=== PATIENT | female | born 1965 | race Caucasian/White ===

== ENCOUNTER → 2017-11-02 07:03 | Outpatient (CLI) | payer BC, SELFPAY ==
--- NOTE | 2017-11-02 07:07 | BI_ITS ---
MAMMOGRAPHY - BILATERAL SCREENING REASON FOR EXAM: Female, 51 years old. Routine annual screening examination. PERTINENT HISTORY: Sister with breast cancer. TECHNIQUE: Digital bilateral breast alena (3D mammographic acquisition) in the CC and MLO projections. 2-D mediolateral oblique (MLO) and craniocaudad (CC) views of both breasts were obtained. CAD: Full Field Digital Mammography with Computer Added Detection was performed. COMPARISON: Comparison is made with prior outside examination dated October 20, 2016. FINDINGS: Breast Composition: The breasts are heterogeneously dense, which may obscure small masses. There are no dominant masses or suspicious calcifications. Stable 7.9 mm x 7.4 mm fat-containing nodule in the upper lateral portion of the right breast. This most likely represents a benign appearing lymph node. No other significant abnormalities are identified. There has been no significant change since the prior study. BI/SCREENING MAMM (CAD), BILAT IMPRESSION: Stable bilateral screening mammogram. Yearly follow-up mammogram recommended. (A) ASSESSMENT CATEGORY: BIRADS Category 2: Benign. A letter regarding these results will be sent to the patient by the facility within 30 days. Approximately 10% of breast cancers are not detected by mammography. A normal mammogram should not delay biopsy of a clinically suspicious abnormality. [id number] Electronically Signed: Vlad Ignacio MD at 8:41 EDT Tel [phone], Service support ,
== END ==
PROVIDERS: Family Provider Family Medicine; PCP Family Medicine; Visit Provider Obstetrics & Gynecology
DX: Z12.31 Encounter for screening mammogram for malignant neoplasm of breast (principal)
CPT/HCPCS: 77063; 77067

== ENCOUNTER → 2018-04-02 14:44 | Outpatient (CLI) | payer BC, SELFPAY ==
[2018-04-02 17:25] LABS: Absolute Lymphocyte Count 1.94 X10^3/ul (0.83-4.51); Absolute Neutrophil Count 3.6 X10^3/uL (2.0-7.7); Basophil# 0.07 X10^3/uL; Basophil% 1.1 % (0-1); Eosinophil# 0.14 X10^3/uL; Eosinophils% 2.3 % (0-5); Hematocrit 33.2 % (37-47); Hemoglobin 9.5 g/dl (12.0-15.0); Lymphocyte # 1.94 X10^3/ul (4.0); Lymphocyte % 31.8 % (19-41); Mean Corp Hgb Conc 28.6 g/gl (32-36); Mean Corpuscular Hgb 21.3 pg (27.0-32.0); Mean Corpuscular Volume 74.4 fL (81-99); Mean Platelet Vol. 9.6 fl (6.2-12.0); Monocyte# 0.38 X10^3/uL; Monocyte% 6.2 % (0-10); Neutrophil # 3.57 X10^3/uL (2.7-7.7); Neutrophil % 58.6 % (47-70); Platelet Count 310 K/mm3 (150-450); RBC Distribution Width CV 16.8 % (11.6-14.6); RBC Distribution Width SD 46.4 fl (35.1-43.9); Red Blood Count 4.46 M/mm3 (4.2-5.4); White Blood Count 6.1 K/mm3 (4.4-11.0)
[2018-04-02 17:31] LABS: POSITIVE COUNT NO; POSITIVE DIFFERENTIAL NO; POSITIVE MORPHOLOGY NO
[2018-04-02 17:38] LABS: Vitamin D,25 Hydroxy 21.3 ng/mL (29.95-100.01)
[2018-04-02 17:40] LABS: AST(SGOT) 19 U/L (15-37); Alanine Aminotransfer ALT/SGPT 23 U/L (13-56); Albumin, Serum 3.8 g/dL (3.2-5.0); Alkaline Phosphatase 75 U/L (45-117); Anion Gap 7 (5-15); BUN 16 mg/dL (7-18); BUN/Creat Ratio 28.1 RATIO (10-20); Calcium,Total 8.5 mg/dL (8.5-10.1); Chloride 106 mmol/L (98-107); Cholesterol 209 mg/dL (200); Creatinine, Serum 0.57 mg/dL (0.55-1.02); EST Glomerular Filtration Rate 119 mL/min (>60); Est Glom Filt Rate - Afr Amer 144 mL/min (>60); Glucose 94 mg/dL (74-106); High Density Lipoprotein 45 mg/dL; Potassium 3.9 mmol/L (3.5-5.1); Protein, Total 7.8 g/dL (6.4-8.2); Sodium Level 140 mmol/L (136-145); Triglycerides 167 mg/dL; Very Low Density Lipoprotein 33 mg/dL (5-40)
[2018-04-02 18:02] LABS: Anisocytosis 1+; Hypochromasia 2+; Microcytosis 1+; Platelet Estimate ADEQUATE (ADEQ)
[2018-04-02 18:03] LABS: Ovalocyte RARE
--- OUTSIDE RECORDS SUMMARY | 2018-05-28 14:11 | XMS RPT_ITS ---
:1965 Author Organization OHIP Care Team Providers Name Role Phone Khadijah Hill Attending Unavailable Khadijah Hill Referring Unavailable Cebul III, Rinku Primary Care Unavailable Khadijah Hill Attending Unavailable Cebul III, Rinku Referring Unavailable Cebul III, Rinku Primary Care Unavailable Vega Strickland Attending Unavailable Vega Strickland Primary Care Unavailable Nurse, Standard Attending Unavailable Vega Strickland Referring Unavailable PROBLEMS PROBLEMS DATE TYPE CONDITION / CODE ATTENDING STATUS SOURCE 04/02/2018 Unknown Z00.00 - Encounter Vega Strickland Active Rony for general adult [facility] without abnormal Repository findings / Z00.00(ICD-10) 04/02/2018 Unknown E55.9 - Vitamin D Vega Strickland Active Rony deficiency, Community unspecified / Hospital E55.9(ICD-10) Repository 11/19/2017 Unknown Z01.419 - Encounter Yakov Hill for gynecological [facility] (general) (routine) Repository without abnormal findings / Z01.419(ICD-10) 01/19/2018 Unknown Z12.31 - Encounter Yakov Hill for screening [facility] mammogram for Hospital malignant neoplasm Repository of breast / Z12.31(ICD-10) PROCEDURES PROCEDURES No Procedure Records FoundRESULTS RESULTS CBC W/DIFF, AUTOMATED Collected: 04/02/2018 Status: F Source: RONY 2:45 PM [facility] REPOSITORY TYPE CODE TESTS RESULT OUT OF RANGE REFERENCE UNITS LAB L100.1000 4.4-11.0 K/mm3 Normal WBC 6.1 LAB L100.1200 4.2-5.4 M/mm3 Normal RBC 4.46 LAB L100.1300 12.0-15.0 g/dl Low HGB 9.5 LAB L100.1400 37-47 % Low HCT 33.2 LAB L100.1500 81-99 fL Low MCV 74.4 LAB L100.1600 27.0-32.0 pg Low MCH 21.3 LAB L100.1700 32-36 g/gl Low MCHC 28.6 LAB L100.1810 11.6-14.6 % High RDW CV 16.8 LAB L100.1820 35.1-43.9 fl High RDW SD 46.4 LAB L100.1900 150-450 K/mm3 Normal PLT 310 LAB L100.2000 6.2-12.0 fl Normal MPV 9.6 LAB L100.2100 47-70 % Normal NEUT% 58.6 LAB L100.2200 19-41 % Normal LY% 31.8 LAB L100.2300 0-10 % Normal MONO% 6.2 LAB L100.2400 0-5 % Normal EO% 2.3 LAB L100.2500 0-1 % High BASO% 1.1 LAB L100.2550 0.0-0.9 % Normal IM GRAN % 0.000 Result Comment: IG% - Immature Granulocytes (promyelocytes, myelocytes and metamyelocytes) > 1% indicates that a LEFT SHIFT is Present. LAB L100.2620 2.0-7.7 X10 3/uL Absolute Neut Normal 3.6 LAB L100.2720 0.83-4.51 X10 3/ul Absolute Lymph Normal 1.94 LAB L100.5500 ADEQ PLT EST Normal ADEQUATE LAB L100.7300 ANISO Normal 1+ LAB L100.7600 HYPOCHROMASIA Normal 2+ LAB L100.7700 MICROCYTES Normal 1+ LAB L100.8200 OVALOCYTE Normal RARE Performed By: #### L100.0100 #### [facility] [address] [place], [address] VITAMIN D,25 HYDROXY Collected: 04/02/2018 Status: F Source: MONTROSE 2:45 PM [facility] REPOSITORY TYPE CODE TESTS RESULT OUT OF REFERENCE UNITS RANGE LAB L506.1000 29.95-100.01 ng/mL Low Vitamin D 21.3 25-OH Result Comment: Vitamin D 25(OH) Status Range Deficiency <20 ng/mL (50nmol/L) Insuffciency 20 - 30 ng/mL (50 - 75 nmol/L) Sufficiency 30 - 100 ng/mL (75 - 250 nmol/L) Toxicity >100 ng/mL (>250 nmol/L) Performed By: #### L506.1000 #### [facility] [address] [place], [address] COMPREHENSIVE METABOLIC Collected: 04/02/2018 Status: F Source: RONY [facility] 2:45 PM [facility] REPOSITORY TYPE CODE TESTS RESULT OUT OF RANGE REFERENCE UNITS LAB L501.0100 74-106 mg/dL Normal GLU 94 Result Comment: Please note revised GLUCOSE reference range effective 2017. LAB L501.1000 7-18 mg/dL Normal BUN 16 LAB L501.1100 0.55-1.02 mg/dL Normal CREAT,SERUM 0.57 Result Comment: The validity of the calculated GFR AND GFRAA in patients over 70 years has not been determined. Clinical correlation is essential. LAB L501.1110 >60 mL/min Normal EST GFR 119 Result Comment: Non- GFR Calc LAB L501.1115 >60 mL/min Normal EST GFR - AA 144 Result Comment: GFR Calc LAB L501.1300 10-20 RATIO High BUN/CRE 28.1 LAB L501.1500 6.4-8.2 g/dL T Normal PROT 7.8 LAB L501.1800 3.2-5.0 g/dL Normal ALB 3.8 LAB L501.1950 2.2-4.2 g/dL Normal GLOB 4.0 LAB L501.2000 0.9-2.4 RATIO Normal A/G 1.0 LAB L501.2200 8.5-10.1 mg/dL CA Normal 8.5 LAB L501.4100 15-37 U/L Normal AST 19 LAB L501.4305 45-117 U/L Normal ALK P 75 LAB L501.4405 13-56 U/L Normal ALT 23 LAB L501.4600 0.20-1.00 mg/dL T Normal BILI 0.30 LAB L501.5300 136-145 mmol/L NA Normal 140 LAB L501.5600 3.5-5.1 mmol/L K Normal 3.9 LAB L501.5900 98-107 mmol/L CL Normal 106 LAB L501.6100 21.0-32.0 mmol/L Normal CO2 27.0 LAB L501.6200 5-15 Normal GAP 7 Performed By: #### L500.4050, L500.4100 #### [facility] [address] [place], [place], [id number] LIPID PROFILE Collected: 04/02/2018 Status: F Source: RONY 2:45 PM [facility] REPOSITORY TYPE CODE TESTS RESULT OUT OF RANGE REFERENCE UNITS LAB L501.4900 200 mg/dL High CHOL 209 Result Comment: <200 mg/dL Desirable 200-240 mg/dL Borderline >240 mg/dL High Risk LAB L501.5000 mg/dL Normal TRIG 167 Result Comment: The drugs N-Acetylcysteine and Metamizole may falsely depress this assay. Serum Triglycerides Reference Interval Normal <150 mg/dL Borderline high 150 - 199 mg/dL High 200 - 499 mg/dL Very High > or = 500 mg/dL LAB L501.6400 mg/dL Normal HDL 45 Result Comment: The drugs N-Acetylcysteine and Metamizole may falsely depress this assay. Reference Range HDL <40 mg/dL Low HDL Cholesterol HDL >or= 60 mg/dL High HDL Cholesterol LAB L501.6500 0-130 mg/dL High LDL 131 LAB L501.6600 5-40 mg/dL Normal VLDL 33 Performed By: #### L500.4050, L500.4100 #### [facility] [address] [place], [place], [id number] [employer] SPECIALIST OFFICE VISIT Observed: 11/19/2017 Status: F Source: RONY REPORT 5:02 PM [facility] REPOSITORY [facility] [address] [place] [address] OFFICE VISIT Date of Service: 11/19/17 MR#: [id number] Acct: [id number] Name: ELZBIETA JENNINGS Rep #: [id number] : 1965 Provider: Khadijah Hill MD Age/Sex: 52/F Location[place] [facility] Status: Signed Intake Vital Signs11/19/17 Height 5 ft 4 in 11/19/17 Weight: 128 lb 6 oz 11/19/17 Body Mass Index (BMI) 22.0 11/19/17 Blood Pressure 121/82 Intake Visit Reasons: ANNUAL Chief Complaint: est annual Library Media Assistant Required: No Is patient in pain?: No Allergies No Known Allergies Allergy (Unverified 11/19/17 16:25) Medications fexofenadine 180 mg tablet 180 mg PO Q24H 11/19/17 [History Confirmed 11/19/17] mometasone 50 mcg/actuation nasal spray 2 spray INTRANASAL QDAY 11/19/17 [History Confirmed 11/19/17] Is last menstrual period known: Yes Last Menstral Period: 11/15/17 Patient : No : No PFSH Medical History Asthma (Acute) Fibrocystic breast disease (Acute) Surgical History H/O tubal ligation (Acute) History of cholecystectomy (Acute) History of wisdom tooth extraction, class II edentulism (Acute) Family History Mother Thyroid disorder Diabetes Father Hypertension Sister Breast cancer Social History Smoking Status: Never smoker alcohol intake: never substance use type: does not use caffeine: Yes what type of physical activity do you participate in: walking seatbelt use: always do you feel safe at home: Yes Pregancy History 6 Elective abortions Hx Para 5 Spontaneous abortions Past Pregnancies Del. DateName GA/Weeks Outcome Route Bth WeighInfant GeLabor LgtAnesthesiDel LocatProvider FOB t n h a n HPI ANNUAL: Details: ELZBIETA JENNINGS is a 52 year old who presents for annual exam. Last PAP: [] History of abnormal PAP: [] Last mammogram: [] History of abnormal mammogram: [] Colon cancer screening: [] Other preventative health care screenings: [] Female Reproductive History Last Menstral Period: 11/15/17 Cycle Length: 21-35 Bleeding Duration: 7 Questions: Metorrhagia: No, Sexually active: Yes (no issues) ROS Const Constitutional: Reports as per HPI; denies poor appetite, fatigue, increased appetite, weight gain or weight loss Cardio Card: Denies chest pain Resp Resp: Denies dyspnea or cough GI GI: Reports as per HPI; denies bloating, abdominal pain, constipation, vomiting or nausea : Reports as per HPI, urinary incontinence (mild urine loss) and other; denies blood in urine, vaginal odor, vaginal itching, vaginal dryness, vaginal discharge, urinary urgency, urinary frequency, pelvic pain, painful urination, difficulty urinating, prolapse symptoms or nipple discharge Skin Skin/Breast: Denies breast pain, breast skin changes, nipple discharge, breast lump or changing lesions Exam Const General: cooperative, healthy appearing, comfortable, no acute distress, well developed, well groomed HENLA Head: normal to inspection, normocephalic Ears: hearing grossly normal bilaterally, external ears normal Nose: external nose normal Face and sinus: normal facial exam Neck Neck: normal visual inspection, full ROM, no lymphadenopathy Thyroid: thyroid normal Chest Chest palpation AND inspection: normal inspection of the chest Breast inspection: normal inspection of the breasts, normal inspection of the axillae Breast palpation: normal palpation of the breasts, normal palpation of the axillae, no axillary lymphadenopathy Resp Effort AND Inspection: normal respiratory effort GI Inspection: normal to inspection, non-distended Palpation: no guarding, soft, no hepatosplenomegaly General: bladder normal to palpation External Female Exam: normal external appearance, normal appearance of the urethra, no lesions Urethra: normal appearance of the urethra, normal palpation Speculum Exam - Vagina: normal appearance of the vagina, normal vaginal discharge Speculum Exam - Cervix: normal appearance of the cervix, no cervical discharge, no lesions, nontender Bimanual Exam- Vagina AND Uterus: No cervical tenderness, normal bimanual exam, uterine size normal, bladder normal to palpation, uterine mobility normal, uterine consistency normal, uterus non-tender, no cervical motion tenderness Bimanual Exam- Adnexa, other: normal adnexae, no adnexal masses, adnexae non-tender Skin General: no rashes or lesions noted Neuro General: alert, moves all extremities, no focal motor deficits Extrem General: no pedal edema, normal to inspection Psych Appearance: grossly normal Mental Status: mental status grossly normal Affect: normal affect Speech and Movement: speech and movement normal Attitude: cooperative Assessment AND Plan Problems 1. Encounter for gynecological examination without abnormal finding Z01.419 Plan Cervical cancer screening: pap hpv 2016 Breast cancer screening: mamm 11/02/17 other health maintenance examination reviewed and up to date. Encouraged maintenance of a healthy weight and active lifestyle and handout given. Calcium/vitamin D recommendations provided. Annual exam handout including recommendations for good health guidelines and basic screening information given. Problem list up to date, see problem list details for any additional plan information. Follow up in one year for annual health maintenance exam or sooner if needed. Coding Level of Care Code Off vis,est,prev 40-64yrs Diagnoses Encounter for gynecological examination without abnormal finding Z01.419 Gynecological examination findings: abnormal findings ABSENT 11/19/17 1702 <Electronically signed by Khadijah Hill MD> Date Khadijah Hill MD Cosign Signature: Date (if applicable) CC: SCREENING MAMM (CAD), Observed: 11/02/2017 Status: F Source: RONY JESSICA 7:07 AM [facility] REPOSITORY [facility] Imaging Services [address] [place] [address] SCREENING MAMM (CAD), BIL MR#: [id number] Acct: [id number] Name: ELZBIETA JENNINGS Rep #: [id number] : 1965 F 51 From: Vlad Ignacio MD PCP: Rinku Stanley III, MD Status: REG CLI Study: SCREENING MAMM (CAD), BILAT Date of Exam: 11/02/17 Exam# [id number] Ordering Dr: Khadijah Hill MD MAMMOGRAPHY - BILATERAL SCREENING REASON FOR EXAM: Female, 51 years old. Routine annual screening examination. PERTINENT HISTORY: Sister with breast cancer. TECHNIQUE: Digital bilateral breast alena (3D mammographic acquisition) in the CC and MLO projections. 2-D mediolateral oblique (MLO) and craniocaudad (CC) views of both breasts were obtained. CAD: Full Field Digital Mammography with Computer Added Detection was performed. COMPARISON: Comparison is made with prior outside examination dated October 20, 2016. FINDINGS: Breast Composition: The breasts are heterogeneously dense, which may obscure small masses. There are no dominant masses or suspicious calcifications. Stable 7.9 mm x 7.4 mm fat-containing nodule in the upper lateral portion of the right breast. This most likely represents a benign appearing lymph node. No other significant abnormalities are identified. There has been no significant change since the prior study. BI/SCREENING MAMM (CAD), BILAT IMPRESSION: Stable bilateral screening mammogram. Yearly follow-up mammogram recommended. (A) ASSESSMENT CATEGORY: BIRADS Category 2: Benign. A letter regarding these results will be sent to the patient by the facility within 30 days. Approximately 10% of breast cancers are not detected by mammography. A normal mammogram should not delay biopsy of a clinically suspicious abnormality. 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 ALLERGIES ALLERGIES DATE TYPE / CODE NAME / CODE REACTION SEVERITY SOURCE 11/19/2017 Drug No Known Unknown Gary [facility] Allergy/4160 Allergies/F00 [facility] [address](SNOMED [id number](RXNOR Repository CT) M) ENCOUNTERS ENCOUNTERS ADMIT/DISCHARGE ACCOUNT ADMITTING ENCOUNTER LOCATION SOURCE NUMBER CLASS 04/09/2018/ [id number] Ambulatory BMSBuilding:B Rony 8 6 MS.WSA [facility] Repository 04/02/2018 [id number] Ambulatory Gary Gary 9 [facility] ing:BFHLAB Repository 11/19/2017/ [id number] Ambulatory BMSBuilding:B Rony 8 3 [facility] Repository 11/02/2017 [id number] Ambulatory Gary Rony 5 [facility] ing:OPBI Repository PAYERS PAYERS ENCOUNTER GUARANTOR PAYER SUBSCRIBER SOURCE 04/09/2018 ELZBIETA Malik Primary TOMÁS Gary [id number] Insurance:ANTHEMPolic ZOLLINGERDOB: [facility] AMAYA OJEDA y Number: [id number], [place] [id number] Repository [address]Spz: (330) Date:9018-01-83EY [phone] () [id number] [address]WJ: 04/09/2018 Secondary NOT GIVENUNK Gary Insurance:SELF PAY [facility] Number: Effective Repository Date:2018-04-09 04/02/2018 ELZBIETA Malik Primary TOMÁS Rony [id number] Insurance:ANTHEMPolic ZOLLINGERDOB: [facility] y Number: [id number], [place] [id number] Repository [address]Jjm: (330) Date:6408-28-78UK [phone] () [address]NTMOUYD, [place] [address]KW: 04/02/2018 Secondary NOT GIVENUNK Rony Insurance:SELF PAY [facility] Number: Effective Repository Date:2018-04-02 11/19/2017 Tomás Primary Tomás Rony [id number] Insurance:ANTHEMPolic ZollingerDOB: [facility] y Number: [id number], [place] [id number] Repository [address]Bla: (330) Date:[id number] [phone] () [id number], [place] [address]HN: 11/19/2017 Secondary NOT GIVENUNK Gary Insurance:SELF PAY [facility] Number: Effective Repository Date:2017-11-19 11/02/2017 Tomás Primary Tomás [address] [id number] Insurance:ANTHEMPolic ZollingerDOB: [facility] [place] [facility] y Number: [id number], [place] [id number] Repository [address]Wmt: 330) Date:0161-95-51AI [phone] () [id number] [place] [address]IW: 11/02/2017 Secondary NOT GIVENUNK Gary Insurance:SELF PAY [facility]: Effective Repository Date:2017-09-11
== END ==
PROVIDERS: Family Provider Family Medicine; PCP Family Medicine; Visit Provider Family Medicine
DX: Z00.00 Encounter for general adult medical examination without abnormal findings (principal); E55.9 Vitamin D deficiency, unspecified
CPT/HCPCS: 36415; 80053; 80061; 82306; 85025

== ENCOUNTER 2018-05-14 06:57 | Day surgery (SDC) | payer BC, SELFPAY ==
[2018-05-14] VITALS (9 sets, daily range): BP systolic 103–137; BP diastolic 63–87; PULSE 74–96; RESP 14–18; TEMP 36.7–37.1; O2SAT 97–100; BMI 22.6
--- NOTE | 2018-05-14 07:53 | PCM.HP.STD ---
Problem List (1) Screening for intestinal cancer Status: Acute History of Present Illness Date of Admission: 05/14/18 The patient is a 52 year old F who presents for screening colonoscopy. She has not had a previous colonoscopy. She enjoys good health. She denies bright red blood per rectum or melena. No abdominal pain. No weight change. There is no family history of colon cancer Past Medical History Medical History: Medical History (Last Updated 11/19/17 @ 16:27 by Dyana Mauro) Asthma J45.909 Fibrocystic breast disease N60.19 History of wisdom tooth extraction, class II edentulism K08.492 Allergies Sulfa (Sulfonamide Antibiotics) Allergy (Verified 05/14/18 07:11) Rash amoxicillin [From Augmentin] Adverse Reaction (Verified 05/14/18 07:11) Vomiting clavulanic acid [From Augmentin] Adverse Reaction (Verified 05/14/18 07:11) Vomiting Home Medications: Ambulatory Orders Medication Instructions Recorded fexofenadine 180 mg tablet 180 mg PO Q24H 11/19/17 mometasone 50 mcg/actuation nasal 2 spray INTRANASAL QDAY PRN 11/19/17 spray Cholecalciferol (Vitamin D3) 5,000 unit PO MOTH 04/15/18 [Vitamin D3] I-X Herbal Supplement 2 tab PO BID 04/15/18 Surgical History: Surgical History (Last Updated 11/19/17 @ 16:27 by Dyana Mauro) H/O tubal ligation Z98.51 History of cholecystectomy Z90.49 Smoking Status: Never smoker Review of Systems Constitutional: Denies: Anorexia HEENT: Denies: Difficulty Swallowing Cardiovascular: Denies: Chest Pain Respiratory: Denies: Cough Gastrointestinal: Denies: Abdominal Pain, Diarrhea Endocrine: Denies: Change in Body Habitus VTE Information - Inpt Only VTE Present on Admission: No Patient Problems: Active and Suspected Problems (Last Updated 11/19/17 @ 16:27 by Dyana Mauro) Screening for intestinal cancer (Acute) - Physical Exam General: Alert, Oriented x3, Cooperative, No apparent distress HEENT: Atraumatic Oral: Moist Mucosa Neck: Supple Lungs: Clear to auscultation Cardiovascular: Regular rate, Regular Rhythm Abdomen: Bowel Sounds Present, Soft, Non Tender, Non-Distended Extremities: No Calf Tenderness Skin: No rashes Vital Signs Temp Pulse Resp BP Pulse Ox 98.8 F 96 14 130/87 H 100 05/14/18 07:15 05/14/18 07:15 05/14/18 07:15 05/14/18 07:15 05/14/18 07:15 Oxygen Delivery Method Room Air Weight: 127 lb 13.89 oz Body Mass Index (BMI) 22.6 Assessment/Plan All Active Problems (Last Updated 11/19/17 @ 16:27 by Dyana Mauro) Screening for intestinal cancer (Acute) I am recommending to the patient is screening colonoscopy with possible biopsy or polypectomy as indicated. She is aware of the technique, benefits, risks, alternatives. She has had an opportunity to ask and have questions answered. She presents via our open access program today Wally Stanley M.D., F.A.C.S.
--- NOTE | 2018-05-14 08:20 | OP.ENDO_ITS ---
Patient Name: Maryan Patiño Procedure Date: 05/14/2018 7:52 AM Date of : 1965 Age: 52 Procedure: Colonoscopy Indications: Screening for colorectal malignant neoplasm Providers: Wally Stanley MD Referring MD: Lucille Varela MD Medicines: Midazolam 4 mg IV, Meperidine 100 mg IV Patient Profile: Last Colonoscopy: none. The patient's first colonoscopy is today. Complications: No immediate complications. Procedure: Pre-Anesthesia Assessment: - Prior to the procedure, a History and Physical was performed, and patient medications and allergies were reviewed. The patient's tolerance of previous anesthesia was also reviewed. The risks and benefits of the procedure and the sedation options and risks were discussed with the patient. All questions were answered, and informed consent was obtained. Prior Anticoagulants: The patient has taken no previous anticoagulant or antiplatelet agents. ASA Grade Assessment: I - A normal, healthy patient. After reviewing the risks and benefits, the patient was deemed in satisfactory condition to undergo the procedure. After I obtained informed consent, the scope was passed under direct vision. Throughout the procedure, the patient's blood pressure, pulse, and oxygen saturations were monitored continuously. The colonoscope was introduced through the anus and advanced to the cecum, identified by appendiceal orifice and ileocecal valve. The colonoscopy was performed without difficulty. The patient tolerated the procedure well. The quality of the bowel preparation was good. The appendiceal orifice was photographed. Moderate Sedation: Moderate (conscious) sedation was personally administered by the endoscopist. The following parameters were monitored: oxygen saturation, heart rate, blood pressure, and response to care. Total physician intraservice time was 15 minutes. Scope In: 8:01:32 AM Scope Withdrawal Time 0 hours 9 minutes 25 seconds Scope Out: 8:15:06 AM Total Procedure Duration Time 0 hours 13 minutes 34 seconds Findings: The perianal and digital rectal examinations were normal. Scattered diverticula were found in the sigmoid colon. The exam was otherwise without abnormality. Impression: - Diverticulosis in the sigmoid colon. - The examination was otherwise normal. - No specimens collected. Recommendation: - Discharge patient to home. - Resume previous diet. - Continue present medications. - Repeat colonoscopy in 10 years for screening purposes. Procedure Code(s): --- Professional --- 22812, Colonoscopy, flexible; diagnostic, including collection of specimen(s) by brushing or washing, when performed (separate procedure) 92009, 59, Moderate sedation services provided by the same physician or other qualified health nurse care manager performing the diagnostic or therapeutic service that the sedation supports, requiring the presence of an independent trained observer to assist in the monitoring of the patient's level of consciousness and physiological status; initial 15 minutes of intraservice time, patient age 5 years or older Diagnosis Code(s): --- Professional --- Z12.11, Encounter for screening for malignant neoplasm of colon K57.30, Diverticulosis of large intestine without perforation or abscess without bleeding CPT copyright 2017 [employer]. All rights reserved. The codes documented in this report are preliminary and upon account support manager review may be revised to meet current compliance requirements. Wally Stanley MD 05/14/2018 8:20:12 AM This report has been signed electronically. Number of Addenda: 0 Note Initiated On: 05/14/2018 7:52 AM
== END 2018-05-14 09:03 | disposition home or self-care (01) ==
LOC: EN 06:58 → AC 07:00
PROVIDERS: Family Provider Family Medicine; PCP Family Medicine; Referring Provider Surgery; Visit Provider Surgery
PROC: 0DJD8ZZ Inspection of Lower Intestinal Tract, Via Natural or Artificial Opening Endoscopic (ICD-10-PCS; CPT 45378; principal; 2018-05-14 07:55)
DX: Z12.11 Encounter for screening for malignant neoplasm of colon (principal); K57.30 Diverticulosis of large intestine without perforation or abscess without bleeding; J45.909 Unspecified asthma, uncomplicated; Z90.49 Acquired absence of other specified parts of digestive tract
CPT/HCPCS: 45378; 99152; 99153; J7120

== ENCOUNTER → 2018-11-03 | Outpatient (CLI) | payer BC, SELFPAY ==
[2018-05-14 07:15] VITALS: BMI 22.6
--- NOTE | 2018-11-03 07:05 | BI_ITS ---
MAMMOGRAPHY - BILATERAL SCREENING REASON FOR EXAM: Female, 52 years old. Routine annual screening examination. PERTINENT HISTORY: Sister with breast cancer. Aunt with breast cancer. TECHNIQUE: Digital bilateral breast joceline (3D mammographic acquisition) in the CC and MLO projections. 2-D mediolateral oblique (MLO) and craniocaudad (CC) views of both breasts were obtained. CAD: Full Field Digital Mammography with Computer Added Detection was performed. COMPARISON: Comparison is made with prior study dated November 02, 2017. FINDINGS: Breast Composition: The breasts are heterogeneously dense, which may obscure small masses. There are no dominant masses or suspicious calcifications. Stable 8 mm x 7 mm fat-containing nodule in the upper lateral aspect of the right breast suggestive of a benign-appearing lymph node. No other significant abnormalities are identified. There has been no significant change since the prior study. BI/SCREEN MAMM (CAD) W/JOCELINE BILAT IMPRESSION: Stable bilateral screening mammogram. Yearly follow-up mammogram recommended. (A) ASSESSMENT CATEGORY: BIRADS Category 2: Benign. A letter regarding these results will be sent to the patient by the facility within 30 days. Approximately 10% of breast cancers are not detected by mammography. A normal mammogram should not delay biopsy of a clinically suspicious abnormality. [id number] Electronically Signed: Vlad Ignacio, at 10:26 EDT , Service support ,
== END | disposition home or self-care (01) ==
PROVIDERS: Family Provider Family Medicine; PCP Family Medicine; Referring Provider Obstetrics & Gynecology; Visit Provider Obstetrics & Gynecology
DX: Z12.31 Encounter for screening mammogram for malignant neoplasm of breast (principal)
CPT/HCPCS: 77063; 77067

== ENCOUNTER → 2018-11-22 | Outpatient (CLI) | payer BC, SELFPAY ==
[2018-11-22 09:18] VITALS: BMI 22.6
[2018-11-22 10:55] LABS: Absolute Lymphocyte Count 1.33 X10^3/uL (0.83-4.51); Absolute Neutrophil Count 3.9 X10^3/uL (2.0-7.7); Basophil# 0.06 X10^3/uL; Eosinophil# 0.26 X10^3/uL; Eosinophils% 4.3 % (0-5); Hematocrit 39.8 % (37-47); Hemoglobin 12.5 g/dL (12.0-15.0); Lymphocyte # 1.33 X10^3/ul (4.0); Lymphocyte % 22.1 % (19-41); Mean Corp Hgb Conc 31.4 g/dL (32-36); Mean Corpuscular Hgb 28.9 pg (27.0-32.0); Mean Corpuscular Volume 91.9 fL (81-99); Mean Platelet Vol. 10.5 fl (6.2-12.0); Monocyte# 0.45 X10^3/uL; Monocyte% 7.5 % (0-10); NRBC Flagged by Analyzer 0 % (0-5); Neutrophil % 64.9 % (47-70); Platelet Count 206 K/mm3 (150-450); RBC Distribution Width CV 15.7 % (11.6-14.6); RBC Distribution Width SD 53.5 fl (35.1-43.9); Red Blood Count 4.33 M/mm3 (4.2-5.4)
[2018-11-26 11:18] LABS: HPV APTIMA, High Risk Negative (Negative)
== END | disposition home or self-care (01) ==
PROVIDERS: Family Provider Family Medicine; PCP Family Medicine; Referring Provider Obstetrics & Gynecology; Visit Provider Obstetrics & Gynecology
DX: D64.9 Anemia, unspecified (principal); Z12.4 Encounter for screening for malignant neoplasm of cervix
CPT/HCPCS: 36415; 85025; 87624; 88175; G0145

== ENCOUNTER → 2019-11-07 07:02 | Outpatient (CLI) | payer BC, SELFPAY ==
[2018-11-22 09:18] VITALS: BMI 22.6
--- NOTE | 2019-11-07 07:03 | BI_ITS ---
MAMMOGRAPHY - BILATERAL SCREENING REASON FOR EXAM: Female, 54 years old. Routine annual screening examination. PERTINENT HISTORY: Sister with breast cancer. TECHNIQUE: Digital bilateral breast joceline (3D mammographic acquisition) in the CC and MLO projections. 2-D mediolateral oblique (MLO) and craniocaudad (CC) views of both breasts were obtained. CAD: Full Field Digital Mammography with Computer Added Detection was performed. COMPARISON: Comparison is made with prior study dated November 03, 2018 and November 02, 2017. FINDINGS: Breast Composition: The breasts are heterogeneously dense, which may obscure small masses. There are no dominant masses or suspicious calcifications. Stable 6.6 mm x 7 mm fat-containing nodule in the upper lateral aspect of the right breast suggestive of a small benign-appearing left. No other significant abnormalities are identified. There has been no significant change since the prior study. BI/SCREEN MAMM (CAD) W/JOCELINE BILAT IMPRESSION: Stable bilateral screening mammogram. Yearly follow-up mammogram recommended. (A) ASSESSMENT CATEGORY: BIRADS Category 2: Benign. A letter regarding these results will be sent to the patient by the facility within 30 days. Approximately 10% of breast cancers are not detected by mammography. A normal mammogram should not delay biopsy of a clinically suspicious abnormality. [id number] Electronically Signed: Vlad Ignacio, at 8:42 EDT , Service support ,
== END ==
PROVIDERS: PCP Family Medicine; Referring Provider Obstetrics & Gynecology; Visit Provider Obstetrics & Gynecology
DX: Z12.31 Encounter for screening mammogram for malignant neoplasm of breast (principal)
CPT/HCPCS: 77063; 77067

== ENCOUNTER → 2020-03-26 10:26 | Outpatient (CLI) | payer BC, SELFPAY ==
[2019-11-30 08:28] VITALS: BMI 22.6
[2020-03-26 12:54] LABS: Absolute Neutrophil Count 6.1 X10^3/uL (2.0-7.7); Basophil# 0.08 X10^3/uL; Eosinophils% 1.2 % (0-5); Hematocrit 39.8 % (37-47); Mean Corp Hgb Conc 30.2 g/dL (32-36); Mean Corpuscular Volume 89.4 fL (81-99); Mean Platelet Vol. 10.5 fl (6.2-12.0); Monocyte# 0.54 X10^3/uL; Monocyte% 6.4 % (0-10); NRBC Flagged by Analyzer 0 % (0-5); Neutrophil # 6.05 X10^3/uL (2.7-7.7); Platelet Count 291 K/mm3 (150-450); RBC Distribution Width CV 14.9 % (11.6-14.6); RBC Distribution Width SD 49.8 fl (35.1-43.9); Red Blood Count 4.45 M/mm3 (4.2-5.4); White Blood Count 8.4 K/mm3 (4.4-11.0)
[2020-03-26 13:34] LABS: ALB/GLOB Ratio 1.1 RATIO (0.9-2.4); AST(SGOT) 17 U/L (15-37); Alanine Aminotransfer ALT/SGPT 27 U/L (13-56); Albumin, Serum 3.8 g/dL (3.2-5.0); Alkaline Phosphatase 87 U/L (45-117); Anion Gap 6 (5-15); BUN 14 mg/dL (7-18); BUN/Creat Ratio 22.1 RATIO (10-20); Calcium,Total 8.4 mg/dL (8.5-10.1); Chloride 108 mmol/L (98-107); Cholesterol 231 mg/dL (200); Creatinine, Serum 0.63 mg/dL (0.55-1.02); EST Glomerular Filtration Rate 105 mL/min (>60); Est Glom Filt Rate - Afr Amer 127 mL/min (>60); Globulin 3.5 g/dL (2.2-4.2); Glucose 87 mg/dL (74-106); High Density Lipoprotein 64 mg/dL; Potassium 3.6 mmol/L (3.5-5.1); Protein, Total 7.3 g/dL (6.4-8.2); Sodium Level 139 mmol/L (136-145); Triglycerides 83 mg/dL; Very Low Density Lipoprotein 17 mg/dL (5-40)
== END ==
PROVIDERS: PCP Family Medicine; Visit Provider Family Medicine
DX: Z00.00 Encounter for general adult medical examination without abnormal findings (principal)
CPT/HCPCS: 36415; 80053; 80061; 85025

== ENCOUNTER → 2020-11-26 07:05 | Outpatient (CLI) | payer BC, SELFPAY ==
[2020-05-28 08:11] VITALS: BMI 22.6
--- NOTE | 2020-11-26 07:07 | BI_ITS ---
MAMMOGRAPHY - BILATERAL SCREENING REASON FOR EXAM: Female, 55 years old. Routine annual screening examination. PERTINENT HISTORY: Sister with breast cancer. TECHNIQUE: Digital bilateral breast joceline (3D mammographic acquisition) in the CC and MLO projections. 2-D mediolateral oblique (MLO) and craniocaudad (CC) views of both breasts were obtained. CAD: Full Field Digital Mammography with Computer Added Detection was performed. COMPARISON: Comparison is made with prior study dated 11/07/2019 and 11/03/2018. FINDINGS: Breast Composition: There are scattered areas of fibroglandular density. There are no dominant masses or suspicious calcifications. Stable 8 mm x 7 mm well-defined nodule in the upper lateral aspect of the right breast. The nodule contains fat within it and most likely represents a lymph node. No other significant abnormalities are identified. There has been no significant change since the prior study. BI/SCRN MAMM (CAD)W/JOCELINE BILAT IMPRESSION: Stable bilateral screening mammogram. Yearly follow-up mammogram recommended. (A) ASSESSMENT CATEGORY: BIRADS Category 2: Benign. A letter regarding these results will be sent to the patient by the facility within 30 days. Approximately 10% of breast cancers are not detected by mammography. A normal mammogram should not delay biopsy of a clinically suspicious abnormality. [id number] Electronically Signed: Vlad Ignacio MD at 8:47 EDT , Service support ,
== END ==
PROVIDERS: PCP Family Medicine; Referring Provider Obstetrics & Gynecology; Visit Provider Obstetrics & Gynecology
DX: Z12.31 Encounter for screening mammogram for malignant neoplasm of breast (principal)
CPT/HCPCS: 77063; 77067

== ENCOUNTER 2021-11-27 06:56 | Outpatient (CLI) | payer BC, SELFPAY ==
--- NOTE | 2021-11-27 06:57 | BI_ITS ---
MAMMOGRAPHY - BILATERAL SCREENING REASON FOR EXAM: Female, 56 years old. Routine annual screening examination. PERTINENT HISTORY: Sister with breast cancer. TECHNIQUE: Digital bilateral breast joceline (3D mammographic acquisition) in the CC and MLO projections. 2-D mediolateral oblique (MLO) and craniocaudad (CC) views of both breasts were obtained. CAD: Full Field Digital Mammography with Computer Added Detection was performed. COMPARISON: Comparison is made with prior study dated 11/26/2020 and 11/07/2019. FINDINGS: Breast Composition: There are scattered areas of fibroglandular density. There are no dominant masses or suspicious calcifications. Stable 8 mm x 7 mm well-defined nodule in the upper outer aspect of the right breast. Fat is seen within it most likely representing intramammary lymph node. Stable small benign appearing bilateral axillary nodes. No other significant abnormalities are identified. There has been no significant change since the prior study. BI/SCRN MAMM (CAD)W/JOCELINE BILAT IMPRESSION: Stable bilateral screening mammogram. Yearly follow-up mammogram recommended. (A) ASSESSMENT CATEGORY: BIRADS Category 2: Benign. A letter regarding these results will be sent to the patient by the facility within 30 days. Approximately 10% of breast cancers are not detected by mammography. A normal mammogram should not delay biopsy of a clinically suspicious abnormality. [id number] Electronically Signed: Vlad Ignacio MD at 8:24 EDT ,
== END 2021-11-27 23:59 | disposition home or self-care (01) ==
LOC: OPBI 06:56
PROVIDERS: PCP Family Medicine; Visit Provider Obstetrics & Gynecology
DX: Z12.31 Encounter for screening mammogram for malignant neoplasm of breast (principal)
CPT/HCPCS: 77063; 77067

== ENCOUNTER → 2022-03-14 | Outpatient (CLI) | payer BC, SELFPAY ==
[2022-03-14 12:15] LABS: Cholesterol 238 mg/dL (200); High Density Lipoprotein 53 mg/dL; Triglycerides 101 mg/dL; Very Low Density Lipoprotein 20 mg/dL (5-40)
== END | disposition home or self-care (01) ==
LOC: BFHLAB 09:27
PROVIDERS: PCP Family Medicine; Visit Provider Family Medicine
DX: Z00.00 Encounter for general adult medical examination without abnormal findings (principal)
CPT/HCPCS: 36415; 80061

== ENCOUNTER → 2022-12-01 | Outpatient (CLI) | payer BC, SELFPAY ==
--- NOTE | 2022-12-01 07:10 | BI_ITS ---
MAMMOGRAPHY - BILATERAL SCREENING REASON FOR EXAM: Female, 57 years old. Routine annual screening examination. PERTINENT HISTORY: Sister with breast cancer. TECHNIQUE: Digital bilateral breast joceline (3D mammographic acquisition) in the CC and MLO projections. 2-D mediolateral oblique (MLO) and craniocaudad (CC) views of both breasts were obtained. CAD: Full Field Digital Mammography with Computer Added Detection was performed. COMPARISON: Comparison is made with prior study dated November 27, 2021 and November 26, 2020. FINDINGS: Breast Composition: There are scattered areas of fibroglandular density. There are no dominant masses or suspicious calcifications. No other significant abnormalities are identified. There has been no significant change since the prior study. BI/SCRN MAMM (CAD)W/JOCELINE BILAT IMPRESSION: Stable bilateral screening mammogram. Yearly follow-up mammogram recommended. (A) ASSESSMENT CATEGORY: BIRADS Category 1: Negative. A letter regarding these results will be sent to the patient by the facility within 30 days. Approximately 10% of breast cancers are not detected by mammography. A normal mammogram should not delay biopsy of a clinically suspicious abnormality. [id number] Electronically Signed: Vlad Ignacio MD at 8:34 EDT ,
== END | disposition home or self-care (01) ==
PROVIDERS: PCP Family Medicine; Visit Provider Obstetrics & Gynecology
DX: Z12.31 Encounter for screening mammogram for malignant neoplasm of breast (principal); Z80.3 Family history of malignant neoplasm of breast
CPT/HCPCS: 77063; 77067

== ENCOUNTER 2022-12-02 08:00 | Outpatient (RCR) | payer BC, SELFPAY ==
--- NOTE | 2022-09-10 16:51 | HP.OTEVAL_ITS ---
Patient's Visit Information ELZBIETA JENNINGS is a 56 year old F, referred to Occupational Therapy by Dr. Hiro Escobar MD, with a diagnosis of CTS, right UCL tear. Date of Evaluation: 09/09/22 Occupational Therapist: Laura Reyez, OTEstela/Felice, CHT - Subjective This 56 year old female was seen for OT eval with dx of CTS. pt sates she struggled with weakness that that limited use of her right hand and then decided to seek medical advice. After nerve conduction Dr. guo CTR along with tendon transfer to allow pt to have pinch and opposition. 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 pt is right handed. pt would like to return to using her right hand with ADLs and IADLs at soon as she can. - ADLs Comments: pt states she is trying to mtg her home tasks with using her left hand. pt states all tasks are more time consuming- and what she can not do has help - Pain right hand 2 Pain Intensity Range: 3, 4 - ROM Wrist: right 25/30 left 70/65 CMC: right + 15 left 15* MP: right positioned at 30* left 60 IP: right 10 left 60 Radial Abduction: right NT right 45 Palmar Abduction: right NT left WNL Opposition: Kapandji opposition scale right NT left 10 (10=distal ortega crease) - Strength Health Education Director: right NT left 40# Lateral Pinch: right NT left 6# Tripod Pinch: right NT left 4# Strength Comments: will test right strength at later date due to precautions and newly healing structures - Sensation Thumb: right 2.83 left 2.83 Index: right 2.83 left 2.83 Middle: right 2.83 left 2.83 Ring: right 2.83 left 2.83 Little: right 2.83 left 283 Sensation Comments: pt demo normal sensation. noted dry skin throughout median nerve distribution. pt also states she has a numb feeling in her median nerve distribution fingers - Quick DASH-Disab of Arm,Shoulder& Hand Quick DASH Score: 75.0000 - Goals Goal:100% adherence to protocol: Yes Comment: Dr. Escobar's Sammy Opponesplasty & CTR s/p protocol Goal:Daily scar massage when approriate: Yes Goal:ROM equal to unaffected hand: Yes Goal:Health Education Director/Pinch strength at least 75% of unaffected hand: Yes Goal:No pain with affected hand use: Yes Goal:Full use of affected hand in daily activities including: Yes - Rehabilitation General Assessment: Pt arrives to OT 2 weeks and one day s/p from a right CTR with sammy opponesplasty with right MP UCL repair. Pt arrives with orthosis on and is demo with newly healing structures, limited ROM and inability to use right hand for ADLs and IADls. Pt would benefit from skilled OTR/L, CHT services to assist pt in recovery from reconstruction of right hand. Today therapist gave pt copy of Dr. Escobar's Eckert Opponesplasty and CTR Post op guidelines. therapist ed. pt on changes to guidelines as Dr. Duvall has to repair her UCL while performing the reconstruction. pt demo understanding and agree to POC. Rehabilitation Potential: Good - Anticipated Interventions A/AAROM/PROM, Strengthening, Scar Care, Triggerpoint Release, Desensitization, Sensory Retraining, Modalities, Orthoses, Joint Protection/Energy Conservation, Ergonomic Education, Fine Motor Coord/Kalyan, Education re assistive Equipment, Education re Diagnosis, Home Program - Visit Plan Frequency: 1-2x /Week Duration: 2 Months TEXT: Thank you for the opportunity to evaluate your patient. For Medicare and Medicare HMO plans, please review the plan of care and approve it. It will need to be FAXED BACK to us at [phone] for Medicare purposes. Please let me know if there are questions or concerns regarding this plan of care. Physician Signature:__ Date:
--- NOTE | 2022-12-02 08:17 | HP.OTDCSUM ---
Discharge Summary D/C Summary: It has been my pleasure to treat ELZBIETA JENNINGS under orders from Dr. Hiro Escobar MD, for the diagnosis of CTS, right UCL tear for a total of 14 visit(s). Please see the following information for a summary of their discharge status. Overall Improvement % Improvement: 80 Objective Objective/Function: Pt demo with a right wrist ROM 60/45 right cmc flexion at 10* right MP flexion 45* right IP flex at 25* RA 45* right thread laster strength 30# right lateral pinch 10# right tripod pinch 6# Goals Patient Goals: Regain Mobility, Regain Strength, Decrease Pain, Improve Fine Motor Skills, Use Hand/Wrist/Arm Normally Again and Be More Independent in ADLS Goal:100% adherence to protocol: Yes Goal:Daily scar massage when approriate: Yes Goal:ROM equal to unaffected hand: Yes Goal:Market Development Director/Pinch strength at least 75% of unaffected hand: Yes Goal:No pain with affected hand use: Yes Goal:Full use of affected hand in daily activities including work: Yes Plan Plan: pt using elastomer comfort cool light daily use D/C Information Discharge Comments: pt was seen for 14 OT session per insurance approval. pt arrives s/p 13 weeks from CTR and matt tendon transfer. pt continues to make gains with her ROM and strength and feels she is ready for D/C with HEP. pt is using her LMB to increase right RF PIP ext. and is able to get her finger straight- working on reverse blocking to increase extension. pt states she has returned to performing all ADLs and IADLS at QUIN level- more difficulty with FMS but doing better. Pt will cont. with her HEP for ROM strength and scar mtg along with stretching. d/c sentence: If there are questions or concerns regarding this patient's occupational therapy, please fell free to call me at [phone]. Thank you for the referral of this patient. Sincerely, Laura Reyez, OTR/L, CHT
== END 2022-12-02 19:00 | disposition home or self-care (01) ==
LOC: OT 08:00
PROVIDERS: PCP Family Medicine; Referring Provider Orthopaedic Surgery; Visit Provider Orthopaedic Surgery
DX: G56.01 Carpal tunnel syndrome, right upper limb (principal)
CPT/HCPCS: 97035; 97110; 97140; 97166; 97168; 97530

== ENCOUNTER → 2022-12-26 | Outpatient (CLI) | payer BC, SELFPAY ==
--- NOTE | 2022-12-26 09:00 | CER_PTH ---
PATIENT: ELZBIETA JENNINGS LOC: [facility] U#:[id number] AGE/SX: 57/F ROOM: RE12/26/[address]: Dr. Khadijah Hill MD : 1965 BED: DIS: 12/26/2022 SPEC #: [id number] RECD: 12/26/22 13:14 STATUS: JESSIKA REApple #: [id number] [place]: 12/26/22 09:[address]: Khadijah Hill DEPT: SURGICAL PATHOLOGY RECD BY: Nayla Miller ENTERED: 12/26/22 13:14 SP TYPE: CERV OTHR DR: Dr. Vega Strickland, DO Tissues: Uterine cervix, NOS Procedures: Surgery Specimen Level IV HEADER OPERATION: Polypectomy PRE-OP DIAGNOSIS: Cervical polyp TISSUE SUBMITTED: Cervical polyp MICROSCOPIC DIAGNOSIS Cervical polyp, polypectomy: Benign endocervical polyp. SJ:caleb 12/29/2022 MICROSCOPIC DESCRIPTION Slides are reviewed. GROSS DESCRIPTION Received is one container labeled with the patient's name and not further designated. The specimen consists of a spicer-pink polyp measuring 1.0 x 0.5 x 0.1 cm. The specimen is totally submitted in one cassette. / SJ:caleb 12/26/2022 TC:5 CPT: 05364
[2022-12-31 16:09] LABS: HPV APTIMA, High Risk Negative (Negative)
== END | disposition home or self-care (01) ==
LOC: LABSPEC 12:12
PROVIDERS: PCP Family Medicine; Referring Provider Obstetrics & Gynecology; Visit Provider Obstetrics & Gynecology
DX: N84.1 Polyp of cervix uteri (principal)
CPT/HCPCS: 87624; 88175; 88305; G0145

== ENCOUNTER → 2023-03-06 | Outpatient (CLI) | payer BC, SELFPAY ==
[2023-03-06 07:52] LABS: Absolute Neutrophil Count 3.8 X10^3/uL (2.0-7.7); Basophil# 0.08 X10^3/uL; Basophil% 1.3 % (0-1); Eosinophil# 0.23 X10^3/uL; Eosinophils% 3.8 % (0-5); Hematocrit 48.1 % (37-47); Hemoglobin 15.9 g/dL (12.0-15.0); Lymphocyte % 24.6 % (19-41); Mean Corp Hgb Conc 33.1 g/dL (32-36); Mean Corpuscular Hgb 29.8 pg (27.0-32.0); Mean Corpuscular Volume 90.1 fL (81-99); Mean Platelet Vol. 10.3 fl (6.2-12.0); Monocyte# 0.42 X10^3/uL; Monocyte% 6.9 % (0-10); NRBC Flagged by Analyzer 0 % (0-5); Neutrophil # 3.84 X10^3/uL (2.7-7.7); Neutrophil % 63.1 % (47-70); Platelet Count 212 K/mm3 (150-450); RBC Distribution Width CV 12.3 % (11.6-14.6); RBC Distribution Width SD 40.3 fl (35.1-43.9); Red Blood Count 5.34 M/mm3 (4.2-5.4); White Blood Count 6.1 K/mm3 (4.4-11.0)
[2023-03-06 08:06] LABS: ALB/GLOB Ratio 1.1 RATIO (0.9-2.4); AST(SGOT) 18 U/L (15-37); Alanine Aminotransfer ALT/SGPT 32 U/L (13-56); Albumin, Serum 3.9 g/dL (3.2-5.0); Alkaline Phosphatase 105 U/L (45-117); Anion Gap 3 (5-15); BUN 14 mg/dL (7-18); BUN/Creat Ratio 22.6 RATIO (10-20); Calcium,Total 9.1 mg/dL (8.5-10.1); Chloride 106 mmol/L (98-107); Cholesterol 237 mg/dL (200); Creatinine, Serum 0.62 mg/dL (0.55-1.02); EST Glomerular Filtration Rate 106 mL/min (>60); Est Glom Filt Rate - Afr Amer 128 mL/min (>60); Globulin 3.6 g/dL (2.2-4.2); Glucose 107 mg/dL (74-106); High Density Lipoprotein 57 mg/dL; Potassium 3.8 mmol/L (3.5-5.1); Protein, Total 7.5 g/dL (6.4-8.2); Sodium Level 140 mmol/L (136-145); Triglycerides 104 mg/dL; Very Low Density Lipoprotein 21 mg/dL (5-40)
[2023-03-06 08:07] LABS: Vitamin D,25 Hydroxy 42.7 ng/mL
== END | disposition home or self-care (01) ==
PROVIDERS: PCP Family Medicine; Referring Provider Family Medicine; Visit Provider Family Medicine
DX: Z00.00 Encounter for general adult medical examination without abnormal findings (principal); E55.9 Vitamin D deficiency, unspecified
CPT/HCPCS: 36415; 80053; 80061; 82306; 85025

== ENCOUNTER 2023-05-01 10:30 | Outpatient (RCR) | payer BC, SELFPAY ==
--- NOTE | 2023-04-14 15:55 | HP.OTEVAL_ITS ---
Patient's Visit Information Visit Information Visit Information: ELZBIETA JENNINGS is a 57 year old F, referred to Occupational Therapy by Dr. Hiro Escobar MD, with a diagnosis of UCL tear left. Date of Evaluation: 04/14/23 Occupational Therapist: Laura Reyez, OTR/L, CHT Subjective Subjective: Pt arrives to OT session with dx left hand joint instability. Due to limitations with using her left hand with ADLs and IADLs. pt decided to have sx to increase her left thumb stability. pt states s/p repair left thumb ulnar collateral ligament 02/23/23 pt was casted for 6 weeks. pt states her ROM is improving each day. she wants to know what she need to do to recover strength and use of her left hand. ADLs Dressing: Button shirt and Shoes Fasteners: Tie shoes, Buttons, Snaps and [place] Kitchen: Open jars Pain left thumb: Current Pain Intensity: 0 Pain Intensity Range: 0 and 3 ROM Wrist: right 65/50 left 60/45 CMC: right 10 left 15 MP: right 50 left 35 IP: right 35 left 30 Opposition: Kapandji opposition scale left 7 ( PIP crease of LF) Strength Lead Java Software Engineer: right 33# left 20# Lateral Pinch: right 10# left 8# Tripod Pinch: right 10# left 4# Sensation Sensation Comments: pt states distal to incision pt states this area feels funny burning sensation at times Quick DASH-Disab of Arm,Shoulder& Hand Quick DASH Score: 40.9075 Goals Comment: UCL repair guidelines Goal:Daily scar massage when approriate: Yes Goal:ROM equal to unaffected hand: Yes Comment: increase left IP flexion by 15* Goal:Lead Java Software Engineer/Pinch strength at least 75% of unaffected hand: Yes Goal:No pain with affected hand use: Yes Goal:Full use of affected hand in daily activities including work: Yes Rehabilitation General Assessment: pt arrives 7 weeks and 4 days s/p from UCL repair. Pt demo limited ROM and strength increasing difficulty with bilateral hand skills. Pt would benefit from skilled OT services 1-2x week for 3 weeks to return pt to a PLOF. today therapist ed. pt on AROM, IP blocking and light benzene operator strength. pt demo understanding and agree to POC. Rehabilitation Potential: Good Anticipated Interventions Anticipated Interventions: A/AAROM/PROM, Strengthening, Scar Care, Triggerpoint Release, Modalities, Orthoses, Joint Protection/Energy Conservation, Fine Motor Coord/Kalyan, Education re assistive Equipment, Education re Diagnosis and Home Program Visit Plan Frequency: 1-2x /Week Duration: 2-4 Weeks TEXT: Thank you for the opportunity to evaluate your patient. For Medicare and Medicare HMO plans, please review the plan of care and approve it. It will need to be FAXED BACK to us at [phone] for Medicare purposes. Please let me know if there are questions or concerns regarding this plan of care. Physician Signature: Date:
--- NOTE | 2023-04-15 07:40 | HP.OTEVAL ---
Patient's Visit Information Visit Information Visit Information: ELZBIETA JENNINGS is a 57 year old F, referred to Occupational Therapy by Dr. Hiro Escobar MD, with a diagnosis of UCL tear left. Date of Evaluation: 04/14/23 Occupational Therapist: Laura Reyez, OTR/L, CHT Subjective Subjective: Pt arrives to OT session with dx left hand joint instability. Due to limitations with using her left hand with ADLs and IADLs. pt decided to have sx to increase her left thumb stability. pt states s/p repair left thumb ulnar collateral ligament 02/23/23 pt was casted for 6 weeks. pt states her ROM is improving each day. she wants to know what she need to do to recover strength and use of her left hand. ADLs Dressing: Button shirt and Shoes Fasteners: Tie shoes, Buttons, Snaps and [place] Kitchen: Open jars Pain left thumb: Current Pain Intensity: 0 Pain Intensity Range: 0 and 3 ROM Wrist: right 65/50 left 60/45 CMC: right 10 left 15 MP: right 50 left 35 IP: right 35 left 30 Opposition: Kapandji opposition scale left 7 ( PIP crease of LF) Strength Envelope Machine Adjuster: right 33# left 20# Lateral Pinch: right 10# left 8# Tripod Pinch: right 10# left 4# Sensation Sensation Comments: pt states distal to incision pt states this area feels funny burning sensation at times Quick DASH-Disab of Arm,Shoulder& Hand Quick DASH Score: 40.9075 Goals Comment: UCL repair guidelines Goal:Daily scar massage when approriate: Yes Goal:ROM equal to unaffected hand: Yes Comment: increase left IP flexion by 15* Goal:Envelope Machine Adjuster/Pinch strength at least 75% of unaffected hand: Yes Goal:No pain with affected hand use: Yes Goal:Full use of affected hand in daily activities including work: Yes Rehabilitation General Assessment: pt arrives 7 weeks and 4 days s/p from UCL repair. Pt demo limited ROM and strength increasing difficulty with bilateral hand skills. Pt would benefit from skilled OT services 1-2x week for 3 weeks to return pt to a PLOF. today therapist ed. pt on AROM, IP blocking and light call center consultant strength. pt demo understanding and agree to POC. Rehabilitation Potential: Good Anticipated Interventions Anticipated Interventions: A/AAROM/PROM, Strengthening, Scar Care, Triggerpoint Release, Modalities, Orthoses, Joint Protection/Energy Conservation, Fine Motor Coord/Kalyan, Education re assistive Equipment, Education re Diagnosis and Home Program Visit Plan Frequency: 1-2x /Week Duration: 2-4 Weeks TEXT: Thank you for the opportunity to evaluate your patient. For Medicare and Medicare HMO plans, please review the plan of care and approve it. It will need to be FAXED BACK to us at [phone] for Medicare purposes. Please let me know if there are questions or concerns regarding this plan of care. Physician Signature: Date:
--- NOTE | 2023-05-29 09:23 | OTREVAL_ITS ---
Re-Evaluation Intro: Dr. Hiro Escobar MD, It has been my pleasure to treat ELZBIETA JENNINGS over the last 5 visits for UCL tear left. Please see the progress note below for an update on the occupational therapy plan of care! Subjective Subjective: 10 weeks and 1 days s/p from left UCL of left thumb - feeling fine Objective Objective/Function: MP 35 * IP 35* left printing equipment mechanic apprentice strength 35# left lateral pinch 8# left tripod 4# Plan Plan Frequency: 1-2x /Week Duration: 2-4 Weeks Plan: cont with ROM and strength Goals Goals Patient Goals: Regain Mobility, Improve Fine Motor Skills and Use Hand/Wrist/Arm Normally Again Goal:Daily scar massage when approriate: Yes Goal:ROM equal to unaffected hand: Yes Goal:Bleacher [employer]/Pinch strength at least 75% of unaffected hand: Yes Goal:No pain with affected hand use: Yes Goal:Full use of affected hand in daily activities including work: Yes Anticipated Interventions Anticipated Interventions Anticipated Interventions: A/AAROM/PROM, Strengthening, Scar Care, Triggerpoint Release, Modalities, Orthoses, Joint Protection/Energy Conservation, Fine Motor Coord/Kalyan, Education re assistive Equipment, Education re Diagnosis and Home Program Re-Evaluation Ending Re-evaluation ending: Please do not hesitate to contact me at [phone] by phone or if you have questions or concerns regarding this new plan of care! Sincerely, Laura Reyez, JAMESR/L, CHT
--- NOTE | 2023-08-12 15:23 | HP.OT.NRP ---
Patient Information Patient Information: ELZBIETA JENNINGS was seen in my office for initial evaluation on 04/14/23. The following Plan of Care was established for this patient: POC Established Initial Frequency: 1-2x /Week Initial Duration: 2-4 Weeks Plan: cont with ROM and strength Anticipated Interventions Anticipated Interventions: A/AAROM/PROM, Strengthening, Scar Care, Triggerpoint Release, Modalities, Orthoses, Joint Protection/Energy Conservation, Fine Motor Coord/Kalyan, Education re assistive Equipment, Education re Diagnosis and Home Program Last Seen Last Seen: This patient was last seen in our office 05/01/23. Pertinent comments regarding their Occupational therapy will appear below: pt was seen for 5 OT sessions. Due to insurance limitation pt cont. with HEP. No further apts. have been scheduled at this time. pt d/c. At this point I will be discontinuing this patient from occupational therapy. I would be happy to see this patient again in the future if found appropriate by the physician. Thank you! Laura Reyez, OTR/L, CHT
== END 2023-05-01 19:00 | disposition home or self-care (01) ==
LOC: OT 10:30
PROVIDERS: PCP Family Medicine; Referring Provider Orthopaedic Surgery; Visit Provider Orthopaedic Surgery
DX: M00-M99 Diseases of the musculoskeletal system and connective tissue (principal)
CPT/HCPCS: 97110; 97140; 97166; 97530

== ENCOUNTER → 2023-12-03 | Outpatient (CLI) | payer BC, SELFPAY ==
--- NOTE | 2023-12-03 07:09 | BI_ITS ---
MAMMOGRAPHY - BILATERAL SCREENING REASON FOR EXAM: Female, 58 years old. Routine annual screening examination. PERTINENT HISTORY: Sister with breast cancer. TECHNIQUE: Digital bilateral breast joceline (3D mammographic acquisition) in the CC and MLO projections. 2-D mediolateral oblique (MLO) and craniocaudad (CC) views of both breasts were obtained. CAD: Full Field Digital Mammography with Computer Added Detection was performed. COMPARISON: Comparison is made with prior study dated December 01, 2022 and November 27, 2021. FINDINGS: Breast Composition: There are scattered areas of fibroglandular density. There are no dominant masses or suspicious calcifications. Stable 7.3 mm intramammary lymph node seen in the deep upper lateral aspect of the right breast. No other significant abnormalities are identified. There has been no significant change since the prior study. BI/SCRN MAMM (CAD)W/JOCELINE BILAT IMPRESSION: Stable bilateral screening mammogram. Yearly follow-up mammogram recommended. (A) ASSESSMENT CATEGORY: BIRADS Category 2: Benign. A letter regarding these results will be sent to the patient by the facility within 30 days. Approximately 10% of breast cancers are not detected by mammography. A normal mammogram should not delay biopsy of a clinically suspicious abnormality. [id number] Electronically Signed: Vlad Ignacio MD at 9:18 EDT ,
== END | disposition home or self-care (01) ==
PROVIDERS: PCP Family Medicine; Referring Provider Obstetrics & Gynecology; Visit Provider Obstetrics & Gynecology
DX: Z12.31 Encounter for screening mammogram for malignant neoplasm of breast (principal)
CPT/HCPCS: 77063; 77067

== ENCOUNTER → 2024-02-25 | Outpatient (CLI) | payer BC, SELFPAY | END | disposition home or self-care (01) | PROVIDERS: PCP Family Medicine; Referring Provider Nurse Practitioner Women's Health; Visit Provider Nurse Practitioner Women's Health | DX: N89.8 Other specified noninflammatory disorders of vagina (principal) | CPT/HCPCS: 87070; 87077; 87205 ==

== ENCOUNTER → 2024-03-03 | Outpatient (CLI) | payer BC, SELFPAY ==
[2024-03-03 06:44] LABS: Absolute Lymphocyte Count 1.83 X10^3/uL (0.83-4.51); Absolute Neutrophil Count 3.9 X10^3/uL (2.0-7.7); Basophil# 0.06 X10^3/uL; Basophil% 0.9 % (0-1); Eosinophil# 0.34 X10^3/uL; Eosinophils% 5.1 % (0-5); Hematocrit 44.5 % (37-47); Hemoglobin 14.9 g/dL (12.0-15.0); Lymphocyte # 1.83 X10^3/ul (0.83-4.51); Lymphocyte % 27.4 % (19-41); Mean Corp Hgb Conc 33.5 g/dL (32-36); Mean Corpuscular Hgb 30.1 pg (27.0-32.0); Mean Corpuscular Volume 89.9 fL (81-99); Mean Platelet Vol. 10.6 fl (6.2-12.0); Monocyte% 7.5 % (0-10); NRBC Flagged by Analyzer 0 % (0-5); Neutrophil # 3.92 X10^3/uL (2.7-7.7); Neutrophil % 58.8 % (47-70); Platelet Count 194 K/mm3 (150-450); RBC Distribution Width CV 12.2 % (11.6-14.6); RBC Distribution Width SD 40.3 fl (35.1-43.9); Red Blood Count 4.95 M/mm3 (4.2-5.4); White Blood Count 6.7 K/mm3 (4.4-11.0)
[2024-03-03 07:49] LABS: Vitamin D,25 Hydroxy 36.8 ng/mL
[2024-03-03 07:58] LABS: ALB/GLOB Ratio 1.1 RATIO (0.9-2.4); AST(SGOT) 20 U/L (15-37); Alanine Aminotransfer ALT/SGPT 25 U/L (13-56); Albumin, Serum 3.8 g/dL (3.2-5.0); Alkaline Phosphatase 130 U/L (45-117); Anion Gap 7 (5-15); BUN 18 mg/dL (7-18); BUN/Creat Ratio 28.1 RATIO (10-20); Calcium,Total 9.1 mg/dL (8.5-10.1); Chloride 108 mmol/L (98-107); Cholesterol 210 mg/dL (200); Creatinine, Serum 0.64 mg/dL (0.55-1.02); EST Glomerular Filtration Rate 102 mL/min (>60); Est Glom Filt Rate - Afr Amer 123 mL/min (>60); Globulin 3.4 g/dL (2.2-4.2); Glucose 93 mg/dL (74-106); High Density Lipoprotein 64 mg/dL; Potassium 3.9 mmol/L (3.5-5.1); Protein, Total 7.2 g/dL (6.4-8.2); Sodium Level 142 mmol/L (136-145); Triglycerides 82 mg/dL; Very Low Density Lipoprotein 16 mg/dL (5-40)
== END | disposition home or self-care (01) ==
LOC: LAB 06:05
PROVIDERS: PCP Family Medicine; Referring Provider Family Medicine; Visit Provider Family Medicine
DX: Z00.00 Encounter for general adult medical examination without abnormal findings (principal); E55.9 Vitamin D deficiency, unspecified
CPT/HCPCS: 36415; 80053; 80061; 82306; 85025

== ENCOUNTER → 2024-12-05 | Outpatient (CLI) | payer BC, SELFPAY ==
--- NOTE | 2024-12-05 07:15 | BI_ITS ---
EXAM: SCRN MAMM (CAD)W/JOCELINE BILAT DATE: 12/05/2024 CLINICAL HISTORY: F, Age 59 y/o , SCREEN FOR BREAST CANCER Sister with breast cancer. TECHNIQUE: SCRN MAMM (CAD)W/JOCELINE BILAT COMPARISON: Prior exam(s) dated December 03, 2023.. FINDINGS: TISSUE DENSITY: There are scattered areas of fibroglandular density. Bilateral Breast Mammographic Findings: No significant masses, calcifications or other abnormalities are identified. Stable 7.3 mm intramammary lymph node seen in the deep upper lateral aspect of the right breast. No suspicious masses, areas of developing architectural distortion, or suspicious calcifications. There has been no significant interval change. BI/SCRN MAMM (CAD)W/JOCELINE BILAT IMPRESSION: Stable examination. OVERALL FINAL ASSESSMENT BI-RADS 2: BENIGN RECOMMENDATION: Routine annual follow-up in 1 Year A letter with findings and recommendations will be mailed to the patient. Reading Location: [facility]
--- OUTSIDE RECORDS SUMMARY | 2024-12-05 07:19 | XMS RPT_ITS | CCD ---
Author Organization [facility] Care Team Providers Care Store Leader Name Role Phone Sherrie Kovacs Unavailable Unavailab Khadijah Gray MD Unavailable [phone] CEBUL III, RINKU A Unavailable Unavailable CEBUL III, RINKU A Unavailable Unavailable Khadijah Hill MD Unavailable [phone] Dr. Vega Strickland Primary Care Provider [phone] Dr. Vega Strickland Referring Provider Dr. Khadijah Hill Attending Provider Dr. Vega Strickland Primary Care Provider [phone] Dr. Vega Strickland Referring Provider Dr. Khadijah Hill Attending Provider Dr. Vega Strickland Primary Care Provider [phone] Dr. Vega Strickland Referring Provider Dr. Khadijah Hill Attending Provider [phone] ORDERLYTammy Attending Unavailable Vega Strickland Primary Care Unavailable Vega Strickland Referring Unavailable Vega Strickland Primary Care Unavailable Khadijah Hill Referring Unavailable Khadijah Hill Attending Unavailable Vega Strickland Primary Care Unavailable Vega Strickland Referring Unavailable Justina Alves Attending Unavailable Beto COURT ORDERLY, Tammy Attending Unavailable Vega Strickland Primary Care Unavailable Vega Strickland Referring Unavailable Vega Strickland Primary Care Unavailable Vega Strickland Referring Unavailable Vega Strickland Attending Unavailable Marco A, Vega Primary Care Unavailable Beto COURT ORDERLY, Tammy Referring Unavailable Tammy Pérez NP Attending Unavailable Allergies Allergy Classification Reported Allergen(s) Allergy Type Date of Onset Reaction(s) Facility (3 sources) amoxicillin / clavulanate drug allergy 7 N/V [facility] (3 sources) Sulfonamides (Antibiotic) drug allergy 7 HIves [facility] (8 sources) Sulfonamides (Antibiotic); Translations: [SULFA (SULFONAMIDE ANTIBIOTICS)] Propensity to adverse reactions to drug (disorder) 6 AOF, Rash [facility] Repository (1 source) AMOXICILLIN-POT CLAVULANATE; Translations: [AMOXICILLIN-POT CLAVULANATE] Propensity to adverse reactions to drug (disorder) [facility] OTHER; Translations: [OTHER] Propensity to adverse reactions (disorder) 6 [facility] Repository (6 sources) Amoxicillin Drug Allergy 1 Vomiting [facility] (6 sources) Clavulanate Drug Allergy 1 Vomiting [facility] (1 source) Amoxicillin Drug Allergy 4 [facility] Repository (1 source) Clavulanate Drug Allergy 4 [facility] Repository Medications Current Medications Medication Drug Class(es) Dates Sig (Normalized) Sig (Original) azelastine hydrochloride 0.137 mg/actuat metered dose nasal spray (11 sources) Histamine-1 Receptor Antagonist Start: 12-23-2021 take 1 spray(s) nasal route twice daily Azelastine Active 2 SPRAY INTRANASAL TWICE A DAY December 23, 2021 12:00am administer into each nostril Start: 11-30-2019 End: 12-20-2020 take 1 spray(s) nasal route twice daily Azelastine Discontinued 2 SPRAY INTRANASAL TWICE A DAY November 30, 2019 12:00am December 20, 2020 9:42am administer into each nostril Dietary Supplement (3 sources) Start: 12-26-2022 Dietary Supple ment Active CAP PO December 25, 2022 11:00pm Start: 12-26-2022 Dietary Supple ment Active CAP PO December 26, 2022 12:00am fexofenadine hydrochloride 180 mg oral tablet (9 sources) Histamine-1 Receptor Antagonist Start: 11-19-2017 take 1 tablet by mouth every twenty-four hours Fexofenadine (Iraida Allergy) 180 mg tablet Active 180 MG PO Q24H November 19, 2017 12:00am IRAIDA ALLERGY 180 MG TABS PRN FEXOFENADINE HCL [id number] Khadijah Hill MD triamcinolone acetonide 0.055 mg/actuat metered dose nasal spray (5 sources) Corticosteroid Start: 12-23-2021 take 1 spray(s) nasal route once daily Triamcinolone Acetonide (Nasacort) 55 mcg aerosol,spray Active 2 SPRAY INTRANASAL DAILY December 23, 2021 12:00am administer into each nostril Completed/Discontinued Medications Medication Drug Class(es) Dates Sig (Normalized) Sig (Original) cholecalciferol 0.125 mg oral capsule (6 sources) Vitamin D Start: 04-15-2018 End: 11-22-2018 take 5000 [IU] by mouth once Cholecalciferol (Vitamin D3) Discontinued 5000 UNIT PO MOTH April 15, 2018 1:00am November 22, 2018 9:17am ferrous sulfate 325 mg oral tablet (6 sources) Start: 11-22-2018 End: 11-30-2019 take 325 mg by mouth once daily Ferrous Sulfate Discontinued 325 MG PO DAILY November 22, 2018 12:00am November 30, 2019 8:27am I-X Herbal Supplement (6 sources) Start: 04-15-2018 End: 11-22-2018 take 2 tablets by mouth twice daily I-X Herbal Supplement Discontinued 2 TABLET PO TWICE A DAY April 15, 2018 12:00am November 22, 2018 8:17am Start: 04-15-2018 End: 11-22-2018 take 2 tablets by mouth twice daily I-X Herbal Supplement Discontinued 2 TABLET PO TWICE A DAY April 15, 2018 1:00am November 22, 2018 9:17am mometasone furoate 0.05 mg/actuat metered dose nasal spray (15 sources) Corticosteroid Start: 11-30-2019 End: 12-20-2020 take 1 spray(s) nasal route once daily Mometasone (Nasonex) 50 mcg/actuation spray,non-aerosol Discontinued 2 SPRAY INTRANASAL DAILY November 30, 2019 12:00am [place] 19th, 2021 9:43am administer into each nostril Start: 11-19-2017 End: 11-22-2018 Mometasone (Nasonex) 50 mcg/ actuation spray,non-aerosol Discontinued 2 SPRAY INTRANASAL daily November 19, 2017 12:00am November 22, 2018 9:17am Start: 11-17-2016 NASONEX 50 MCG /ACT SUSP PRN MOMETASONE FUROATE [id number] Khadijah Hill MD Start: 11-17-2016 NASONEX 50 MCG /ACT SUSP PRN MOMETASONE FUROATE [id number] Khadijah Hill MD Multivitamin preparation (6 sources) Start: 12-20-2020 End: 12-23-2021 take 1 tablet by mouth once daily Multivitamin Discontinued 1 TABLET PO DAILY December 20, 2020 12:00am December 23, 2021 10:16am Start: 12-20-2020 End: 12-23-2021 take 1 tablet by mouth once daily Multivitamin Discontinued 1 TABLET PO DAILY December 19, 2020 11:00pm December 23, 2021 9:16am Start: 12-20-2020 take 1 tablet by araceli th once daily Multivitamin Active 1 TABLET PO DAILY December 20, 2020 12:00am Problems Active Problems Problem Classification Problem Date Documented Da te Episodic/Chronic Other screening for suspected conditions (not mental disorders or infectious disease) (7 sources) Patient encounter status; Translations: [Encounter for screening for malignant neoplasm of intestinal tract, unspecified] Onset: 12-01-2024 05-14-2018 Episodic Prolapse of female genital organs (18 sources) Cystocele; Translations: [Cystocele, unspecified] Onset: 12-31-2023 Chronic Unclassified (1 source) Unknown / UNK(Unknown) Onset: 10-31-2016 Past or Other Problems Problem Classification Problem Date Documented Date Episodic/Chronic Benign neoplasm of uterus (10 sources) Intramural leiomyoma of uterus; Translations: [Intramural leiomyoma of uterus] Onset: 12-31-2023 Episodic Other female genital disorders (3 sources) Enlarged uterus; Translations: [Hypertrophy of uterus] Onset: 11-17-2016 11-17-2016 Episodic Other female genital disorders (1 source) Other specified noninflammatory disorders of vagina; Translations: [Other specified noninflammatory disorders of vagina] Onset: 03-17-2024 Episodic Unclassified (2 sources) Gynecologic examination ; Translations: [Encounter for gynecological examination (general) (routine) with abnormal findings] Onset: 11-17-2016 Resolved: 11-18-2016 11-17-2016 Results Test Name Value Interpretation Reference Range Facility CBC W/Diff, Automatedon 10-3 Absolute Lymph 1.83 X10 3/uL Normal 0.83-4.51 [facility] Comment on above: Performed By: #### L 500.4050, L500.4100, L100.0100, L506.1000 #### [facility] [address] [place], [address] Absolute Neut 3.9 X10 3/uL Normal 2.0-7.7 [facility] Comment on above: Performed By: #### L 500.4050, L500.4100, L100.0100, L506.1000 #### [facility] [address] [place], [address] Basophils/100 WBC (Bld) 0.9 % Normal 0-1 [facility] Comment on above: Performed By: #### L 500.4050, L500.4100, L100.0100, L506.1000 #### [facility] [address] [place], [address] Eosinophils/100 WBC (Bld) 5.1 % High 0-5 [facility] Comment on above: Performed By: #### L 500.4050, L500.4100, L100.0100, L506.1000 #### [facility] [address] [place], [address] Erythrocyte distribution width (RBC) [Ratio] 12.2 % Normal 11.6-14.6 [facility] Comment on above: Performed By: #### L 500.4050, L500.4100, L100.0100, L506.1000 #### [facility] [address] [place], [address] Hematocrit (Bld) [Volume fraction] 44.5 % Normal 37-47 [facility] Comment on above: Performed By: #### L 500.4050, L500.4100, L100.0100, L506.1000 #### [facility] [address] [place], [address] Hemoglobin (Bld) [Mass/Vol] 14.9 g/dL Normal 12.0-15.0 [facility] Comment on above: Performed By: #### L 500.4050, L500.4100, L100.0100, L506.1000 #### [facility] [address] [place], [address] IG% 0.300 Normal 0.0-0.9 [facility] Comment on above: Result Comment: IG% - Immature Granulocytes (promyelocytes, myelocytes and metamyelocytes) > 1% indicates that a LEFT SHIFT is Present. Performed By: #### L 500.4050, L500.4100, L100.0100, L506.1000 #### [facility] [address] [place], [address] Lymphocytes/100 WBC (Bld) 27.4 % Normal 19-41 [facility] Comment on above: Performed By: #### L 500.4050, L500.4100, L100.0100, L506.1000 #### [facility] [address] [place], [address] MCH (RBC) [Entitic mass] 30.1 pg Normal 27.0-32.0 [facility] Comment on above: Performed By: #### L 500.4050, L500.4100, L100.0100, L506.1000 #### [facility] [address] [place], [address] MCHC (RBC) [Mass/Vol] 33.5 g/dL Normal 32-36 [facility] Comment on above: Performed By: #### L 500.4050, L500.4100, L100.0100, L506.1000 #### [facility] [address] [place], [address] MCV (RBC) [Entitic vol] 89.9 fL Normal 81-99 [facility] Comment on above: Performed By: #### L 500.4050, L500.4100, L100.0100, L506.1000 #### [facility] [address] [place], [address] Monocytes/100 WBC (Bld) 7.5 % Normal 0-10 [facility] Comment on above: Performed By: #### L 500.4050, L500.4100, L100.0100, L506.1000 #### [facility] [address] [place], [address] Neutrophils/100 WBC (Bld) 58.8 % Normal 47-70 [facility] Comment on above: Performed By: #### L 500.4050, L500.4100, L100.0100, L506.1000 #### [facility] [address] [place], [address] Nucleated RBC (Bld) [#/Vol] 0 10*3/uL Normal 0-5 [facility] Comment on above: Performed By: #### L 500.4050, L500.4100, L100.0100, L506.1000 #### [facility] [address] [place], [address] Platelet mean volume (Bld) [Entitic vol] 10.6 fL Normal 6.2-12.0 [facility] Comment on above: Performed By: #### L 500.4050, L500.4100, L100.0100, L506.1000 #### [facility] [address] [place], [address] Platelets (Bld) [#/Vol] 194 10*3/uL Normal 150-450 [facility] Comment on above: Performed By: #### L 500.4050, L500.4100, L100.0100, L506.1000 #### [facility] [address] [place], [address] RBC (Bld) [#/Vol] 4.95 10*6/uL Normal 4.2-5.4 [facility] Comment on above: Performed By: #### L 500.4050, L500.4100, L100.0100, L506.1000 #### [facility] [address] [place], [address] RDW SD 40.3 fl Normal 35.1-43.9 [facility] Comment on above: Performed By: #### L 500.4050, L500.4100, L100.0100, L506.1000 #### [facility] [address] [place], [address] WBC (Bld) [#/Vol] 6.7 10*3/uL Normal 4.4-11.0 [facility] Comment on above: Performed By: #### L 500.4050, L500.4100, L100.0100, L506.1000 #### [facility] [address] [place], [address] Comprehensive Metabolic [facility] 03-03-2024 Albumin [Mass/Vol] 3.8 g/dL Normal 3.2-5.0 [facility] Comment on above: Performed By: #### L 500.4050, L500.4100, L100.0100, L506.1000 #### [facility] [address] [place], [address] Albumin/Globulin [Mass ratio] 1.1 {ratio} Normal 0.9-2.4 [facility] Comment on above: Performed By: #### L 500.4050, L500.4100, L100.0100, L506.1000 #### [facility] [address] [place], [address] ALK P 130 U/L High 45-117 [facility] Comment on above: Performed By: #### L 500.4050, L500.4100, L100.0100, L506.1000 #### [facility] [address] [place], [address] ALT [Catalytic activity/Vol] 25 U/L Normal 13-56 [facility] Comment on above: Performed By: #### L 500.4050, L500.4100, L100.0100, L506.1000 #### [facility] [address] [place], [address] AST [Catalytic activity/Vol] 20 U/L Normal 15-37 [facility] Comment on above: Performed By: #### L 500.4050, L500.4100, L100.0100, L506.1000 #### [facility] [address] [place], [address] Bilirubin [Mass/Vol] 0.70 mg/dL Normal 0.20-1.00 [facility] Comment on above: Result Comment: For patients on eltrombopag therapy, use of Dimension [place] TBIL is not recommended. Performed By: #### L 500.4050, L500.4100, L100.0100, L506.1000 #### [facility] [address] [place], [address] BUN/CRE 28.1 RATIO High 10-20 [facility] Comment on above: Performed By: #### L 500.4050, L500.4100, L100.0100, L506.1000 #### [facility] [address] [place], [address] CA,Total 9.1 mg/dL Normal 8.5-10.1 [facility] Comment on above: Performed By: #### L 500.4050, L500.4100, L100.0100, L506.1000 #### [facility] [address] [place], [address] Chloride [Moles/Vol] 108 mmol/L High 98-107 [facility] Comment on above: Performed By: #### L 500.4050, L500.4100, L100.0100, L506.1000 #### [facility] [address] [place], [address] CO2 [Moles/Vol] 28.0 mmol/L Normal 21.0-32.0 [facility] Comment on above: Performed By: #### L 500.4050, L500.4100, L100.0100, L506.1000 #### [facility] [address] [place], [address] Creatinine [Mass/Vol] 0.64 mg/dL Normal 0.55-1.02 [facility] Comment on above: Result Comment: The validity of the calculated GFR GFRAA in patients over 70 years has not been determined. Clinical correlation is essential. Performed By: #### L 500.4050, L500.4100, L100.0100, L506.1000 #### [facility] [address] [place], [address] EST GFR - AA 123 mL/min Normal >60 [facility] Comment on above: Result Comment: Afri can Haitian GFR Calc Performed By: #### L 500.4050, L500.4100, L100.0100, L506.1000 #### [facility] [address] [place], [address] GAP 7 Normal 5-15 [facility] Comment on above: Performed By: #### L 500.4050, L500.4100, L100.0100, L506.1000 #### [facility] [address] [place], [address] GFR/1.73 sq M.predicted among non-blacks MDRD (S/P/Bld) [Vol rate/Area] 102 mL/min/{1.73_m2} Normal >60 [facility] Comment on above: Result Comment: Non- GFR Calc Performed By: #### L 500.4050, L500.4100, L100.0100, L506.1000 #### [facility] [address] [place], [address] Globulin (S) [Mass/Vol] 3.4 g/dL Normal 2.2-4.2 [facility] Comment on above: Performed By: #### L 500.4050, L500.4100, L100.0100, L506.1000 #### [facility] [address] [place], [address] Glucose [Mass/Vol] 93 mg/dL Normal 74-106 [facility] Comment on above: Performed By: #### L 500.4050, L500.4100, L100.0100, L506.1000 #### [facility] [address] [place], [address] Potassium [Moles/Vol] 3.9 mmol/L Normal 3.5-5.1 [facility] Comment on above: Performed By: #### L 500.4050, L500.4100, L100.0100, L506.1000 #### [facility] [address] [place], [address] Sodium [Moles/Vol] 142 mmol/L Normal 136-145 [facility] Comment on above: Performed By: #### L 500.4050, L500.4100, L100.0100, L506.1000 #### [facility] [address] [place], [address] T PROT 7.2 g/dL Normal 6.4-8.2 [facility] Comment on above: Performed By: #### L 500.4050, L500.4100, L100.0100, L506.1000 #### [facility] [address] [place], [address] Urea nitrogen [Mass/Vol] 18 mg/dL Normal 7-18 [facility] Comment on above: Performed By: #### L 500.4050, L500.4100, L100.0100, L506.1000 #### [facility] [address] [place], [address] Lipid Profileon 03-03-2024 Cholesterol [Mass/Vol] 210 mg/dL High 200 [facility] Comment on above: Result Comment: <200 mg/dL Desirable 200-240 mg/dL Borderline >240 mg/dL High Risk Performed By: #### L 500.4050, L500.4100, L100.0100, L506.1000 #### [facility] [address] [place], [address] Cholesterol in HDL [Mass/Vol] 64 mg/dL Normal [facility] Comment on above: Result Comment: The drugs N-Acetylcysteine and Metamizole may falsely depress this assay. Reference Range HDL <40 mg/dL Low HDL Cholesterol HDL >or= 60 mg/dL High HDL Cholesterol Performed By: #### L 500.4050, L500.4100, L100.0100, L506.1000 #### [facility] [address] [place], [address] Cholesterol in LDL [Mass/Vol] 130 mg/dL Normal 0-130 [facility] Comment on above: Performed By: #### L 500.4050, L500.4100, L100.0100, L506.1000 #### [facility] [address] [place], [address] Cholesterol in VLDL [Mass/Vol] 16 mg/dL Normal 5-40 [facility] Comment on above: Performed By: #### L 500.4050, L500.4100, L100.0100, L506.1000 #### [facility] [address] [place], [address] Triglyceride [Mass/Vol] 82 mg/dL Normal [facility] Comment on above: Result Comment: The drugs N-Acetylcysteine and Metamizole may falsely depress this assay. Serum Triglycerides Reference Interval Normal <150 mg/dL Borderline high 150 - 199 mg/dL High 200 - 499 mg/dL Very High > or = 500 mg/dL Performed By: #### L 500.4050, L500.4100, L100.0100, L506.1000 #### [facility] [address] [place], [address] Vitamin D,25 Hydroxyon 03-03 Vitamin D 25-OH 36.8 ng/mL Normal [facility] Comment on above: Result Comment: Lindsay min D 25(OH) Status Range Deficiency <20 ng/mL (50nmol/L) Insufficiency 20 - 30 ng/mL (50 - 75 nmol/L) Sufficiency 30 - 100 ng/mL (75 - 250 nmol/L) Toxicity >100 ng/mL (>250 nmol/L) Performed By: #### L 500.4050, L500.4100, L100.0100, L506.1000 #### [facility] [address] [place], [address] Genital Culture Comprehensiv maximiliano 02-27-2024 VAC Reason for Exam: vaginal itching Normal vaginal rory isolated. No yeast, Gardnerella, or Neisseria isolated. Streptococcus group B Amount Growth 2+ Normal [facility] Comment on above: Performed By: #### M 100.3200, M100.2000 #### [facility] [address] [place], [address] Gram Stainon 02-26-2024 GS Reason for Exam: vaginal itching Gram Stain 1+ Gram positive rods 1+ Epithelial cells No Gram negative diplococci Rare Gram positive cocci in chains Rare White Blood Cells Normal [facility] Comment on above: Performed By: #### M 100.3200, M100.2000 #### [facility] [address] [place], [address] Field Foreman Office Visit Reporton 02-25-2024 Field Foreman Office Visit Report [facility] [place] [address], [address] [place] [address] OFFICE VISIT Date of Service: 02/25/24 MR#: [id number] Acct: [id number] Name: ELZBIETA JENNINGS Rep #: [id number] : 1965 Provider: MISSY munroe Age/Sex: 58/F Location: [facility] [place] Status: Signed Intake Vital Signs 01/19/24 11:03 02/25/24 13:55 02/25/24 14:00 Height 5 ft 4 in 5 ft 4 in 5 ft 4 in Weight: 132 lb BMI 22.6 BP 100/66 Intake Visit Reasons: itch/irritation Chief Complaint: Itch/irritation Skin Care Instructor Required: No Is patient in pain?: No Allergies Sulfa (Sulfonamide Antibiotics) Allergy (Verified 02/25/24 13:54) Rash amoxicillin (From Augmentin) Adverse Reaction (Verified 02/25/24 13:54) Vomiting clavulanic acid (From Augmentin) Adverse Reaction (Verified 02/25/24 13:54) Vomiting Medications ???Medication ???Instructions ???Recorded ???Confirmed ???Type fexofenadine 180 mg tablet 180 mg PO Q24H 11/19/17 02/25/24 History (Iraida Allergy) azelastine 137 mcg (0.1 %) nasal 2 spray intranasal BID 12/23/21 02/25/24 History spray triamcinolone acetonide 55 mcg 2 spray intranasal DAILY 12/23/21 02/25/24 History nasal spray aerosol (Nasacort) dietary supplement cap PO 12/26/22 02/25/24 History herbal drugs cap PO 12/31/23 02/25/24 History estradiol 0.01% (0.1 mg/gram) See Rx Instructions vaginal 01/19/24 02/25/24 Rx vaginal cream .COMPLEX #42.5 grams Is last menstrual period known: No Post menopausal: Yes Patient : No : No PFSH Medical History Asthma Fibrocystic breast disease Surgical History History of carpal tunnel surgery of right wrist History of wisdom tooth extraction, class II edentulism H/O tubal ligation History of cholecystectomy Family History Mother Thyroid disorder Diabetes Father Hypertension Cancer squamous cell cancer Sister Breast cancer Social History Smoking Status: Never smoker alcohol intake: never substance use type: does not use caffeine: No what type of physical activity do you participate in: aerobics frequency: 5-6 times per week seatbelt use: always do you feel safe at home: Yes additional social history: -Tomás HPI itch/irritation Details: ELZBIETA JENNINGS is a 58 year old who presents for vaginal itching end of last week that has actually improved. She did note increased discharge last week. She was away from home and initially thought UTI. Those symptoms have resolved. She is using estradiol cream and wanted to confirm not from that. History 6 Elective abortions Hx Para 5 Spontaneous abortions Hx # Term Pregnancies Ectopic pregnancies Hx # Pregnancies Multiple births # of living children Past Pregnancies Del. Date Name GA/Weeks Outcome Route Bth Weight Infant Gen Labor Lgth Anesthesia Del Locatn Provider FOB Unknown Alexandra Unknown Kei Unknown Lino Unknown Camilo Unknown Ruby ROS Const Constitutional: Reports system reviewed and no additional complaints, except as documented Eyes Eyes: Reports system reviewed and no additional complaints, except as documented GI GI: Denies abdominal pain or change in bowel habits : Reports as per HPI Exam Const General: cooperative, no acute distress, well developed and well groomed Nutritional Appearance: well nourished Orientation: oriented x3 External Female Exam: normal external appearance Speculum Exam - Vagina: vagina atrophic Speculum Exam - Cervix: closed (pale) Bimanual Exam- Vagina Uterus: normal bimanual exam and uterine size normal Bimanual Exam- Adnexa, other: normal adnexae, no masses, non-tender, rectocele and cystocele (stable) Pelvic Support: cystocele (stable) moderate and rectocele moderate Other: Prolapse noted at introitus and does not proceed through introitus with valsalva. Coding Level of Care Code Off vis,est,level 3 Diagnoses Acute vaginitis N76.0 Chronicity: acute Cystocele and rectocele with incomplete uterovaginal prolapse N81.2 Assessment and Plan Assessment and Plan (1) Vaginitis: Status: Acute Qualifiers: Chronicity: acute Qualified Code(s): N76.0 - Acute vaginitis (2) Cystocele and rectocele with incomplete uterovaginal prolapse: Status: Acute Comment: moderate. Estradiol cream. Avoid constipation, heavy lifting. Call if wants pessary vs surgery Plan Shankar Bv and comp vaginal culture-call results Continue estradiol cream 3 nights a week Coconut oil and cortaid cream prn 02/25/24 1417 Date (more content not included)... Normal [facility] Field Foreman Office Visit Reporton 01-19-2024 Field Foreman Office Visit Report [facility] [address], [address] [place] [address] OFFICE VISIT Date of Service: 01/19/24 MR#: [id number] Acct: [id number] Name: ELZBIETA JENNINGS Rep #: [id number] 2 : 1965 Provider: MISSY munroe Age/Sex: 58/F Location: [facility] [place] Status: Signed Intake Vital Signs 12/31/23 08:09 01/19/24 10:57 01/19/24 11:03 Height 5 ft 4 in 5 ft 4 in 5 ft 4 in Weight: 128 lb BMI 21.9 BP 118/82 H Intake Visit Reasons: pessary Chief Complaint: Pessary check Skin Care Instructor Required: No Is patient in pain?: No Allergies Sulfa (Sulfonamide Antibiotics) Allergy (Verified 01/19/24 10:56) Rash amoxicillin (From Augmentin) Adverse Reaction (Verified 01/19/24 10:56) Vomiting clavulanic acid (From Augmentin) Adverse Reaction (Verified 01/19/24 10:56) Vomiting Medications ???Medication ???Instructions ???Recorded ???Confirmed ???Type fexofenadine 180 mg tablet 180 mg PO Q24H 11/19/17 01/19/24 History (Iraida Allergy) azelastine 137 mcg (0.1 %) nasal 2 spray intranasal BID 12/23/21 01/19/24 History spray triamcinolone acetonide 55 mcg 2 spray intranasal DAILY 12/23/21 01/19/24 History nasal spray aerosol (Nasacort) dietary supplement cap PO 12/26/22 01/19/24 History herbal drugs cap PO 12/31/23 01/19/24 History estradiol 0.01% (0.1 mg/gram) See Rx Instructions vaginal 01/19/24 01/19/24 Rx vaginal cream .COMPLEX #42.5 grams Is last menstrual period known: No Post menopausal: Yes Patient : No : No [facility] Medical History Asthma Fibrocystic breast disease Surgical History History of carpal tunnel surgery of right wrist History of wisdom tooth extraction, class II edentulism H/O tubal ligation History of cholecystectomy Family History Mother Thyroid disorder Diabetes Father Hypertension Cancer squamous cell cancer Sister Breast cancer Social History Smoking Status: Never smoker alcohol intake: never substance use type: does not use caffeine: No what type of physical activity do you participate in: aerobics frequency: 5-6 times per week seatbelt use: always do you feel safe at home: Yes additional social history: -Tomás HPI pessary Details: ELZBIETA JENNINGS is a 58 year old who presents for pessary fitting. She saw Joaquin Alves and told her she feels like she has a tampon stuck. She expresses to me that it is not all the time, actually ok today. She is not eager for pessary or surgery. She denies pain, bleeding. She denies difficulty with bowel or bladder habits. She really only notices it when running. History 6 Elective abortions Hx Para 5 Spontaneous abortions Hx # Term Pregnancies Ectopic pregnancies Hx # Pregnancies Multiple births # of living children Past Pregnancies Del. Date Name GA/Weeks Outcome Route Bth Weight Infant Gen [facility] Alexandra Unknown Kei Unknown Lino Unknown Camilo Unknown Ruby ROS Const Constitutional: Reports system reviewed and no additional complaints, except as documented Eyes Eyes: Reports system reviewed and no additional complaints, except as documented GI GI: Denies abdominal pain or change in bowel habits : Reports as per HPI Exam Const General: cooperative, no acute distress, well developed and well groomed Nutritional Appearance: well nourished Orientation: oriented x3 External Female Exam: normal external appearance Speculum Exam - Vagina: vagina atrophic Speculum Exam - Cervix: closed (pale) Bimanual Exam- Vagina Uterus: normal bimanual exam and uterine size normal Bimanual Exam- Adnexa, other: normal adnexae, no masses, non-tender, rectocele and cystocele Pelvic Support: cystocele moderate and rectocele moderate Other: Prolapse noted at introitus and does not proceed through introitus with valsalva. Coding Level of Care Code Off vis,est,level 3 Diagnoses Cystocele and rectocele with incomplete uterovaginal prolapse N81.2 Assessment and Plan Assessment and Plan (1) Cystocele and rectocele with incomplete uterovaginal prolapse: Status: Acute Comment: moderate. Estradiol cream. Avoid constipation, heavy lifting. Call if wants pessary vs surgery Medications: New estradiol 0.01%(0.1mg/gram) small amount as directed vaginal every other day X 4 weeks then twice a week; 42.5 grams 2RF Plan Rx estradiol cream. Kegels. Showed pessary and discussed use and care. Reviewed combination surgery procedure with Ofe Marina (more content not included)... 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) Chief Complaint: prolapse feels like it's getting worse Skin Care Instructor Required: No Is patient in pain?: No Allergies Sulfa (Sulfonamide Antibiotics) Allergy (Verified 12/31/23 08:07) Rash amoxicillin (From Augmentin) Adverse Reaction (Verified 12/31/23 08:07) Vomiting clavulanic acid (From Augmentin) Adverse Reaction (Verified 12/31/23 08:07) Vomiting Medications ???Medication ???Instructions ???Recorded ???Confirmed ???Type fexofenadine 180 mg tablet 180 mg PO Q24H 11/19/17 12/31/23 History (Iraida Allergy) azelastine 137 mcg (0.1 %) nasal 2 spray intranasal BID 12/23/21 12/31/23 History spray triamcinolone acetonide 55 mcg 2 spray intranasal DAILY 12/23/21 12/31/23 History nasal spray aerosol (Nasacort) dietary supplement cap PO 12/26/22 12/31/23 History herbal drugs cap PO 12/31/23 12/31/23 History PFSH Medical History Asthma Fibrocystic breast disease Surgical History History of carpal tunnel surgery of right wrist History of wisdom tooth extraction, class II edentulism H/O tubal ligation History of cholecystectomy Family History Mother Thyroid disorder Diabetes Father Hypertension Cancer squamous cell cancer Sister Breast cancer Social History Smoking Status: Never smoker alcohol intake: never substance use type: does not use caffeine: No what type of physical activity do you participate in: aerobics frequency: 5-6 times per week seatbelt use: always do you feel safe at home: Yes additional social history: -Tomás History 6 Elective abortions Hx Para 5 Spontaneous abortions Hx # Term Pregnancies Ectopic pregnancies Hx # Pregnancies Multiple births # of living children Past Pregnancies Del. Date Name GA/Weeks Outcome Route Bth Weight Infant Gen [facility] F[facility] Unknown Alexandra Unknown Kei Unknown Lino Unknown Camilo Unknown Ruby HPI Encounter for routine gynecological examination Details: ELZBIETA JENNINGS is a 58 year old who presents for annual exam. Concerns her cystocele is worsening. Did PFPT, but now feels like she has a tampon in her vagina at times. Pessary and surgical options have been discussed with her previously and is wanting to try a pessary for now. Last PAP:2022 History of abnormal PAP: no Last mammogram: 12/03/23 History of abnormal mammogram: no Colon cancer screening: done Other preventative health care screenings: PCP Female Reproductive History Questions: sexually active: Yes, dyspareunia: No and PCB: No ROS Const Constitutional: Reports system reviewed and no additional complaints, except as documented Cardio Card: Reports system reviewed and no additional complaints, except as documented Resp Resp: Reports system reviewed and no additional complaints, except as documented GI GI: Reports system reviewed and no additional complaints, except as documented : Reports system reviewed and no additional complaints, except as documented; Denies difficulty voiding, dysuria or urinary frequency Skin Skin/Breast: Reports system reviewed and no additional complaints, except as documented Neuro Neuro: Reports system reviewed and no additional complaints, except as documented Psych Psych: Reports system reviewed and no additional complaints, except as documented; Denies anhedonia, anxiety or depression Exam Const General: cooperative, healthy appearing, comfortable and no acute distress Orientation: alert, awake and oriented x3 Neck Neck: normal visual inspection and full ROM Thyroid: thyroid normal Chest Breast inspection: normal inspection of the breasts and normal inspection of the axillae Breast palpation: normal palpation of the breasts and normal palpation of the axillae Resp Effort Inspection: normal respiratory effort, able to speak in complete sentences and symmetric chest movement GI Inspection: normal to inspection Palpation: soft Rectal Exam: visual inspection normal External Female Exam: normal external appearance and normal appearance of the (more content not included)... Normal [facility] Absolute lymphocyte countOrd ered By: Vega HancockMarco A on 03-06-2023 Lymphocytes Auto (Unsp spec) [#/Vol] 1.50 10*3/uL 0.83-4.51 [facility] Basophil percentageOrdered B y: Vega HancockMarco A on 03-06-2023 Basophils/100 WBC (Bld) 1.3 % 0-1 [facility] Bilirubin [Mass/Vol] 0.60 mg/dL 0.20-1.00 [facility] Comment on above: For patients on eltr ombopag therapy, use of Dimension [place] TBIL is not recommended. Chloride [Moles/Vol] 106 mmol/L 98-107 [facility] Cholesterol [Mass/Vol] 237 mg/dL <200 [facility] Comment on above: <200 mg/dL Desirable 200-240 mg/dL Borderline >240 mg/dL High Risk Eosinophils/100 WBC (Bld) 3.8 % 0-5 [facility] Glucose [Mass/Vol] 107 mg/dL 74-106 [facility] Comment on above: Fasting Glucose resu lt from 100 to 125 mg/dL suggests IMPAIRED HOMEOSTASIS per A.D.A. criteria. Neutrophils (Bld) [#/Vol] 3.8 10*3/uL 2.0-7.7 [facility] Neutrophils/100 WBC (Bld) 63.1 % 47-70 [facility] Potassium [Moles/Vol] 3.8 mmol/L 3.5-5.1 [facility] Protein [Mass/Vol] 7.5 g/dL 6.4-8.2 [facility] Sodium [Moles/Vol] 140 mmol/L 136-145 [facility] Triglyceride [Mass/Vol] 104 mg/dL <199 [facility] Comment on above: The drugs N-Acetylcy steine and Metamizole may falsely depress this assay.Serum Triglycerides Reference Interval Normal <150 mg/dL Borderline high 150 - 199 mg/dL High 200 - 499 mg/dL Very High > or = 500 mg/dL WBC (Bld) [#/Vol] 6.1 10*3/uL 4.4-11.0 [facility] Blood erythrocytes count (nu mber/volume)Ordered By: Vega Strickland on 03-06-2023 RBC (Bld) [#/Vol] 5.34 10*6/uL 4.2-5.4 [facility] Blood hemoglobin measurement (mass/volume)Ordered By: Vega Strickland on 03-06-2023 Hemoglobin (Bld) [Mass/Vol] 15.9 g/dL 12.0-15.0 [facility] Blood lymphocytes/100 leukoc ytesOrdered By: Vega Strickland on 03-06-2023 Lymphocytes/100 WBC (Bld) 24.6 % 19-41 [facility] Blood monocytes/100 leukocyt esOrdered By: Vega Strickland on 03-06-2023 Monocytes/100 WBC (Bld) 6.9 % 0-10 [facility] Blood platelet mean volumeOr dered By: Vega Strickland on 03-06-2023 Platelet mean volume (Bld) [Entitic vol] 10.3 fL 6.2-12.0 [facility] Determination of erythrocyte mean corpuscular volume (MCV)Ordered By: Vega Strickland on 03-06-2023 MCV (RBC) [Entitic vol] 90.1 fL 81-99 [facility] Hematocrit Auto (Bld) [Volum e fraction]Ordered By: Vega Strickland on 03-06-2023 Hematocrit (Bld) [Volume fraction] 48.1 % 37-47 [facility] Laboratory - Chemistry and C hemistry - challengeOrdered By: Vega Strickland on 03-06-2023 ALP [Catalytic activity/Vol] 105 U/L 45-117 [facility] ALT [Catalytic activity/Vol] 32 U/L 13-56 [facility] CO2 [Moles/Vol] 31.0 mmol/L 21.0-32.0 [facility] Globulin (S) [Mass/Vol] 3.6 g/dL 2.2-4.2 [facility] Urea nitrogen/Creatinine [Mass ratio] 22.6 mg/mg 10-20 [facility] Laboratory - Hematology and Cell countsOrdered By: Vega Strickland on 03-06-2023 Erythrocyte distribution width (RBC) [Entitic vol] 40.3 fL 35.1-43.9 [facility] Erythrocyte distribution width (RBC) [Ratio] 12.3 % 11.6-14.6 [facility] Immature granulocytes/100 WBC (Bld) 0.300 % 0.0-0.9 [facility] Comment on above: IG% - Immature Granu locytes (promyelocytes, myelocytes and metamyelocytes) > 1% indicates that a LEFT SHIFT is Present. MCH (RBC) [Entitic mass] 29.8 pg 27.0-32.0 [facility] Nucleated RBC/100 WBC (Bld) [Ratio] 0 % 0-5 [facility] MCHC Auto (RBC) [Mass/Vol]Or dered By: Vega Strickland on 03-06-2023 MCHC (RBC) [Mass/Vol] 33.1 g/dL 32-36 [facility] No Panel InformationOrdered By: Vega Strickland on 03-06-2023 Estimated GFR (MDRD) Amer 128 mL/min >60 [facility] Comment on above: GFR Calc Estimated GFR (MDRD) Non-Af Amer 106 mL/min >60 [facility] Comment on above: Non- GFR Calc Vitamin D 25-Hydroxy 42.7 ng/mL [facility] Comment on above: Vitamin D 25(OH) Sta tus Range Deficiency <20 ng/mL (50nmol/L) Insufficiency 20 - 30 ng/mL (50 - 75 nmol/L) Sufficiency 30 - 100 ng/mL (75 - 250 nmol/L) Toxicity >100 ng/mL (>250 nmol/L) Platelets bldOrdered By: Chasidy Strickland on 03-06-2023 Platelets (Bld) [#/Vol] 212 10*3/uL 150-450 [facility] Serum or plasma albumin tomer urement (mass/volume)Ordered By: Vega Strickland on 03-06-2023 Albumin [Mass/Vol] 3.9 g/dL 3.2-5.0 [facility] Serum or plasma albumin/glob ulin mass ratioOrdered By: Vega Strickland on 03-06-2023 Albumin/Globulin [Mass ratio] 1.1 {ratio} 0.9-2.4 [facility] Serum or plasma calcium tomer urement (mass/volume)Ordered By: Vega Strickland on 03-06-2023 Calcium [Mass/Vol] 9.1 mg/dL 8.5-10.1 [facility] Serum or plasma cholesterol in HDL measurement (mass/volume)Ordered By: Vega Strickland on 03-06-2023 Cholesterol in HDL [Mass/Vol] 57 mg/dL >40 [facility] Comment on above: The drugs N-Acetylcy steine and Metamizole may falsely depress this assay. Reference Range HDL <40 mg/dL Low HDL Cholesterol HDL >or= 60 mg/dL High HDL Cholesterol Serum or plasma cholesterol in VLDL measurement (mass/volume)Ordered By: Vega Strickland on 03-06-2023 Cholesterol in VLDL [Mass/Vol] 21 mg/dL 5-40 [facility] Serum or plasma creatinine m easurement (mass/volume)Ordered By: Vega Strickland on 03-06-2023 Creatinine [Mass/Vol] 0.62 mg/dL 0.55-1.02 [facility] Comment on above: The validity of the calculated GFR & GFRAA in patients over 70 years has not been determined. Clinical correlation is essential. Serum or plasma low density lipoprotein (LDL) cholesterol measurement (mass/volume)Ordered By: Vega Strickland on 03-06-2023 Cholesterol in LDL [Mass/Vol] 159 mg/dL 0-130 [facility] Serum or plasma urea nitroge n measurement (mass/volume)Ordered By: Vega Strickland on 03-06-2023 Urea nitrogen [Mass/Vol] 14 mg/dL 7-18 [facility] Thin prep Papanicolaou smear with manual screeningOrdered By: Vega Strickland on 03-06-2023 Thin prep Papanicolaou smear with manual screening 18 U/L 15-37 [facility] Thin prep Papanicolaou smear with manual screening 3 5-15 [facility] Cervical or vagninal specime n microscopic examination by cytology stain (reported asOrdered By: Khadijah Hill on 12-26-2022 Cytology report Cyto stain Doc (Cvx/Vag) Comment . [facility] Comment on above: The Pap smear is a s creening test designed to aid in thedetection of premalignant and malignant conditions of theuterine cervix. It is not a diagnostic procedure andshould not be used as the sole means of detecting cervicalcancer. Both false-positive and false-negative reports dooccur. Detection in cervical specim en of any of human papilloma virus (HPV) 16, 18, 31, 33,Ordered By: Khadijah Hill on 12-26-2022 HPV 16+18+31+33+35+39+45+ 51+52+56+58+59+66+68 DNA Probe+sig amp Ql (Cvx) Negative Negative [facility] Comment on above: This nucleic acid am plification test detects fourteen high- risk HPV types (16,18,31,33,35,39,45,51,52,56,58,59,66,68)without differentiation. Laboratory - CytologyOrdered By: Khadijah Hill on 12-26-2022 Shaker Screen Operator Cyto stain Nom (Cvx/Vag) [ID] Comment . [facility] Comment on above: Davonte De La Paz totechnologist (ASCP) Laboratory - Miscellaneous t estsOrdered By: Khadijah Hill on 12-26-2022 Service comment (Unsp spec) [Interp] Comment . [facility] Comment on above: This liquid based Th inPrep(R) pap test was screened withthe use of an image guided system. Service comment (Unsp spec) [Interp] . . [facility] Liquid-based cerv Pap + CT/G C by GERALD w reflex to high-risk HPV for ASCUSOrdered By: Khadijah Hill on 12-26-2022 Cytology report Cyto stain.thin prep Doc (Cvx/Vag) Comment . [facility] Comment on above: Criteria not met, HP V Genotype not performed.Performed at: [facility] [id number] [place], [place] [id number] Director: Galo Chi MD, Phone: [phone] at: [facility] [address] [id number] Director: Cheryl Mesa MD, Phone: [phone] at: =[facility] [id number] Director: Cheryl Mesa MD, Phone: [phone] No Panel InformationOrdered By: Khadijah Hill on 12-26-2022 Pathology report final diagnosis Narrative Comment . [facility] Comment on above: NEGATIVE FOR INTRAEP ITHELIAL LESION OR MALIGNANCY.CELLULAR CHANGES ASSOCIATED WITH ATROPHY ARE PRESENT. Basophil percentageon 2021 Cholesterol [Mass/Vol] 238 mg/dL <200 [facility] Work Phone: Comment on above: <200 mg/dL Desirable 200-240 mg/dL Borderline >240 mg/dL High Risk Triglyceride [Mass/Vol] 101 mg/dL <199 [facility] Work Phone: Comment on above: The drugs N-Acetylcy steine and Metamizole may falsely depress this assay.Serum Triglycerides Reference Interval Normal <150 mg/dL Borderline high 150 - 199 mg/dL High 200 - 499 mg/dL Very High > or = 500 mg/dL Serum or plasma cholesterol in HDL measurement (mass/volume)on 03-14-2022 Cholesterol in HDL [Mass/Vol] 53 mg/dL >40 [facility] Work Phone: Comment on above: The drugs N-Acetylcy steine and Metamizole may falsely depress this assay. Reference Range HDL <40 mg/dL Low HDL Cholesterol HDL >or= 60 mg/dL High HDL Cholesterol Serum or plasma cholesterol in VLDL measurement (mass/volume)on 03-14-2022 Cholesterol in VLDL [Mass/Vol] 20 mg/dL 5-40 [facility] Work Phone: Serum or plasma low density lipoprotein (LDL) cholesterol measurement (mass/volume)on 03-14-2022 Cholesterol in LDL [Mass/Vol] 165 mg/dL 0-130 [facility] Work Phone: Office Visit: Annualon 11-17 Documentation of current medications (procedure) Done Invalid Interpretation Code [facility] Fall risk assessment No Invalid Interpretation Code [facility] Protein mass conc Done [facility] Tobacco smoking status [facility] Never Invalid Interpretation Code [facility] Tobacco smoking status [facility] Never smoker [facility] Tobacco use CP Never smoker Invalid Interpretation Code [facility] CNOVon 10-31-2016 CNOV Office Visit (FAMPWS) ELZBIETA MANCUSO ([id number]) 1965 FDate Time Provider Department10/31/16 1:20 PM RINKU STANLEY III During your visit today, we recorded the following information about you: Pulse Respiration Blood pressure Weight 76/minute 14/minute 120/82 57.2 kg Height Last Period 1.626 m 10/21/16Frsebastien Stanley III MD 10/31/2016 2:52 PM SignedSUBJECTIVE: This is a 50 year old female that is here today for routine exam1. lab review2. Some red skin lesions noted on the anterior thighs bilaterally.No chest pain, angina, dyspnea on exertion, cough, shortness of breath,abdominal pain, change in bowel movements, rectal bleeding, change inurination, knee pain. She does not get a lot of regular exercise though shedoes try to stay active. She is concerned about her weight to the point whereshe wants to lose weight. 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 She was cautioned not to lose weight and that she is atthe lower end of the normal range.PAST MEDICAL HISTORYDiagnosis Date- Abnormal glandular Papanicolaou smear of cervix 10/12/2006 Abn. Pap smear (cervix), HPV-Neg- Allergic rhinitis, cause unspecified 02/06/2005- GERD (gastroesophageal reflux disease)- Headache(784.0)- Vaginitis and vulvovaginitis, unspecified Vaginitis and recurrentCurrent Outpatient Prescriptions on File Prior to Visit:fexofenadine (IRAIDA) 180 mg tablet Take 1 tablet by mouth once daily.triamcinolone acetonide (NASACORT AQ) 55 mcg nasal inhaler Use 2 Sprays in eachnostril once daily.azelastine hcl(ASTELIN 137 MCG NASAL SPRAY AEROSOL) 2 sprays to each nostriltwice daily as neededmultivitamins(GIOVANNY LY MULTIVITAMIN TAB) Take one(1) tablet daily.No current facility-administered medications on file prior to visit.FAMILY HISTORY Hypertension Father Alzheimer's Disease Paternal Grandmother Heart Paternal Grandfather Thyroid Mother Thyroid Maternal Grandmother Cancer Maternal Grandfather Comment: PROSTATE Breast Cancer Other Comment: GREAT AUNT Diabetes Mother None Brother Breast Cancer Sister 45 None Sister None Sister None Sister None SisterSocial HistorySubstance Use Topics- Smoking status: Never Smoker- Smokeless tobacco: Never Used- Alcohol use No BP 120/82 (BP Site: Left Arm, BP Position: Sitting, BP Cuff Size: RegularAdult) Pulse 76 Resp 14 Ht 162.6 cm (5' 4ANDquot;) Wt 57.2 kg (126 lb) LMP 10/21/2016 BMI 21.63 kg/m2.OBJECTIVE:APPEARA NCE Well appearing, alert, in no acute distress, well-hydrated, wellnourished., ThinNECK Supple, no adenopathy; thyroid symmetric, normal size, no bruitsHEART RRR with normal S1 and S2, no murmurs, no gallops, no JVD appreciatedLUNG clear to auscultationABDOMEN soft, non-tender, non-distended, without organomegaly or palpablemasses, no tenderness to palpationEXTREMITIES Extremities normal, No deformities, No skin discoloration, Noedema, Normal pulses bilaterally. and knees are normalSKIN red capillary hemangiomas on the right anterior thighLabResults for ELZBIETA JENNINGS ( ) as of 10/31/2016 13:32 Ref. Range 10/20/2016 07:37Sodium Latest Ref Range: 136 - 144 mmol/L 138Potassium Latest Ref Range: 3.7 - 5.1 mmol/L 3.9Chloride Latest Ref Range: 97 - 105 mmol/L 103CO2 Latest Ref Range: 22 - 30 mmol/L 20 (L)BUN Latest Ref Range: 7 - 21 mg/dL 10Creatinine Latest Ref Range: 0.58 - 0.96 mg/dL 0.61Glucose Latest Ref Range: 74 - 99 mg/dL 85Protein, Total Latest Ref Range: 6.3 - 8.0 g/dL 6.8Calcium Latest Ref Range: 8.5 - 10.2 mg/dL 8.7Albumin Latest Ref Range: 3.9 - 4.9 g/dL 4.1Bilirubin, Total Latest Ref Range: 0.2 - 1.3 mg/dL 0.7Alkaline Phosphatase Latest Ref Range: 32 - 117 U/L 52ALT Latest Ref Range: 7 - 38 U/L 12AST Latest Ref Range: 13 - 35 U/L 20Anion Gap Latest Ref Range: 9 - 18 mmol/L 15eGFR- Unknown ANDgt;60eGFR-All Other Races Latest Units: . ANDgt;60Cholesterol Latest Ref Range: 100 - 199 mg/dL 187Triglyceride Latest Ref Range: 30 - 149 mg/dL 80Fasting Time Latest Units: hrs 12HDL Cholesterol Latest Ref Range: ANDgt;55 mg/dL 46 (L)LDL Cholesterol Latest Ref Range: 60 - 129 mg/dL 125VLDL Cholesterol Latest Ref Range: 6 - 40 mg/dL 16TC:HDL Ratio Latest Ref Range: 1.00 - 5.00 4.07LDL:HDL Ratio Latest Ref Range: 0.50 - 3.55 2.72Non HDL Cholesterol Latest Ref Range: 90 - 159 mg/dL 141ASSESSMENT:normal examCapillary hemangiomasHistory of fibrocystic breast diseasePLAN:healthy diet and regular exercise ---150 min/wkfollow up with senior information systems architect for grinder setup operator exam, including breast exam--per patientrequestFrank Maco Stanley III MDFrank Maco Stanley III MD 10/31/2016 1:48 PM SignedPLAN:healthy diet and regular exercise ---150 min/wkfollow up with senior information systems architect for grinder setup operator exam, including breast examFrank Maco Stanley III MDReferring Provider: RINKU STANLEY III [[id number]]Allergies As of Date: 10/31/2016 Noted Allergy ReactionAUGMENTIN (AMOXICILLIN-POT CLAVUL*10/06/2005 8 - GI UpsetEnvironmental [Other] 10/07/2005 14 - Other: See Comments Comments: Molds,dust,trees,grass, nasoal congestion, sneezingSULFA (SULFONAMIDE ANTIBIOTICS) 10/06/2005 2 - RashDate Reviewed: 10/31/2016Reviewed by: Vandana Pineda Ma - Fully AssessedReason for Visit: Physical [83]Primary Visit Diagnosis:Fibrocystic breast, right [N60.11] Other Visit Diagnosis:Encounter for routine adult health examination without abnormal findings [Z00.00]Prescriptions as of 10/31/2016 Sig: FEXOFENADINE 180 MG TABLET Take 1 tablet by mouth once d* TRIAMCINOLONE ACETONIDE 55 MC* Use 2 Sprays in each nostril * ASTELIN 137 MCG (0.1 %) NASAL* 2 sprays to each nostril twic* DAILY MULTIVITAMIN TABLET Take one(1) tablet daily.Problem List As Of Date 10/31/2016 Noted Resolved ALLERGIC RHINITIS NOS [J30.9] INVALID FOR* PREMENSTRUAL TENSION SYNDROMES [N94.3] INVALID FOR* Fibrocystic breast [N60.19] INVALID FOR* Other instructions from your clinician: PLAN: healthy diet and regular exercise ---150 min/wk follow up with senior information systems architect for grinder setup operator exam, including breast exam Rinku Stanley III MDEncounter Number: [id number] Status:Closed by RINKU STANLEY III, MD on 10/31/16 Normal [facility] PROGRESSon 10-31-2016 PROGRESS HNO ID: [id number]: Rinku Stanley IIIService: (none)Author Type: PhysicianType: Progress NotesFiled: 10/31/2016 2:52 PMNote Text:SUBJECTIVE: This is a 50 year old female that is here today for routineexam1. lab review2. Some red skin lesions noted on the anterior thighs bilaterally.No chest pain, angina, dyspnea on exertion, cough, shortness of breath,abdominal pain, change in bowel movements, rectal bleeding, change inurination, knee pain. She does not get a lot of regular exercise thoughshe does try to stay active. She is concerned about her weight to thepoint where she wants to lose weight. 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 She was cautioned not to loseweight and that she is at the lower end of the normal range.PAST MEDICAL HISTORYDiagnosis Date- Abnormal glandular Papanicolaou smear of cervix 10/12/2006 Abn. Pap smear (cervix), HPV-Neg- Allergic rhinitis, cause unspecified 02/06/2005- GERD (gastroesophageal reflux disease)- Headache(784.0)- Vaginitis and vulvovaginitis, unspecified Vaginitis and recurrentCurrent Outpatient Prescriptions on File Prior to Visit:fexofenadine (IRAIDA) 180 mg tablet Take 1 tablet by mouth once daily.triamcinolone acetonide (NASACORT AQ) 55 mcg nasal inhaler Use 2 Sprays ineach nostril once daily.azelastine hcl(ASTELIN 137 MCG NASAL SPRAY AEROSOL) 2 sprays to eachnostril twice daily as neededmultivitamins(GIOVANNY LY MULTIVITAMIN TAB) Take one(1) tablet daily.No current facility-administered medications on file prior to visit.FAMILY HISTORY Hypertension Father Alzheimer's Disease Paternal Grandmother Heart Paternal Grandfather Thyroid Mother Thyroid Maternal Grandmother Cancer Maternal Grandfather Comment: PROSTATE Breast Cancer Other Comment: GREAT AUNT Diabetes Mother None Brother Breast Cancer Sister 45 None Sister None Sister None Sister None SisterSocial HistorySubstance Use Topics- Smoking status: Never Smoker- Smokeless tobacco: Never Used- Alcohol use No BP 120/82 (BP Site: Left Arm, BP Position: Sitting, BP Cuff Size: RegularAdult) Pulse 76 Resp 14 Ht 162.6 cm (5' 4) Wt 57.2 kg (126 lb) LMP 10/21/2016 BMI 21.63 kg/m2.OBJECTIVE:APPEARA NCE Well appearing, alert, in no acute distress, well-hydrated,well nourished., ThinNECK Supple, no adenopathy; thyroid symmetric, normal size, no bruitsHEART RRR with normal S1 and S2, no murmurs, no gallops, no JVDappreciatedLUNG clear to auscultationABDOMEN soft, non-tender, non-distended, without organomegaly or palpablemasses, no tenderness to palpationEXTREMITIES Extremities normal, No deformities, No skin discoloration, Noedema, Normal pulses bilaterally. and knees are normalSKIN red capillary hemangiomas on the right anterior thighLabResults for ELZBIETA JENNINGS ( ) as of 10/31/2016 13:32 Ref. Range 10/20/2016 07:37Sodium Latest Ref Range: 136 - 144 mmol/L 138Potassium Latest Ref Range: 3.7 - 5.1 mmol/L 3.9Chloride Latest Ref Range: 97 - 105 mmol/L 103CO2 Latest Ref Range: 22 - 30 mmol/L 20 (L)BUN Latest Ref Range: 7 - 21 mg/dL 10Creatinine Latest Ref Range: 0.58 - 0.96 mg/dL 0.61Glucose Latest Ref Range: 74 - 99 mg/dL 85Protein, Total Latest Ref Range: 6.3 - 8.0 g/dL 6.8Calcium Latest Ref Range: 8.5 - 10.2 mg/dL 8.7Albumin Latest Ref Range: 3.9 - 4.9 g/dL 4.1Bilirubin, Total Latest Ref Range: 0.2 - 1.3 mg/dL 0.7Alkaline Phosphatase Latest Ref Range: 32 - 117 U/L 52ALT Latest Ref Range: 7 - 38 U/L 12AST Latest Ref Range: 13 - 35 U/L 20Anion Gap Latest Ref Range: 9 - 18 mmol/L 15eGFR- Unknown >60eGFR-All Other Races Latest Units: . >60Cholesterol Latest Ref Range: 100 - 199 mg/dL 187Triglyceride Latest Ref Range: 30 - 149 mg/dL 80Fasting Time Latest Units: hrs 12HDL Cholesterol Latest Ref Range: >55 mg/dL 46 (L)LDL Cholesterol Latest Ref Range: 60 - 129 mg/dL 125VLDL Cholesterol Latest Ref Range: 6 - 40 mg/dL 16TC:HDL Ratio Latest Ref Range: 1.00 - 5.00 4.07LDL:HDL Ratio Latest Ref Range: 0.50 - 3.55 2.72Non HDL Cholesterol Latest Ref Range: 90 - 159 mg/dL 141ASSESSMENT:normal examCapillary hemangiomasHistory of fibrocystic breast diseasePLAN:healthy diet and regular exercise ---150 min/wkfollow up with senior information systems architect for 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 setup operator exam, including breast exam--perpatient requestFrank Maco Stanley III MD Normal [facility] Office Visit: Annualon 10-20 MG Breast screening Normal Bilateral Invalid Interpretation Code [facility] [place] Office Visit: Annualon 11-04 General categories Cyto stain Interp (Cervical or vaginal smear or scraping) Normal Invalid Interpretation Code [facility] Vital Signs Date Time Vital Sign Value Performing Clinician Soraida moreno 12-26-2022 09:14-0400 Body height 162.[address] Vega Strickland Work Phone: [facility] 12-26-2022 09:09-0400 Body mass index (BMI) [Ratio] 23.5 kg/m2 Dr. Vega Strickland Work Phone: [facility] 12-26-2022 09:09-0400 Body weight 62.[address] Vega Strickland Work Phone: [facility] 12-26-2022 09:09-0400 Diastolic blood pressure 88 mm[Hg] Dr. Vega Strickland Work Phone: [facility] 12-26-2022 09:09-0400 Systolic blood pressure 128 mm[Hg] Dr. Vega Strickland Work Phone: [facility] 12-23-2021 10:16-0400 Body height 162.[address] Vega Strickland Work Phone: [facility] Work Phone: 12-23-2021 10:16-0400 Body mass index (BMI) [Ratio] 23.8 kg/m2 Dr. Vega Strickland Work Phone: [facility] Work Phone: 12-23-2021 10:16-0400 Body weight 62.[address] Vega Strickland Work Phone: [facility] Work Phone: 12-23-2021 10:16-0400 Diastolic blood pressure 90 mm[Hg] Dr. Vega Strickland Work Phone: [facility] Work Phone: 12-23-2021 10:16-0400 Systolic blood pressure 130 mm[Hg] Dr. Vega Strickland Work Phone: [facility] Work Phone: 11-17-2016 08:06-0400 BMI (Body Mass Index) 22.49 kg/m2 Khadijah Hill MD [facility] 11-17-2016 08:06-0400 BP Diastolic 81 mm[Hg] Khadijah Hill MD [facility] 11-17-2016 08:06-0400 BP Systolic 117 mm[Hg] Khadijah Hill MD [facility] 11-17-2016 08:06-0400 Height 161.29 cm Khadijah Hlil MD [facility] [place] 11-17-2016 08:060400 Pulse (Heart Rate) 80 /min Khadijah Hill MD [facility] [place] 11-17-2016 08:060400 Respiratory Rate 16 /min Khadijah Hill MD [facility] 11-17-2016 08:06-0400 Weight 58.51 kg Khadijah Hill MD [facility] [place] Encounters Encounter Date Encounter Type Care Provider Facility Start: 12-05-2024 ambulatory [facility] Facility: [facility] Start: 08-15-2024 Encounter for genera l adult medical examination without abnormal findings [facility] Start: 03-03-2024 End: 03-03-2024 ambulatory [facility] Facility:[facility] Start: 02-25-2024 End: 02-25-[address] [place] [place]: 02-25-2024 End: 02-25-2024 ambulatory [facility] Facility:[facility] Start: 01-19-2024 End: 01-19-[address] [place] [place] Start: 12-31-2023 Encounter for gynecological examination (general) (routine) without abnormal findings Justina Alves [facility] Start: 12-31-2023 End: 12-31-2023 ambulatory [facility] [place] [place] Start: 05-01-2023 End: 05-01-2023 ambulatory [facility] Work Phone: Start: 05-01-2023 End: 05-01-2023 Discharged Recurring [facility]Occ[facility] Work Phone: Start: 03-06-2023 End: 03-06-[address] Vega Strickland Work Phone: [facility] Work Phone: Start: 03-06-2023 End: 03-06-[address] Vega Strickland Work Phone: [facility]Labor[facility] Work Phone: Start: 12-26-2022 End: 12-26-[address] Vega Strickland Work Phone: [facility] Work Phone: Start: 12-26-2022 End: 12-26-[address] Vega Strickland Work Phone: [facility]Laboratory, Specimen Work Phone: Start: 12-26-2022 End: 12-26-[address] Vega Strickland Work Phone: [facility] [place] Work Phone: Start: 12-02-2022 End: 12-02-2022 Discharged Recurring [facility] Work Phone: Start: 12-01-2022 End: 12-01-2022 ambulatory [facility] Work Phone: Start: 12-01-2022 End: 12-01-2022 Patient encounter procedure [facility]Outpatient Breast Imaging Work Phone: Start: 03-14-2022 End: 03-14-[address] Vega Strickland Work Phone: [facility] Work Phone: Start: 03-14-2022 End: 03-14-[address] Vega Strickland Work Phone: [facility]Laboratory, Jhonny Whitney [facility] Start: 12-23-2021 End: 12-23-[address] Vega Strickland Work Phone: [facility] [place] Start: 11-27-2021 End: 11-27-2021 Patient encounter procedure [facility] Breast Imaging Start: 10-31-2016 End: 10-31-2016 Ambulatory RINKU STANLEY III [facility] Procedures Date Procedure Procedure Detail Performing Clinician Start: 12-01-2022 Screening mammography Start: 11-27-2021 Screening mammography Start: 11-17-2016 End: 11-18-2016 Gynecologic examination Encounter for gynecological examination (general) (routine) with abnormal findings Khadijah Hill MD Plan of Treatment Date Care Activity Detail Author Start: 12-26-2022 Liquid based cervica l cytology screening [facility] Start: 11-19-2016 End: 11-20-2016 Transvaginal us, non-ob US Transvaginal [facility] Start: 11-19-2016 End: 11-20-2016 Us exam, pelvic, complete US Pelvis [facility] Start: 11-17-2016 End: 11-17-2016 Appointment Appointment [place] [facility] [place] Start: 11-17-2016 End: 11-17-2016 Transvaginal us, non-ob US Transvaginal [facility] Start: 11-17-2016 End: 11-17-2016 Us exam, pelvic, complete US Pelvis [facility] MG Breast - bilatera l Screening [facility] Work Phone: Path report.final Dx Spec [facility] acute hospital Payers Date Payer Category Payer Self-pay [id number] 2022 Unknown [id number] Unknown [id number] 2.16.8 [id number] Unknown [id number] 2.16.8 [id number] Unknown [id number] 2.16.8 [id number] Unknown [id number] 2.16.8 [id number] Unknown [id number] 2.16.8 [id number] Unknown [id number] 2.16.8 [id number] Social History Date Type Detail Facility Start: 12-20-2020 End: 12-26-2022 Tobacco smoking status NHIS Unknown if ever smoked [facility] Start: 1965 Sex Assigned At Female [facility] Clinical Note 12-26-2022 Note Date & Type Note Facility 12-26-2022 Note [facility] Pap Smear Specimen Adequacy December 26, 2022 11:28am Comment . Satisfactory for evaluation. Endocervical and/or squamous metaplasticcells (endocervical component) are present. Comment on above: Satisfactory for kenya luation. Endocervical and/or squamous metaplasticcells (endocervical component) are present. Evaluation note Note Date & Type Note Facility Evaluation note No assessment information availa ble [facility] Work Phone: Evaluation note Note Date & Type Note Facility Evaluation note Diagnosis Onset Date Currie-Walker grade 3 cystocele acute Currie-Walker grade 3 rectocele acute Intramural uterine fibroid c hronic Encounter for routine gyneco logical examination noneactive [facility] Work Phone: Summary Purpose Family History No Family History Records Found Relationship Condition Age at Onset Recorded Date/T marisela mother Disorder of thyroid Unknown Diabetes mellitus Unknown father Hypertension Unknown sister Malignant neoplasm of breast Unknown Relationship Condition Age at Onset Recorded Date/T marisela mother Disorder of thyroid Unknown Diabetes mellitus Unknown father Hypertension Unknown Malignant neoplasm Unknown sister Malignant neoplasm of breast Unknown Advance Directives No Advanced Directives Records Found Advance Directive Response Recorded Date/ Time Living Will Yes May 28 9:11am Power of Machine Sorter Yes May 28, 2020 9:11am Advance Directive Response Recorded Date/ Time Living Will Yes May 28 8:11am Power of Machine Sorter Yes May 28, 2020 8:11am Chief Complaint and Reason for Visit Chief Complaint SCREENING Chief Complaint 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 UCL REPAIR. PT HAS RX Chief Complaint SCREENING CTS R UPPER. UCL REPAIR. 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) PAP, AND CERVICAL POLYP Reason for Visit Currie-Walker grade 3 cystocele Currie-Walker grade 3 rectocele Intramural uterine fibroid Encounter for routine gynecological examination Chief Complaint L HAND PT HAS RX Additional Source Comments INFORMATION SOURCE (unrecogn ized section and content) DATE CREATED AUTHOR 10/28/2017 [facility] DATE CREATED AUTHOR AUTHOR'S ORGANAURY ATION 12/03/2024 [facility] Goals (unrecognized section and content) Goals may be documented in a n alternate sectionGoals may be documented in an alternate sectionGoals may be documented in an alternate sectionGoals may be documented in an alternate sectionGoals may be documented in an alternate sectionGoals may be documented in an alternate section Care Teams (unrecognized sec tion and content) Team Status: Active Member Role Status Dates Dr. Vega Strickland , DO Family Provider Active Dr. Vega Strickland , DO Primary Care Provider Active Team Status: Inactive Member Role Status Dates Dr. Vega Strickland , DO Primary Care Provider Active Dr. Khadijah Hill MD Attending Provider Active Team Status: Inactive Member Role Status Dates Dr. Vega Strickland DO Primary Care Provider Active Dr. Hiro Escobar MD Attending Provider, Referring Provider Active Team Status: Inactive Member Role Status Dates Dr. Vega Strickland DO Primary Care Provider, Referrin g Provider Active Dr. Khadijah Hill MD Attending Provider Active Team Status: Inactive Member Role Status Dates Dr. Vega Strickland , DO Primary Care Provider Active Dr. Khadijah Hill MD Attending Provider, Referr ing Provider Active Team Status: Inactive Member Role Status Dates Dr. Vega Strickland , DO Primary Care Prov ider, Attending Provider, Referring Provider Active FOR RECORDS PERTAINING TO PATIENTS WHO ARE OR HAVE BEEN ENROLLED IN A CHEMICAL DEPENDENCY/SUBSTANCEABUSE PROGRAM, SOME INFORMATION MAY BE OMITTED. This clinical summary was aggregated from multiple sources. Caution should be exercised in using it in the provision of clinical care. This summary normalizes information from multiple sources, and as a consequence, information in this document may materially change the coding, format and clinical context of patient data. In addition, data may be omitted in some cases. CLINICAL DECISIONS SHOULD BE BASED ON THE PRIMARY CLINICAL RECORDS. [employer] provides no warranty or guarantee of the accuracy or completeness of information in this document.
== END | disposition home or self-care (01) ==
LOC: OPBI 07:09
PROVIDERS: PCP Family Medicine; Referring Provider Obstetrics & Gynecology; Visit Provider Obstetrics & Gynecology
DX: Z12.31 Encounter for screening mammogram for malignant neoplasm of breast (principal); Z80.3 Family history of malignant neoplasm of breast
CPT/HCPCS: 77063; 77067

== ENCOUNTER → 2025-03-06 | Outpatient (CLI) | payer BC, SELFPAY ==
[2025-03-06 06:27] LABS: Hematocrit 45.5 % (37-47); Hemoglobin 15.2 g/dL (12.0-15.0); Immature Granulocytes Count 0.010 X10^3/uL (0.0-0.0); Mean Corp Hgb Conc 33.4 g/dL (32-36); Mean Corpuscular Volume 87.7 fL (81-99); Mean Platelet Vol. 9.9 fl (6.2-12.0); NRBC Flagged by Analyzer 0 % (0-5); Platelet Count 188 K/mm3 (150-450); RBC Distribution Width CV 12.1 % (11.6-14.6); RBC Distribution Width SD 38.5 fl (35.1-43.9); Red Blood Count 5.19 M/mm3 (4.2-5.4); White Blood Count 5.8 K/mm3 (4.4-11.0)
[2025-03-06 07:14] LABS: AST(SGOT) 25 U/L (<=31); Alanine Aminotransfer ALT/SGPT 25 U/L (<=34); Albumin, Serum 4.3 g/dL (3.5-5.0); Alkaline Phosphatase 101 U/L (35-104); Anion Gap 10 (5-15); BUN 15 mg/dL (4-19); BUN/Creat Ratio 27.4 RATIO (10-20); Calcium,Total 9.4 mg/dL (7.6-11.0); Carbon Dioxide 25.9 mmol/L (21.0-32.0); Chloride 104 mmol/L (98-108); Cholesterol 225 mg/dL (<=200); Globulin 2.8 g/dL (2.2-4.2); Glucose 97 mg/dL (70-99); Low Density Lipoprotein Calc. 153 mg/dL; Potassium 3.8 mmol/L (3.3-5.1); Triglycerides 95 mg/dL; Very Low Density Lipoprotein 19 mg/dL (5-40); Vitamin D,25 Hydroxy 35.0 ng/mL (30-100); cholesterol:hdl ratio screen 4.08
== END | disposition home or self-care (01) ==
LOC: LAB 06:02
PROVIDERS: PCP Family Medicine; Referring Provider Family Medicine; Visit Provider Family Medicine
DX: Z00.00 Encounter for general adult medical examination without abnormal findings (principal); E55.9 Vitamin D deficiency, unspecified
CPT/HCPCS: 36415; 80053; 80061; 82306; 84443; 85025

== ENCOUNTER 2025-03-24 01:41 | Observation (INO) | payer BC, SELFPAY ==
[2025-03-24] VITALS (20 sets, daily range): BP systolic 106–164; BP diastolic 71–100; PULSE 75–101; RESP 14–18; TEMP 36.3–37.3; O2SAT 95–982; BMI 23.6; BMI 23.4
--- NOTE | 2025-03-24 02:10 | CT_ITS ---
PROCEDURE: ABDOMEN/PELVIS W IV CONT ONLY 03/24/2025 REASON FOR EXAM: ABDOMINAL PAIN TECHNIQUE: Procedure Code: [id number] Modality: CT Procedure: ABDOMEN/PELVIS W IV CONT ONLY Coronal and Sagittal reconstruction series were provided. CONTRAST: isovue [id number] VOLUME: 100 One or more dose reduction techniques were used (e.g., Automated exposure control, adjustment of the mA and/or kV according to patient size, use of iterative reconstruction technique. RADIATION DOSE SUMMARY: CTDI Vol 13.71 mGy DLP :713.64 mGycm COMPARISON: none FINDINGS: Distended appendix reaching 14 mm in diameter with mural thickening of its distal segment and tip. Faint surrounding fat stranding noted Colonic fecal loading. The small bowel loops are unremarkable. The stomach is unremarkable. Average sized liver showing homogenous parenchymal attenuation with fatty changes. No dilated intra or extra-hepatic biliary tracts. Cholecystectomy clips Normal appearance of the pancreas with clear surrounding fat planes. The spleen, adrenal glands and IVC are unremarkable. Vascular atheromatous calcifications. Both kidneys are of average size and showing smooth outline with preserved parenchymal thickness. Right renal lower calyceal punctate calculus. No left renal calculi. No hydronephrosis. Distension of the urinary bladder showing minimal uniform mural thickening with no obvious masses. Uterine interstitial fibroids, the largest 4.5 cm showing heterogenous attenuation. Vaginal pessary is noted. Bilateral adnexal metallic clips of tubal ligation are noted. Few pelvic phleboli are noted. No ascites or free air. No obvious pathologically enlarged lymph nodes. Scanned osseous structures show no osseous destruction. Scanned lung bases show no obvious abnormalities. CT/Abdomen/Pelvis W IV Cont ONLY IMPRESSION: Distended appendix with mural thickening of its distal segment and tip worrisom e of appendicitis. Advise clinical and laboratory correlation. Right renal lower calyceal punctate calculus. Uterine interstitial fibroids. [facility]
--- OUTSIDE RECORDS SUMMARY | 2025-03-24 02:15 | XMS RPT_ITS | CCD ---
Author Organization [facility] Care Team Providers Care Crew Dispatcher Name Role Phone Sherrie Kovacs Maco Unavailable Unavailab Khadijah Gray MD Unavailable [phone] CEBUL IIIRINKU Unavailable Unavailable CEBUL III, RINKU A Unavailable Unavailable Khadijah Hill MD Unavailable [phone] Dr. Vega Strickland Primary Care Provider [phone] Dr. Vega Strickland Referring Provider Dr. Khadijah Hill Attending Provider [phone] Dr. Vega Strickland Primary Care Provider [phone] Dr. Vega Strickland Referring Provider [phone] Dr. Khadijah Hill Attending Provider [phone] Dr. Vega Strickland Primary Care Provider [phone] Dr. Vega Strickland Referring Provider Dr. Khadijah Hill Attending Provider [phone] Dr. Vega Strickland DO Primary Care Provider Dr. Khadijah Hill MD Attending Provider Dr. Khadijah Hill MD Referring Provider Dr. Vega Strickland DO Referring Provider [phone] Khadijah Hill Attending Unavailable Vega Strickland Primary Care Unavailable Vega Strickland Referring Unavailable Khadijah Hill Attending Unavailable Khadijah Hill Referring Unavailable Vega Strickland Primary Care Unavailable Vega Strickland Primary Care Unavailable Vega Strickland Unavailable Vega Strickland Referring Unavailable Vega Strickland Primary Care Unavailable Lisa Fernández Attending Unavailable Vega Strickland Referring Unavailable Vega Strickland Primary Care Unavailable Lisa Fernández Attending Unavailable Vega Strickland Referring Unavailable Allergies Allergy Classification Reported Allergen(s) Allergy Type Date of Onset Reaction(s) Facility (3 sources) amoxicillin / clavulanate drug allergy 7 N/V [facility] (3 sources) Sulfonamides (Antibiotic) drug allergy [address] [facility] (10 sources) Sulfonamides (Antibiotic); Translations: [SULFA (SULFONAMIDE ANTIBIOTICS)] Propensity to adverse reactions to drug (disorder) 6 [facility] Repository (1 source) AMOXICILLIN-POT CLAVULANATE; Translations: [AMOXICILLIN-POT CLAVULANATE] Propensity to adverse reactions to drug (disorder) 6 [facility] Repository (1 source) OTHER; Translations: [OTHER] Propensity to adverse reactions (disorder) 6 [facility] Repository (8 sources) Amoxicillin Drug Allergy 1 Vomiting [facility] (8 sources) Clavulanate Drug Allergy 1 [facility] (1 source) Amoxicillin Drug Allergy 5 [facility] Repository (1 source) Clavulanate Drug Allergy 5 [facility] Repository Medications Current Medications Medication Drug Class(es) Dates Sig (Normalized) Sig (Original) azelastine hydrochloride 0.137 mg/actuat metered dose nasal spray (15 sources) Histamine-1 Receptor Antagonist Start: 12-23-2021 Azelastine 137 mcg (0.1 %) aerosol,spray Active 2 NMA INTRANASAL TWICE A DAY December 23, 2021 12:00am administer into each nostril Start: 12-23-2021 take 1 spray(s) nasa l route twice daily Azelastine Active 2 SPRAY INTRANASAL TWICE A DAY December 23, 2021 12:00am administer into each nostril Start: 11-30-2019 End: 12-20-2020 Azelastine 137 mcg (0.1 %) aerosol,spray Discontinued 2 NMA INTRANASAL TWICE A DAY November 30, 2019 12:00am December 20, 2020 9:42am administer into each nostril Start: 11-30-2019 End: 12-20-2020 take 1 spray(s) nasal route twice daily Azelastine Discontinued 2 SPRAY INTRANASAL TWICE A DAY November 30, 2019 12:00am December 20, 2020 9:42am administer into each nostril Dietary Supplement (3 sources) Start: 12-26-2022 Dietary Supple ment Active CAP PO December 25, 2022 11:00pm Start: 12-26-2022 Dietary Supple ment Active CAP PO December 26, 2022 12:00am Dietary Supplement capsule (2 sources) Start: 12-26-2022 Dietary Supple ment capsule Active NMA PO December 26, 2022 12:00am estradiol 0.1 mg/ml vaginal cream (2 sources) Estrogen Start: 01-19-2024 Estradiol 0.01 % (0.1 mg/gram) cream Active 0 VAGINAL .COMPLEX 42.5 2 January 19, 2024 12:00am small amount as directed vaginal every other day X 4 weeks then twice a week; fexofenadine hydrochloride 180 mg oral tablet (11 sources) Histamine-1 Receptor Antagonist Start: 11-19-2017 take 1 tablet by mouth every twenty-four hours Fexofenadine (Iraida Allergy) 180 mg tablet Active 180 mg PO Q24H November 19, 2017 12:00am IRAIDA ALLERGY 180 MG TABS PRN FEXOFENADINE HCL [id number] Khadijah Hill MD Herbal Drugs capsule (2 sources) Start: 12-31-2023 Herbal Drugs c apsule Active NMA PO December 31, 2023 12:00am triamcinolone acetonide 0.055 mg/actuat metered dose nasal spray (7 sources) Corticosteroid Start: 12-23-2021 Triamcinolone Acetonide (Nasacort) 55 mcg aerosol,spray Active 2 NMA INTRANASAL DAILY December 23, 2021 12:00am administer into each nostril Start: 12-23-2021 take 1 spray(s) nasa l route once daily Triamcinolone Acetonide (Nasacort) 55 mcg aerosol,spray Active 2 SPRAY INTRANASAL DAILY December 23, 2021 12:00am administer into each nostril Completed/Discontinued Medications Medication Drug Class(es) Dates Sig (Normalized) Sig (Original) cholecalciferol 0.125 mg oral capsule (8 sources) Vitamin D Start: 04-15-2018 End: 11-22-2018 take 1 capsule by mouth once Cholecalciferol (Vitamin D3) 5,000 UNIT capsule Discontinued 5000 U PO MOTH April 15, 2018 1:00am November 22, 2018 9:17am ferrous sulfate 325 mg oral tablet (8 sources) Start: 11-22-2018 End: 11-30-2019 take 1 tablet by mouth once daily Ferrous Sulfate 325 mg (65 mg iron) tablet Discontinued 325 mg PO DAILY November 22, 2018 12:00am November 30, 2019 8:27am I-X Herbal Supplement (8 sources) Start: 04-15-2018 End: 11-22-2018 I-X Herbal Supplement Discontinued 2 {tbl} PO TWICE A DAY April 15, 2018 1:00am November 22, 2018 9:17am Start: 04-15-2018 End: 11-22-2018 take 2 tablets [...] furoate 0.05 mg/actuat metered dose nasal spray (19 sources) Corticosteroid Start: 11-30-2019 End: 12-20-2020 Mometasone (Nasonex) 50 mcg/actuation spray,non-aerosol Discontinued 2 NMA INTRANASAL DAILY November 30, 2019 12:00am December 20, 2020 9:43am administer into each nostril Start: 11-30-2019 End: 12-20-2020 take 1 spray(s) nasal route once daily Mometasone (Nasonex) 50 mcg/actuation spray,non-aerosol Discontinued 2 SPRAY INTRANASAL DAILY November 30, 2019 12:00am December 20, 2020 9:43am administer into each nostril Start: 11-19-2017 End: 11-22-2018 Mometasone (Nasonex) 50 mcg/ actuation spray,non-aerosol Discontinued 2 NMA INTRANASAL daily as needed for Allergies November 19, 2017 12:00am November 22, 2018 9:17am Start: 11-19-2017 End: 11-22-2018 Mometasone (Nasonex) 50 mcg/ actuation spray,non-aerosol Discontinued 2 SPRAY INTRANASAL daily November 19, 2017 12:00am November 22, 2018 9:17am Start: 11-17-2016 NASONEX 50 MCG /ACT SUSP PRN MOMETASONE FUROATE [id number] Khadijah Hill MD Start: 11-17-2016 NASONEX 50 MCG /ACT SUSP PRN MOMETASONE FUROATE [id number] Khadijah Hill MD Multivitamin preparation (6 sources) Start: 12-20-2020 End: 12-23-2021 take 1 tablet by mouth once daily Multivitamin Discontinued 1 TABLET PO DAILY December 20, 2020 12:00am December 23, 2021 10:16am Start: 12-20-2020 End: 12-23-2021 take 1 tablet by mouth once daily Multivitamin Discontinued 1 TABLET PO DAILY December 19, 2020 11:00pm December 23, 2021 9:16am Start: 12-20-2020 take 1 tablet by araceil th once daily Multivitamin Active 1 TABLET PO DAILY December 20, 2020 12:00am Multivitamin tablet (2 sources) Start: 12-20-2020 End: 12-23-2021 Multivitamin tablet Disconti nued 1 {tbl} PO DAILY December 20, 2020 12:00am December 23, 2021 10:16am Problems Active Problems Problem Classification Problem Date Documented Da te Episodic/Chronic Benign neoplasm of uterus (12 sources) Intramural leiomyoma of uterus; Translations: [Intramural leiomyoma of uterus] Episodic Comment on above: rubin/postmenopausal, has decreased in size. patient declines intervention Inflammatory diseases of female pelvic organs (2 sources) Vaginitis; Translations: [Acute vaginitis] 02-25-2024 Episodic Nutritional deficiencies (1 source) Vitamin D deficiency, unspecified; Translations: [Vitamin D deficiency, unspecified] Onset: 03-06-2025 Chronic Other screening for suspected conditions (not mental disorders or infectious disease) (9 sources) Patient encounter status; Translations: [Encounter for screening for malignant neoplasm of intestinal tract, unspecified] Onset: 12-19-2024 05-14-2018 Episodic Prolapse of female genital organs (20 sources) Cystocele; Translations: [Cystocele, unspecified] Onset: 03-09-2025 Chronic Comment on above: moderate. Estradiol cream. Avoid constipation, heavy lifting. Call if wants pessary vs surgery Unclassified (1 source) Unknown / UNK(Unknown) Onset: 10-31-2016 Past or Other Problems Problem Classification Problem Date Documented Date Episodic/Chronic Other female genital disorders (3 sources) Enlarged uterus; Translations: [Hypertrophy of uterus] Onset: 11-17-2016 11-17-2016 Episodic Unclassified (2 sources) Gynecologic examination ; Translations: [Encounter for gynecological examination (general) (routine) with abnormal findings] Onset: 11-17-2016 Resolved: 11-18-2016 11-17-2016 Results Test Name Value Interpretation Reference Range Facility [facility] Office Visit Reporton 03-15-2025 [facility] Office Visit Report [facility] [address], [address] [place] [address] OFFICE VISIT Date of Service: 03/15/25 MR#: [id number] Acct: [id number] Name: ELZBIETA JENNINGS Rep #: [id number] : 1965 Provider: MISSY Dela Cruz Age/Sex: 59/F Location: [facility] [place] [facility] Status: Signed Intake Vital Signs 03/09/25 10:22 03/15/25 15:48 Height 5 ft 4 in 5 ft 4 in Weight: 136 lb 5 oz 135 lb BMI 23.3 23.1 BP 124/81 H 136/88 H Intake Visit Reasons: pessary causing pain Aviation Safety Technician Required: No Is patient in pain?: No Allergies Sulfa (Sulfonamide Antibiotics) Allergy (Verified 03/15/25 15:51) Rash amoxicillin (From Augmentin) Adverse Reaction (Verified 03/15/25 15:51) Vomiting clavulanic acid (From Augmentin) Adverse Reaction (Verified 03/15/25 15:51) Vomiting Medications ???Medication ???Instructions ???Recorded ???Confirmed ???Type fexofenadine 180 mg tablet 180 mg PO Q24H 11/19/17 03/15/25 H istory (Iraida Allergy) azelastine 137 mcg (0.1 %) nasal 2 spray intranasal BID 12/23/21 History spray triamcinolone acetonide 55 mcg 2 spray intranasal DAILY 12/23/21 03/15/25 History nasal spray aerosol (Nasacort) dietary supplement cap PO 12/26/22 03/15/25 History herbal drugs cap PO 12/31/23 03/15/25 History estradiol 0.01% (0.1 mg/gram) See Rx Instructions vaginal 03/15/25 Rx vaginal cream .COMPLEX #42.5 grams PFSH Medical History Asthma Fibrocystic breast disease [...] Yes additional social history: -Tomás HPI pessary causing pain Details: ELZBIETA JENNINGS is a 59 year old who presents for a pessary issue. She was just fitted for a pessary last week; since having this place was noticed pain and pressure associated with this. No bleeding; took pessary out and did have relief. Put the pessary back and does have pressure with it. History 6 Elective abortions Hx Para 5 [...] and no additional complaints, except as documented Exam Const General: cooperative, healthy appearing, comfortable and no acute distress Orientation: alert, awake and oriented x3 Resp Effort Inspection: normal respiratory effort External Female Exam: normal external appearance and normal appearance of the urethra Urethra: normal appearance of the urethra Speculum Exam - Vagina: normal appearance of the vagina and normal vaginal discharge Speculum Exam - Cervix: normal appearance of the cervix and nontender Bimanual Exam- Vagina Uterus: normal bimanual exam, normal palpation, uterine size normal, No tender and non-tender Bimanual Exam- Adnexa, other: rectocele, cystocele and vaginal apex descent Pelvic Support: cystocele moderate (III), rectocele moderate (III) and vaginal apex descent moderate (III) Neuro General: patient alert, patient awake and patient oriented x3 Cognition: normal cognition Speech: speech normal Gait: normal gait Psych Appearance: grossly nor (more content not included)... Normal [facility] Office Visit Reporton 03-09-2025 [facility] Office Visit Report [facility] [address], [address] [place] [address] OFFICE VISIT Date of Service: 03/09/25 MR#: [id number] Acct: [id number] Name: ELZBIETA JENNINGS Rep #: [id number] : 1965 Provider: MISSY Dela Cruz Age/Sex: 59/F Location: [facility] [place] Status: Signed Intake Vital Signs 12/19/24 08:44 03/09/25 10:22 Height 5 ft 4 in 5 ft 4 in Weight: 133 lb 8 oz 136 lb 5 oz BMI 22.8 23.3 BP 130/87 H 124/81 H Intake Visit Reasons: PESSARY FITTING Aviation Safety Technician Required: No Is patient in pain?: No Allergies Sulfa (Sulfonamide Antibiotics) Allergy (Verified 12/19/24 08:45) Rash amoxicillin (From Augmentin) Adverse Reaction (Verified 12/19/24 08:45) Vomiting clavulanic acid (From Augmentin) Adverse Reaction (Verified 12/19/24 08:45) Vomiting Medications ???Medication ???Instructions ???Recorded ???Confirmed ???Type fexofenadine 180 mg tablet 180 mg PO Q24H 11/19/17 03/09/25 H istory (Iraida Allergy) azelastine 137 mcg (0.1 %) nasal 2 spray intranasal BID 12/23/21 History spray triamcinolone acetonide 55 mcg 2 spray intranasal DAILY 12/23/21 03/09/25 History nasal spray aerosol (Nasacort) dietary supplement cap PO 12/26/22 03/09/25 History herbal drugs cap PO 12/31/23 03/09/25 History estradiol 0.01% (0.1 mg/gram) See Rx Instructions vaginal 03/09/25 Rx vaginal cream .COMPLEX #42.5 grams Is last menstrual period known: No Post menopausal: Yes Patient : No : No Control Method: tubal PFSH Medical History Asthma Fibrocystic breast disease [...] home: Yes additional social history: -Tomás HPI PESSARY FITTING Details: ELZBIETA JENNINGS is a 59 year old who presents for pessary fitting; previously seen SM who diagnosed with prolapse of bladder, uterus and rectocele. She is interested in pessary management for this. History 6 Elective abortions Hx Para 5 Spontaneous abortions Hx # Term Pregnancies Ectopic pregnancies Hx # Pregnancies Multiple births # of living children Past Pregnancies Del. Date Name GA/Weeks Outcome Route Bth Weight Gen Labor Lgth Anesthesia Del Locatn Provider [...] and no additional complaints, except as documented Exam Const General: cooperative, healthy appearing, comfortable and no acute distress Orientation: alert, awake and oriented x3 Resp Effort Inspection: normal respiratory effort External Female Exam: normal external appearance and normal appearance of the urethra Urethra: normal appearance of the urethra Speculum Exam - Vagina: normal appearance of the vagina and normal vaginal discharge Speculum Exam - Cervix: normal appearance of the cervix and nontender Bimanual Exam- Vagina Uterus: normal bimanual exam, normal palpation, uterine size normal, No tender and non-tender Bimanual Exam- Adnexa, other: rectocele, cystocele and vaginal apex descent Pelvic Support: cystocele moderate (III), rectocele moderate (III) and vaginal apex descent moderate (III) Neuro General: patient alert, patient awake and patient oriented x3 Cognition: normal cognition Speech: speech normal Gait: normal gait (more content not included)... Normal [facility] CBC W/Diff, Automatedon 11-0 -2024 Absolute Lymph 1.93 X10 3/uL Normal 0.83-4.51 [facility] Comment on above: Performed By: #### L 506.1001, L500.4050, L501.9520, L500.4100, L100.0100 #### [facility] [address] [place], [address] Absolute Neut 3.0 X10 3/uL Normal 2.0-7.7 [facility] Comment on above: Performed By: #### L 506.1001, L500.4050, L501.9520, L500.4100, L100.0100 #### [facility] [address] [place], [address] Basophils/100 WBC (Bld) 1.2 % High 0-1 [facility] Comment on above: Performed By: #### L 506.1001, L500.4050, L501.9520, L500.4100, L100.0100 #### [facility] [address] [place], [address] Eosinophils/100 WBC (Bld) 4.7 % Normal 0-5 [facility] Comment on above: Performed By: #### L 506.1001, L500.4050, L501.9520, L500.4100, L100.0100 #### [facility] [address] [place], [address] Erythrocyte distribution width (RBC) [Ratio] 12.1 % Normal 11.6-14.6 [facility] Comment on above: Performed By: #### L 506.1001, L500.4050, L501.9520, L500.4100, L100.0100 #### [facility] [address] [place], [address] Hematocrit (Bld) [Volume fraction] 45.5 % Normal 37-47 [facility] Comment on above: Performed By: #### L 506.1001, L500.4050, L501.9520, L500.4100, L100.0100 #### [facility] [address] [place], [address] Hemoglobin (Bld) [Mass/Vol] 15.2 g/dL High 12.0-15.0 [facility] Comment on above: Performed By: #### L 506.1001, L500.4050, L501.9520, L500.4100, L100.0100 #### [facility] [address] [place], [address] IG% 0.200 Normal 0.0-0.9 [facility] Comment on above: Result Comment: IG% - Immature Granulocytes (promyelocytes, myelocytes and metamyelocytes) > 1% indicates that a LEFT SHIFT is Present. Performed By: #### L 506.1001, L500.4050, L501.9520, L500.4100, L100.0100 #### [facility] [address] [place], [address] Lymphocytes/100 WBC (Bld) 33.3 % Normal 19-41 [facility] Comment on above: Performed By: #### L 506.1001, L500.4050, L501.9520, L500.4100, L100.0100 #### [facility] [address] [place], [address] MCH (RBC) [Entitic mass] 29.3 pg Normal 27.0-32.0 [facility] Comment on above: Performed By: #### L 506.1001, L500.4050, L501.9520, L500.4100, L100.0100 #### [facility] [address] [place], [address] MCHC (RBC) [Mass/Vol] 33.4 g/dL Normal 32-36 [facility] Comment on above: Performed By: #### L 506.1001, L500.4050, L501.9520, L500.4100, L100.0100 #### [facility] [address] [place], [address] MCV (RBC) [Entitic vol] 87.7 fL Normal 81-99 [facility] Comment on above: Performed By: #### L 506.1001, L500.4050, L501.9520, L500.4100, L100.0100 #### [facility] [address] [place] [place], [address] Monocytes/100 WBC (Bld) 8.8 % Normal 0-10 [facility] Comment on above: Performed By: #### L 506.1001, L500.4050, L501.9520, L500.4100, L100.0100 #### [facility] [address] [place], [address] Neutrophils/100 WBC (Bld) 51.8 % Normal 47-70 [facility] Comment on above: Performed By: #### L 506.1001, L500.4050, L501.9520, L500.4100, L100.0100 #### [facility] [address] [place] [place], [address] Nucleated RBC (Bld) [#/Vol] 0 10*3/uL Normal 0-5 [facility] Comment on above: Performed By: #### L 506.1001, L500.4050, L501.9520, L500.4100, L100.0100 #### [facility] [address] [place] [place], [address] Platelet mean volume (Bld) [Entitic vol] 9.9 fL Normal 6.2-12.0 [facility] Comment on above: Performed By: #### L 506.1001, L500.4050, L501.9520, L500.4100, L100.0100 #### [facility] [address] [place], [address] Platelets (Bld) [#/Vol] 188 10*3/uL Normal 150-450 [facility] Comment on above: Performed By: #### L 506.1001, L500.4050, L501.9520, L500.4100, L100.0100 #### [facility] [address] [place], [address] RBC (Bld) [#/Vol] 5.19 10*6/uL Normal 4.2-5.4 [facility] Comment on above: Performed By: #### L 506.1001, L500.4050, L501.9520, L500.4100, L100.0100 #### [facility] [address] [place], [address] RDW SD 38.5 fl Normal 35.1-43.9 [facility] Comment on above: Performed By: #### L 506.1001, L500.4050, L501.9520, L500.4100, L100.0100 #### [facility] [address] [place], [address] WBC (Bld) [#/Vol] 5.8 10*3/uL Normal 4.4-11.0 [facility] Comment on above: Performed By: #### L 506.1001, L500.4050, L501.9520, L500.4100, L100.0100 #### [facility] [address] [place], [address] Comprehensive Metabolic [facility] 03-06-2025 Albumin [Mass/Vol] 4.3 g/dL Normal 3.5-5.0 [facility] Comment on above: Performed By: #### L 506.1001, L500.4050, L501.9520, L500.4100, L100.0100 #### [facility] [address] [place], [address] Albumin/Globulin [Mass ratio] 1.6 {ratio} Normal 0.9-2.4 [facility] Comment on above: Performed By: #### L 506.1001, L500.4050, L501.9520, L500.4100, L100.0100 #### [facility] [address] [place], [address] ALK PHOS 101 U/L Normal 35-104 [facility] Comment on above: Performed By: #### L 506.1001, L500.4050, L501.9520, L500.4100, L100.0100 #### [facility] [address] [place], [address] ALT [Catalytic activity/Vol] 25 U/L Normal <=34 [facility] Comment on above: Performed By: #### L 506.1001, L500.4050, L501.9520, L500.4100, L100.0100 #### [facility] [address] [place], [address] AST [Catalytic activity/Vol] 25 U/L Normal <=31 [facility] Comment on above: Performed By: #### L 506.1001, L500.4050, L501.9520, L500.4100, L100.0100 #### [facility] [address] [place], [address] Bilirubin [Mass/Vol] 0.77 mg/dL Normal 0.00-1.30 [facility] Comment on above: Performed By: #### L 506.1001, L500.4050, L501.9520, L500.4100, L100.0100 #### [facility] [address] [place], [address] BUN/CRE 27.4 RATIO High 10-20 [facility] Comment on above: Performed By: #### L 506.1001, L500.4050, L501.9520, L500.4100, L100.0100 #### [facility] [address] [place], [address] Calcium [Mass/Vol] 9.4 mg/dL Normal 7.6-11.0 [facility] Comment on above: Performed By: #### L 506.1001, L500.4050, L501.9520, L500.4100, L100.0100 #### [facility] [address] [place], [address] Chloride [Moles/Vol] 104 mmol/L Normal 98-108 [facility] Comment on above: Performed By: #### L 506.1001, L500.4050, L501.9520, L500.4100, L100.0100 #### [facility] [address] [place], [address] CO2 [Moles/Vol] 25.9 mmol/L Normal 21.0-32.0 [facility] Comment on above: Performed By: #### L 506.1001, L500.4050, L501.9520, L500.4100, L100.0100 #### [facility] [address] [place], [address] Creatinine [Mass/Vol] 0.54 mg/dL Low 0.70-1.20 [facility] Comment on above: Performed By: #### L 506.1001, L500.4050, L501.9520, L500.4100, L100.0100 #### [facility] [address] [place], [address] GAP 10 Normal 5-15 [facility] Comment on above: Performed By: #### L 506.1001, L500.4050, L501.9520, L500.4100, L100.0100 #### [facility] [address] [place], [address] GFR/1.73 sq M.predicted among non-blacks MDRD (S/P/Bld) [Vol rate/Area] 107 mL/min/{1.73_m2} Normal >60 [facility] Comment on above: Result Comment: mL/m in/1.73m2 CKD-EPI Creatinine Equation (2020) Performed By: #### L 506.1001, L500.4050, L501.9520, L500.4100, L100.0100 #### [facility] [address] [place], [address] Globulin (S) [Mass/Vol] 2.8 g/dL Normal 2.2-4.2 [facility] Comment on above: Performed By: #### L 506.1001, L500.4050, L501.9520, L500.4100, L100.0100 #### [facility] [address] [place], [address] Glucose [Mass/Vol] 97 mg/dL Normal 70-99 [facility] Comment on above: Performed By: #### L 506.1001, L500.4050, L501.9520, L500.4100, L100.0100 #### [facility] [address] [place], [address] Potassium [Moles/Vol] 3.8 mmol/L Normal 3.3-5.1 [facility] Comment on above: Performed By: #### L 506.1001, L500.4050, L501.9520, L500.4100, L100.0100 #### [facility] [address] [place], [address] Sodium [Moles/Vol] 140 mmol/L Normal 133-145 [facility] Comment on above: Performed By: #### L 506.1001, L500.4050, L501.9520, L500.4100, L100.0100 #### [facility] [address] [place], [address] T PROT 7.0 g/dL Normal 5.9-8.4 [facility] Comment on above: Performed By: #### L 506.1001, L500.4050, L501.9520, L500.4100, L100.0100 #### [facility] [address] [place], [address] Urea nitrogen [Mass/Vol] 15 mg/dL Normal 4-19 [facility] Comment on above: Performed By: #### L 506.1001, L500.4050, L501.9520, L500.4100, L100.0100 #### [facility] [address] [place], [address] Lipid Profileon 03-06-2025 CHOL:HDL 4.08 Normal [facility] Comment on above: Performed By: #### L 506.1001, L500.4050, L501.9520, L500.4100, L100.0100 #### [facility] [address] [place], [address] Cholesterol [Mass/Vol] 225 mg/dL High <=200 [facility] Comment on above: Result Comment: Chol esterol level, Desirable <200 mg/dL Borderline high cholesterol 200-239 mg/dL High cholesterol >=240 mg/dL Recommendations of the NCEP Adult Treatment Panel for the following risk-cutoff thresholds for the [place] population. Performed By: #### L 506.1001, L500.4050, L501.9520, L500.4100, L100.0100 #### [facility] [address] [place], [address] Cholesterol in HDL [Mass/Vol] 55 mg/dL Normal [facility] Comment on above: Result Comment: Jeanette onal Cholesterol Education Program (NCEP) guidelines: <40 mg/dL: Low HDL-cholesterol (major risk factor for CHD) >= 60 mg/dL: High HDL-cholesterol (negative risk factor for CHD) HDL-cholesterol is affected by a number of factors, e.g. smoking, exercise, hormones, sex and age. Performed By: #### L 506.1001, L500.4050, L501.9520, L500.4100, L100.0100 #### [facility] [address] [place], [address] Cholesterol in LDL [Mass/Vol] 153 mg/dL Normal [facility] Comment on above: Result Comment: Bord yofkah=528-613 mg/dL Higher Oqhc=038 mg/dL or greater Dejesus Equation 2020 for LDL-C Performed By: #### L 506.1001, L500.4050, L501.9520, L500.4100, L100.0100 #### [facility] [address] [place], [address] Cholesterol in VLDL [Mass/Vol] 19 mg/dL Normal 5-40 [facility] Comment on above: Performed By: #### L 506.1001, L500.4050, L501.9520, L500.4100, L100.0100 #### [facility] [address] [place], [address] Triglyceride [Mass/Vol] 95 mg/dL Normal [facility] Comment on above: Result Comment: The drugs N-Acetylcysteine and Metamizole may falsely depress this assay. Normal range: <150 mg/dL Borderline High: 150-199 mg/dL High: 200-499 mg/dL Very High: >500 mg/dL Performed By: #### L 506.1001, L500.4050, L501.9520, L500.4100, L100.0100 #### [facility] [address] [place], [address] Thyroid Stim Hormone (TSH)on 03-06-2025 TSH 2.380 uIU/mL Normal 0.300-4.200 [facility] Comment on above: Performed By: #### L 506.1001, L500.4050, L501.9520, L500.4100, L100.0100 #### [facility] [address] [place], [address] Vitamin D,25 Hydroxyon 03-06 Vitamin D 25-OH 35.0 ng/mL Normal 30-100 [facility] Comment on above: Result Comment: Lindsay min D Status Deficiency: <20 ng/mL (50nmol/L) Insufficiency: 20-30 ng/mL (50-75 nmol/L) Sufficiency: 30-100 ng/mL (75-250 nmol/L) Toxicity: >100 ng/mL (>250 nmol/L) Performed By: #### L 506.1001, L500.4050, L501.9520, L500.4100, L100.0100 #### [facility] [address] [place], [address] Central Melt Specialist Office Visit Reporton 12-19-2024 Central Melt Specialist Office Visit Report [facility] [address], [address] [place] [address] OFFICE VISIT Date of Service: 12/19/24 MR#: [id number] Acct: [id number] Name: ELZBIETA JENNINGS Rep #: [id number] : 1965 Provider: Dr. 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) Chief Complaint: prolapse feels like it's getting worse Aviation Safety Technician Required: No Is patient in pain?: No Allergies Sulfa (Sulfonamide Antibiotics) Allergy (Verified 12/19/24 08:45) Rash amoxicillin (From Augmentin) Adverse Reaction (Verified 12/19/24 08:45) Vomiting clavulanic acid (From Augmentin) Adverse Reaction (Verified 12/19/24 08:45) Vomiting Medications ???Medication ???Instructions ???Recorded ???Confirmed ???Type fexofenadine 180 mg tablet 180 mg PO Q24H 11/19/17 12/19/24 H istory (Iraida Allergy) azelastine 137 mcg (0.1 %) nasal 2 spray intranasal BID 12/23/21 History spray triamcinolone acetonide 55 mcg 2 spray intranasal DAILY 12/23/21 12/19/24 History nasal spray aerosol (Nasacort) dietary supplement cap PO 12/26/22 12/19/24 History herbal drugs cap PO 12/31/23 12/19/24 History estradiol 0.01% (0.1 mg/gram) See Rx Instructions vaginal 12/19/24 Rx vaginal cream .COMPLEX #42.5 grams Is [...] Date Name GA/Weeks Outcome Route Bth Weight Gen Labor Lgth Anesthesia Del Locatn Provider FOB Unknown Alexandra Unknown Kei Unknown Lino Unknown Camilo Unknown Ruby HPI Encounter for routine gynecological examination Details: ELZBIETA JENNINGS is a 59 year old who presents for annual exam. Last PAP: 12/26/22 - normal History of abnormal PAP: Last mammogram: 12/05/24 - normal History of abnormal mammogram: Colon cancer screening: colonoscopy 2019 Other preventative health care screenings: PCP Marco A Female Reproductive History Questions: sexually active: Yes, [...] breasts and normal palpation of the axillae Other: left side wall lipomatous area fluctuant Resp Effort Inspection: normal respiratory effort GI Inspection: normal to inspection Palpation: soft Rectal Exam: visual inspection normal External Female Exam: normal ex (more content not included)... Normal [facility] Breast imaging reportOrdered By: Vlad Ignacio on 12-05-2024 Study report [facility] Services [address] [place] [address] [id number] SCRN MAMM (CAD)W/JOCELINE BILAT MR#: [id number] Acct: [id number] Name: ELZBIETA JENNINGS Rep #: [id number] : 1965 F 59 From: Atul Ignacio MD PCP: Dr. Vega Strickland, DO Status: REG CLI Study:SCRN MAMM (CAD)W/JOCELINE BILAT Date of Exa m: 12/05/24 Exam# [id number] Ordering Dr: Khadijah Hill MD EXAM: SCRN MAMM (CAD)W/JOCELINE BILAT DATE: 12/05/2024 CLINICAL HISTORY: F, Age 59 y/o , SCREEN FOR BREAST CANCER Sister with breast cancer. TECHNIQUE: SCRN MAMM (CAD)W/JOCELINE BILAT COMPARISON: Prior exam(s) dated December 03, 2023.. FINDINGS: TISSUE DENSITY: There are scattered areas of fibroglandular density. Bilateral Breast Mammographic Findings: No significant masses, calcifications or other abnormalities are identified. Stable 7.3 mm intramammary lymph node seen in the deep upper lateral aspect of the right breast. No suspicious masses, areas of developing architectural distortion, or suspicious calcifications. There has been no significant interval change. BI/SCRN MAMM (CAD)W/JOCELINE BILAT IMPRESSION: Stable examination. OVERALL FINAL ASSESSMENT BI-RADS 2: BENIGN RECOMMENDATION: Routine annual follow-up in 1 Year A letter with findings and recommendations will be mailed to the patient. Reading Location: [id number] CC: Dr. Vega Strickland DO; Dr. Khadijah Hill MD ~ Retinal Angiographer: Signed [facility] SCRN MAMM (CAD)W/JOCELINE BILATo n 12-05-2024 SCRN MAMM (CAD)W/JOCELINE BILAT [facility] Imaging Services [address] [place] [address] SCRN MAMM (CAD)W/JOCELINE BILAT MR#: [id number] Acct: [id number] Name: ELZBIETA JENNINGS Rep #: [id number] : 1965 F 59 From: Vlad cunningham MD PCP: Dr. Vega Strickland DO Status: REG CLI Study: SCRN MAMM (CAD)W/JOCELINE BILAT Date of Exam: 08/26 Exam# [id number] Ordering Dr: Khadijah Hill EXAM: SCRN MAMM (CAD)W/JOCELINE BILAT DATE: 12/05/2024 CLINICAL HISTORY: F, Age 59 y/o , SCREEN FOR BREAST CANCER Sister with breast cancer. TECHNIQUE: SCRN MAMM (CAD)W/JOCELINE BILAT COMPARISON: Prior exam(s) dated December 03, 2023.. FINDINGS: TISSUE DENSITY: There are scattered areas of fibroglandular density. Bilateral Breast Mammographic Findings: No significant masses, calcifications or other abnormalities are identified. Stable 7.3 mm intramammary lymph node seen in the deep upper lateral aspect of the right breast. No suspicious masses, areas of developing architectural distortion, or suspicious calcifications. There has been no significant interval change. BI/SCRN MAMM (CAD)W/JOCELINE BILAT IMPRESSION: Stable examination. OVERALL FINAL ASSESSMENT BI-RADS 2: BENIGN RECOMMENDATION: Routine annual follow-up in 1 Year A letter with findings and recommendations will be mailed to the patient. Reading Location: [id number] CC: Dr. Vega Strickland DO; Dr. Khadijah Hill MD Retinal Angiographer: Signed Normal [facility] Absolute lymphocyte countOrd ered By: Vega Strickland on 03-06-2023 Lymphocytes Auto (Unsp spec) [#/Vol] 1.50 10*3/uL 0.83-4.51 [facility] Basophil percentageOrdered B y: Vega Strickland on 03-06-2023 Basophils/100 WBC (Bld) 1.3 % 0-1 [facility] Bilirubin [Mass/Vol] 0.60 mg/dL 0.20-1.00 [facility] Comment on above: For patients on eltr ombopag therapy, use of Dimension [place] TBIL is not recommended. Chloride [Moles/Vol] 106 mmol/L 98-107 [facility] Cholesterol [Mass/Vol] 237 mg/dL <200 [facility] Comment on above: <200 mg/dL Desirable 200-240 mg/dL Borderline >240 mg/dL High Risk Eosinophils/100 WBC (Bld) 3.8 % 0-5 [facility] Glucose [Mass/Vol] 107 mg/dL 74-106 [facility] Comment on above: Fasting Glucose resu lt from 100 to 125 mg/dL suggests IMPAIRED HOMEOSTASIS per A.D.A. criteria. Neutrophils (Bld) [#/Vol] 3.8 10*3/uL 2.0-7.7 [facility] Neutrophils/100 WBC (Bld) 63.1 % 47-70 [facility] Potassium [Moles/Vol] 3.8 mmol/L 3.5-5.1 [facility] Protein [Mass/Vol] 7.5 g/dL 6.4-8.2 [facility] Sodium [Moles/Vol] 140 mmol/L 136-145 [facility] Triglyceride [Mass/Vol] 104 mg/dL <199 [facility] Comment on above: The drugs N-Acetylcy steine and Metamizole may falsely depress this assay.Serum Triglycerides Reference Interval Normal <150 mg/dL Borderline high 150 - 199 mg/dL High 200 - 499 mg/dL Very High > or = 500 mg/dL WBC (Bld) [#/Vol] 6.1 10*3/uL 4.4-11.0 [facility] Blood erythrocytes count (nu mber/volume)Ordered By: Vega Strickland on 03-06-2023 RBC (Bld) [#/Vol] 5.34 10*6/uL 4.2-5.4 [facility] Blood hemoglobin measurement (mass/volume)Ordered By: Vega Strickland on 03-06-2023 Hemoglobin (Bld) [Mass/Vol] 15.9 g/dL 12.0-15.0 [facility] Blood lymphocytes/100 leukoc ytesOrdered By: Vega Strickland on 03-06-2023 Lymphocytes/100 WBC (Bld) 24.6 % 19-41 [facility] Blood monocytes/100 leukocyt esOrdered By: Vega Strickland on 03-06-2023 Monocytes/100 WBC (Bld) 6.9 % 0-10 [facility] Blood platelet mean volumeOr dered By: Vega Strickland on 03-06-2023 Platelet mean volume (Bld) [Entitic vol] 10.3 fL 6.2-12.0 [facility] Determination of erythrocyte mean corpuscular volume (MCV)Ordered By: Vega Strickland on 03-06-2023 MCV (RBC) [Entitic vol] 90.1 fL 81-99 [facility] Hematocrit Auto (Bld) [Volum e fraction]Ordered By: Vega Strickland on 03-06-2023 Hematocrit (Bld) [Volume fraction] 48.1 % 37-47 [facility] - Chemistry and C hemistry - challengeOrdered By: Vega Strickland on 03-06-2023 ALP [Catalytic activity/Vol] 105 U/L 45-117 [facility] ALT [Catalytic activity/Vol] 32 U/L 13-56 [facility] CO2 [Moles/Vol] 31.0 mmol/L 21.0-32.0 [facility] Globulin (S) [Mass/Vol] 3.6 g/dL 2.2-4.2 [facility] Urea nitrogen/Creatinine [Mass ratio] 22.6 mg/mg 10-20 [facility] - Hematology and Cell countsOrdered By: Vega Strickland on 03-06-2023 Erythrocyte distribution width (RBC) [Entitic vol] 40.3 fL 35.1-43.9 [facility] Erythrocyte distribution width (RBC) [Ratio] 12.3 % 11.6-14.6 [facility] Immature granulocytes/100 WBC (Bld) 0.300 % 0.0-0.9 [facility] Comment on above: IG% - Immature Granu locytes (promyelocytes, myelocytes and metamyelocytes) > 1% indicates that a LEFT SHIFT is Present. MCH (RBC) [Entitic mass] 29.8 pg 27.0-32.0 [facility] Nucleated RBC/100 WBC (Bld) [Ratio] 0 % 0-5 [facility] MCHC Auto (RBC) [Mass/Vol]Or dered By: Vega Strickland on 03-06-2023 MCHC (RBC) [Mass/Vol] 33.1 g/dL 32-36 [facility] No Panel InformationOrdered By: Vega Strickland on 03-06-2023 Estimated GFR (MDRD) Amer 128 mL/min >60 [facility] Comment on above: GFR Calc Estimated GFR (MDRD) Non-Af Amer 106 mL/min >60 [facility] Comment on above: Non- GFR Calc Vitamin D 25-Hydroxy 42.7 ng/mL [facility] Comment on above: Vitamin D 25(OH) Sta tus Range Deficiency <20 ng/mL (50nmol/L) Insufficiency 20 - 30 ng/mL (50 - 75 nmol/L) Sufficiency 30 - 100 ng/mL (75 - 250 nmol/L) Toxicity >100 ng/mL (>250 nmol/L) Platelets bldOrdered By: Chasidy Strickland on 03-06-2023 Platelets (Bld) [#/Vol] 212 10*3/uL 150-450 [facility] Serum or plasma albumin tomer urement (mass/volume)Ordered By: Vega Strickland on 03-06-2023 Albumin [Mass/Vol] 3.9 g/dL 3.2-5.0 [facility] Serum or plasma albumin/glob ulin mass ratioOrdered By: Vega Strickland on 03-06-2023 Albumin/Globulin [Mass ratio] 1.1 {ratio} 0.9-2.4 [facility] Serum or plasma calcium tomer urement (mass/volume)Ordered By: Vega Strickland on 03-06-2023 Calcium [Mass/Vol] 9.1 mg/dL 8.5-10.1 [facility] Serum or plasma cholesterol in HDL measurement (mass/volume)Ordered By: Vega Strickland on 03-06-2023 Cholesterol in HDL [Mass/Vol] 57 mg/dL >40 [facility] Comment on above: The drugs N-Acetylcy steine and Metamizole may falsely depress this assay. Reference Range HDL <40 mg/dL Low HDL Cholesterol HDL >or= 60 mg/dL High HDL Cholesterol Serum or plasma cholesterol in VLDL measurement (mass/volume)Ordered By: Vega Strickland on 03-06-2023 Cholesterol in VLDL [Mass/Vol] 21 mg/dL 5-40 [facility] Serum or plasma creatinine m easurement (mass/volume)Ordered By: Vega Strickland on 03-06-2023 Creatinine [Mass/Vol] 0.62 mg/dL 0.55-1.02 [facility] Comment on above: The validity of the calculated GFR & GFRAA in patients over 70 years has not been determined. Clinical correlation is essential. Serum or plasma low density lipoprotein (LDL) cholesterol measurement (mass/volume)Ordered By: Vega Strickland on 03-06-2023 Cholesterol in LDL [Mass/Vol] 159 mg/dL 0-130 [facility] Serum or plasma urea nitroge n measurement (mass/volume)Ordered By: Vega Strickland on 03-06-2023 Urea nitrogen [Mass/Vol] 14 mg/dL 7-18 [facility] Thin prep Papanicolaou smear with manual screeningOrdered By: Vega Strickland on 03-06-2023 Thin prep Papanicolaou smear with manual screening 18 U/L 15-37 [facility] Thin prep Papanicolaou smear with manual screening 3 5-15 [facility] Cervical or vagninal specime n microscopic examination by cytology stain (reported asOrdered By: Khadijah Hill on 12-26-2022 Cytology report Cyto stain Doc (Cvx/Vag) Comment . [facility] Comment on above: The Pap smear is [...] DNA Probe+sig amp Ql (Cvx) Negative Negative [facility] Comment on above: This nucleic acid am plification test detects fourteen high- risk HPV types (16,18,31,33,35,39,45,51,52,56,58,59,66,68)without differentiation. Laboratory - CytologyOrdered By: Khadijah Hill on 12-26-2022 Supervisor Drying And Softening Cyto stain Nom (Cvx/Vag) [ID] Comment . [facility] Comment on above: Davonte De La Paz totechnologist (ASCP) Laboratory - Miscellaneous t estsOrdered By: Khadijah Hill on 12-26-2022 Service comment (Unsp spec) [Interp] Comment . [facility] Comment on above: This liquid based Th inPrep(R) pap test was screened withthe use of an image guided system. Service comment (Unsp spec) [Interp] . . [facility] Liquid-based cerv Pap + CT/G C by GERALD w reflex to high-risk HPV for ASCUSOrdered By: Khadijah Hill on 12-26-2022 Cytology report Cyto stain.thin prep Doc (Cvx/Vag) Comment . [facility] Comment on above: Criteria not met, HP V Genotype not performed.Performed at: [facility] [id number] [place], [place] [id number] Director: Galo Chi MD, Phone: [phone] at: - [facility] [place], [place] [id number] Director: Cheryl Mesa MD, Phone: [phone] at: =G - [facility] [address] [place], [place] [id number] Director: Cheryl Mesa MD, Phone: [phone] No Panel InformationOrdered By: Khadijah Hill on 12-26-2022 Pathology report final diagnosis Narrative Comment . [facility] Comment on above: NEGATIVE FOR INTRAEP ITHELIAL LESION OR MALIGNANCY.CELLULAR CHANGES ASSOCIATED WITH ATROPHY ARE PRESENT. Basophil percentageon 2021 Cholesterol [Mass/Vol] 238 mg/dL <200 [facility] Work Phone: Comment on above: <200 mg/dL Desirable 200-240 mg/dL Borderline >240 mg/dL High Risk Triglyceride [Mass/Vol] 101 mg/dL <199 [facility] Work Phone: Comment on above: The drugs N-Acetylcy steine and Metamizole may falsely depress this assay.Serum Triglycerides Reference Interval Normal <150 mg/dL Borderline high 150 - 199 mg/dL High 200 - 499 mg/dL Very High > or = 500 mg/dL Serum or plasma cholesterol in HDL measurement (mass/volume)on 03-14-2022 Cholesterol in HDL [Mass/Vol] 53 mg/dL >40 [facility] Work Phone: Comment on above: The drugs N-Acetylcy steine and Metamizole may falsely depress this assay. Reference Range HDL <40 mg/dL Low HDL Cholesterol HDL >or= 60 mg/dL High HDL Cholesterol Serum or plasma cholesterol in VLDL measurement (mass/volume)on 03-14-2022 Cholesterol in VLDL [Mass/Vol] 20 mg/dL 5-40 [facility] Work Phone: Serum or plasma low density lipoprotein (LDL) cholesterol measurement (mass/volume)on 03-14-2022 Cholesterol in LDL [Mass/Vol] 165 mg/dL 0-130 [facility] Work Phone: Office Visit: Annualon 11-17 Documentation of current medications (procedure) Done Invalid Interpretation Code [facility] Fall risk assessment No Invalid Interpretation Code [facility] Protein mass conc Done [facility] Tobacco smoking status NHIS Never Invalid Interpretation Code [facility] Tobacco smoking status NHIS Never smoker [facility] Tobacco use CPHS Never smoker Invalid Interpretation Code 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 She [...] and regular exercise ---150 min/wkfollow up with atomic physics professor for shop mechanic exam, including breast exam--perpatient requestFrank MOR Liu MD [facility] Office Visit: Annualon 10-20 MG Breast screening Normal Bilateral Invalid Interpretation Code [facility] Office Visit: Annualon 11-04 General categories Cyto stain Interp (Cervical or vaginal smear or scraping) Normal Invalid Interpretation Code [facility] Vital Signs Date Time Vital Sign Value Performing Clinician Faci josh 12-19-2024 08:44-0400 Body height 162.[address] Vega Strickland DO Work Phone: [facility] 12-19-2024 08:44-0400 Body mass index (BMI) [Ratio] 22.8 kg/m2 Dr. Vega Strickland DO Work Phone: [facility] 12-19-2024 08:44-0400 Body weight 60.[address] Vega Strickland DO Work Phone: [facility] 12-19-2024 08:44-0400 Diastolic blood pressure 87 mm[Hg] Dr. Vega Strickland DO Work Phone: [facility] 12-19-2024 08:44-0400 Systolic blood pressure 130 mm[Hg] Dr. Vega Strickland DO Work Phone: [facility] 12-26-2022 09:14-0400 Body height 162.[address] Vega Strickland Work Phone: [facility] 12-26-2022 09:09-0400 Body mass index (BMI) [Ratio] 23.5 kg/m2 Dr. Vega Strickland Work Phone: [facility] 12-26-2022 09:09-0400 Body weight 62.[address] Vega Strickland Work Phone: [facility] 12-26-2022 09:09-0400 Diastolic blood pressure 88 mm[Hg] Dr. Vega Strickland Work Phone: [facility] 12-26-2022 09:09-0400 Systolic blood pressure 128 mm[Hg] Dr. Vega Strickland Work Phone: [facility] 12-23-2021 10:16-0400 Body height 162.[address] Vega Strickland Work Phone: [facility] Work Phone: 12-23-2021 10:16-0400 Body mass index (BMI) [Ratio] 23.8 kg/m2 Dr. Vega Strickland Work Phone: [facility] Work Phone: 12-23-2021 10:16-0400 Body weight 62.[address] Vega Strickland Work Phone: [facility] Work Phone: 12-23-2021 10:16-0400 Diastolic blood pressure 90 mm[Hg] Dr. Vega Strickland Work Phone: [facility] Work Phone: 12-23-2021 10:16-0400 Systolic blood pressure 130 mm[Hg] Dr. Vega Strickland Work Phone: [facility] Work Phone: 11-17-2016 08:06-0400 BMI (Body Mass Index) 22.49 kg/m2 Khadijah Hill MD [facility] 11-17-2016 08:06-0400 BP Diastolic 81 mm[Hg] Khadijah Hill MD [facility] 11-17-2016 08:06-0400 BP Systolic 117 mm[Hg] Khadijah Hill MD [facility] 11-17-2016 08:06-0400 Height 161.29 cm Khadijah Hill MD [facility] 11-17-2016 08:06-0400 Pulse (Heart Rate) 80 /min Khadijah Hill MD [facility] 11-17-2016 08:06-0400 Respiratory Rate 16 /min Khadijah Hill MD [facility] 11-17-2016 08:060400 Weight 58.51 kg Khadijah Hill MD [facility] Encounters Encounter Date Encounter Type Care Provider Facility Start: 03-15-2025 End: 03-15-2025 ambulatory [facility] Facility:[facility] Start: 03-09-2025 End: 03-09-2025 ambulatory [facility] Facility:[facility] Start: 03-06-2025 Encounter for genera l adult medical examination without abnormal findings [facility] Start: 03-06-2025 ambulatory [facility] Facility: [facility] Start: 12-19-2024 End: 12-19-[address] Khadijah Hill MD -[facility] Work Phone: Start: 12-19-2024 End: 12-19-[address] Khadijah Hill MD [facility] Start: 12-19-2024 End: 12-19-[address] Vega Strickland DO Work Phone: -[facility] Start: 12-05-2024 End: 12-05-[address] Vega Strickland DO Work Phone: -[facility] Start: 12-05-2024 End: 12-05-[address] Khadijah Hill MD -[facility] Work Phone: Start: 12-05-2024 End: 12-05-2024 ambulatory Khadijah Hill Facility:[facility] Start: 05-01-2023 End: 05-01-2023 ambulatory [facility] Work Phone: Start: 05-01-2023 End: 05-01-2023 Discharged Recurring [facility] Work Phone: Start: 03-06-2023 End: 03-06-[address] Vega Strickland Work Phone: [facility] Work Phone: Start: 03-06-2023 End: 03-06-[address] Vega Strickland Work Phone: [facility] Work Phone: Start: 12-26-2022 End: 12-26-[address] Vega Strickland Work Phone: [facility] Work Phone: Start: 12-26-2022 End: 12-26-2022 Patient encounter procedure Dr. Vega Strickland [facility] Work Phone: Start: 12-26-2022 End: 12-26-[address] Vega Strickland Work Phone: [facility] Work Phone: Start: 12-02-2022 End: 12-02-2022 Discharged Recurring [facility] Work Phone: Start: 12-01-2022 End: 12-01-2022 ambulatory [facility] Work Phone: Start: 12-01-2022 End: 12-01-2022 Patient encounter procedure [facility] Work Phone: Start: 03-14-2022 End: 03-14-[address] Vega Strickland Work Phone: [facility] Work Phone: Start: 03-14-2022 End: 03-14-[address] Vega Strickland Work Phone: [facility] Start: 12-23-2021 End: 12-23-[address] Vega Strickland Work Phone: [facility] Start: 11-27-2021 End: 11-27-2021 Patient encounter procedure [facility] Start: 10-31-2016 End: 10-31-2016 Ambulatory RINKU A CEBUL III [facility] Jerry Procedures Date Procedure Procedure Detail Performing Clinician Start: 12-05-[address] Vega Strickland DO Work Phone: Start: 12-01-2022 Screening mammography Start: 11-27-2021 Screening mammography Start: 11-17-2016 End: 11-18-2016 Gynecologic examination Encounter for gynecological examination (general) (routine) with abnormal findings Khadijah Hill MD Plan of Treatment Date Care Activity Detail Author Start: 12-26-2022 Liquid based cervica l cytology screening [facility] Start: 11-19-2016 End: 11-20-2016 Transvaginal us, non-ob US Transvaginal [facility] Start: 11-19-2016 End: 11-20-2016 Us exam, pelvic, complete US Pelvis [facility] Start: 11-17-2016 End: 11-17-2016 Appointment Appointment [facility] Start: 11-17-2016 End: 11-17-2016 Transvaginal us, non-ob US Transvaginal [facility] Start: 11-17-2016 End: 11-17-2016 Us exam, pelvic, complete US Pelvis [facility] MG Breast - bilatera l Screening [facility] Work Phone: Path report.final Dx Spec [facility] Payers Date Payer Category Payer Self-pay [id number] 2024 Unknown [id number] Unknown [id number] Unknown [id number] [id number] [id number] Unknown [id number] [id number] [id number] Unknown [id number] [id number] [id number] Unknown [id number] [id number] Social History Date Type Detail Facility Start: 12-20-2020 End: 12-26-2022 Tobacco smoking status NHIS Unknown if ever smoked [facility] Start: 1965 Sex Assigned At Female W [facility] Start: 08-15-2024 Tobacco smoking stat us NHIS Never smoked tobacco (finding) [facility] Clinical Note 12-26-2022 Note Date & Type Note Facility 12-26-2022 Note [facility] Pap Smear Specimen Adequacy December 26, 2022 11:28am Comment . Satisfactory for evaluation. Endocervical and/or squamous metaplasticcells (endocervical component) are present. Comment on above: Satisfactory for kenya luation. Endocervical and/or squamous metaplasticcells (endocervical component) are present. 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 Encounter for routine gyneco logical examination noneactive [facility] Work Phone: Evaluation note Note Date & Type Note Facility Evaluation note Diagnosis Onset Date Resolution Cystocele and rectocele with incomplete uterovaginal prolapse acute December 8:37am Intramural uterine fibroid chronic December 19 8:37am Freehold-Walker grade 3 cystocele deleted December 19 8:37am Freehold-Walker grade 3 rectocele deleted December 19 8:37am Encounter for routine gynecological examination noneactive December 19 8:37am [facility] Work Phone: Reason for referral (narrative) Note Date & Type Note Facility Reason for referral (narrative) No reason for referral information available [facility] Work Phone: Summary Purpose Family History No [...] Will Yes May 28 9:11am 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 UCL REPAIR. PT HAS RX Chief Complaint SCREENING CTS R UPPER. UCL REPAIR. 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) December 19, 2024 8: 37am Reason for Visit Admit Date Cystocele and rectocele with incomplete uterovaginal prolapse December 19, 2024 8:37am Intramural uterine fibroid December 19, 2024 8:37am Freehold-Walker grade 3 cystocele December 192024 8:37am Freehold-Walker grade 3 rectocele December 192024 8:37am Encounter for routine gynecological exam ination December 19, 2024 8:37am Additional Source Comments INFORMATION SOURCE (unrecogn ized section and content) DATE CREATED AUTHOR 10/28/2017 [facility] DATE CREATED AUTHOR AUTHOR'S ORGANIZ ATION 03/16/2025 [facility] Goals (unrecognized section and content) Goals [...] Role Status Dates Dr. Vega Strickland DO Family Provider Active Dr. Vega Strickland DO Primary Care Provider Active Team Status: Inactive Member Role Status Dates Dr. Vega Strickland DO Primary Care Provider Active Dr. Khadijah [...] Strickland DO Primary Care Provider Active Dr. Khadijah Hill MD Attending Provider, Referr ing Provider Active Team Status: Inactive Member Role Status Dates Dr. Vega Strickland DO Primary Care Prov ider, Attending Provider, Referring Provider Active Team Status: Active Member Role/Relationship Status Dates Dr. Vega Strickland DO Primary Care Provider Active Team Status: Inactive Member Role/Relationship Status Dates Dr. Vega Strickland DO Primary Care Provider Active Start: December 05, 2024 End: December 05, 2024 Dr. Khadijah Hill MD Attending Provider Active Start: December 05, 2024 End: December 05, 2024 Dr. Khadijah Hill MD Referring Provider Active Start: December 05, 2024 End: December 05, 2024 Team Status: Inactive Member Role/Relationship Status Dates Dr. Vega Strickland DO Primary Care Provider Active Start: December 19, 2024 End: December 19, 2024 Dr. Vega Strickland DO Referring Provider Active Start: December 19, 2024 End: December 19, 2024 Dr. Khadijah Hill MD Attending Provider Active Start: December 19, 2024 End: December 19, 2024 FOR RECORDS PERTAINING TO PATIENTS WHO ARE [...] BE BASED ON THE PRIMARY CLINICAL RECORDS. [facility] provides no warranty or guarantee of the accuracy or completeness of information in this document.
[2025-03-24] MEDS: 0.9% Normal Saline (1000mL) 1,000 ML 999 ML IV (02:18)
[2025-03-24 02:28] LABS: Hematocrit 44.3 % (37-47); Hemoglobin 14.7 g/dL (12.0-15.0); Immature Granulocytes Count 0.020 X10^3/uL (0.0-0.0); Mean Corp Hgb Conc 33.2 g/dL (32-36); Mean Corpuscular Volume 88.6 fL (81-99); Mean Platelet Vol. 10.0 fl (6.2-12.0); NRBC Flagged by Analyzer 0 % (0-5); Platelet Count 180 K/mm3 (150-450); RBC Distribution Width CV 11.9 % (11.6-14.6); RBC Distribution Width SD 38.2 fl (35.1-43.9); Red Blood Count 5.00 M/mm3 (4.2-5.4); White Blood Count 8.8 K/mm3 (4.4-11.0)
--- NOTE | 2025-03-24 02:42 | EDS_ITS ---
HPI History of Present Illness Chief Complaint: Abd Pain Narrative Narrative: Patient was seen and examined after presenting to ED for having some abdominal discomfort she stated that she felt like she was having the start of the fluid at night she was having the belly pain felt nauseous this did not quite feel right felt like she needed to throw up but could not she did state though that she has been taking some Advil for the last several days in coordination with her doxycycline that she is taking for a chronic sinusitis she did report that she had a darker stool the day prior that she thought might of looked a little black but no history of GI bleeding she is not on blood thinners. Patient has a history of a cholecystectomy. [facility] Medical History Asthma Fibrocystic breast disease Home Medications ?Medication ?Instructions ?Recorded ?Last Taken ?Type fexofenadine 180 mg tablet 180 mg PO Q24H PRN allergy symptoms 11/19/17 Unknown History (Iraida Allergy) azelastine 137 mcg (0.1 %) nasal 2 spray intranasal BI D PRN allergy 12/23/21 Unknown History spray symptoms estradiol 0.01% (0.1 mg/gram) See Rx Instructions vagi nal 03/15/25 Unknown Rx vaginal cream .COMPLEX #42.5 grams Allergy/AdvReac Type Severity Reaction Status Date / Time Sulfa (Sulfonamide Allergy Rash Verified 03/24/25 01:42 Antibiotics) amoxicillin (From Augmentin) AdvReac Vomiting Verified 03/24/25 01:42 clavulanic acid (From AdvReac Vomiting Verified 03/24/25 01:42 Augmentin) Family History Mother Thyroid disorder Diabetes Father Hypertension Cancer squamous cell cancer Sister Breast cancer Surgical History History of carpal tunnel surgery of right wrist History of wisdom tooth extraction, class II edentulism H/O tubal ligation History of cholecystectomy Social History Smoking Status: Never smoker alcohol intake: never substance use type: does not use caffeine: No what type of physical activity do you participate in: aerobics frequency: 5-6 times per week seatbelt use: always do you feel safe at home: Yes additional social history: -Tomás ROS ROS ED ROS Narrative Pertinent Positives: Abdominal pain nausea feeling a little unwell taking Advil dark stool yesterday Pertinent Negatives: Fevers vomiting diarrhea urinary symptoms chest pain shortness of breath The remainder of review of systems negative unless otherwise stated in the HPI above. Systems reviewed including constitutional, psychiatric, cardiovascular, respiratory, integument, HENT, gastrointestinal. EXAM Physical Exam Narrative Exam Narrative: Afebrile hemodynamically stable does not appear toxic or in distress she is normocephalic and atraumatic. With nurse sole rougher present in the room did perform a rectal exam she had brown-colored stool on the finger no gross blood nothing black. Her abdomen was diffusely tender seemingly worse in the epigastric region no overlying abdominal wall cellulitis no crepitus no other skin discoloration. She has intact and equal MSPs in her extremities. Const Vital Signs: 03/24/25 01:41 03/24/25 01:45 03/24/25 03:41 Temperature 98.3 F Temperature Source Oral Pulse Rate 92 75 Respiratory Rate 18 16 Blood Pressure 163/100 H 152/100 H Blood Pressure Mean 121 117 Pulse Ox 99 98 Oxygen Delivery Method Room Air Room Air MDM MDM MDM Narrative Medical decision making narrative: Nursing notes, triage notes, available previous documentation, and vital signs were reviewed. Any discrepancies noted were addressed. Differential Diagnoses: Lower suspicion for GI bleed but still needs to be consideration to be pancreatitis diverticular disease lower suspicion for appendicitis or pyelonephritis or UTI or abdominal wall hernia or mesenteric ischemia Interventions: Zofran Antibiotics Given: Cipro and Flagyl Fluids Given: 1 L normal saline Labs Reviewed: No leukocytosis or leukopenia or anemia. No electrolyte abnormality or renal insufficiency troponin is less than 6 no transaminitis patient lipase is 25 Imaging Reviewed: Personally reviewed and interpreted by me: CT abdomen pelvis with a moderate to large stool burden. Official radiology interpretation: showing distended appendix worrisome for appendicitis EKG: Normal sinus rhythm rate of 84. EKG interpretation is noted and agreed to in the EMR. The interpretation of this patient's EKG contributed directly to the care and management of this patient. Previous Documentation Reviewed: None available or applicable at this time. ED Course: Patient presenting with symptoms as stated above she did not have a grossly physically positive blood on digital rectal exam or black stool but we did send it for testing we will get a CT will check labs she does not appear to be anemic. I spoke with on-call general surgeon Dr. Varela who will admit the patient and plan to go to the OR earlier this morning for early appendicitis we will provide the patient with Cipro and Flagyl This note was made utilizing voice recognition software. All attempts were made to correct spelling or other errors prior to note completion. However, due to the fast-paced nature of emergency medicine, some errors may still be present. Lab Data Labs: Laboratory Results - last 24 hr 03/24/25 03/24/25 02:19 03:08 WBC 8.8 RBC 5.00 Hgb 14.7 Hct 44.3 MCV 88.6 MCH 29.4 MCHC 33.2 RDW Std Deviation 38.2 RDW Coeff of Juan 11.9 Plt Count 180 MPV 10.0 Immature Gran % (Auto) 0.200 Neut % (Auto) 73.8 H Lymph % (Auto) 17.6 L [place] % (Auto) 5.9 Eos % (Auto) 1.7 Baso % (Auto) 0.8 Absolute Neuts (auto) 6.5 Absolute Lymphs (auto) 1.55 Nucleated RBC % 0 Sodium 139 Potassium 3.7 Chloride 103 Carbon Dioxide 25.4 Anion Gap 11 BUN 16 Creatinine 0.61 L Estim Creat Clear Calc 87.87 Est GFR (MDRD) Non-Af 104 BUN/Creatinine Ratio 25.4 H Glucose 125 H Lactic Acid < 1.0 Calcium 9.1 Total Bilirubin 0.45 AST 20 ALT 15 Alkaline Phosphatase 101 Troponin T High Sens < 6 Total Protein 6.9 Albumin 4.1 Globulin 2.7 Albumin/Globulin Ratio 1.5 Lipase 25 Urine Color Yellow Urine Clarity Clear Urine pH 8.0 Ur Specific [place] 1.015 Urine Protein Negative Urine Glucose (UA) Normal Urine Ketones Negative Urine Occult Blood Negative Urine Nitrite Negative Urine Bilirubin Negative Urine Urobilinogen Normal Ur Leukocyte Esterase 25 H Urine RBC 0 SEEN Urine WBC 0 SEEN Ur Squamous Epith Cells 0-5 SEEN Urine Bacteria 0 SEEN Urine Mucus 0 SEEN Radiography Diagnostic Testing: Clinical Impression(s) from Imaging Studies Abdomen/Pelvis CT 03/24/25 02:10 IMPRESSION: Distended appendix with mural thickening of its distal segment and tip worrisome of appendicitis. Advise clinical and laboratory correlation. Right renal lower calyceal punctate calculus. Uterine interstitial fibroids. [facility] T[facility] Chief Complaint: Abd Pain ED Provider: Ishmael Orellana Dx/Rx/DC Orders Clinical Impression: Acute appendicitis, Nausea, Abdominal pain Prescriptions: No Action fexofenadine [Iraida Allergy] 180 mg tablet 180 mg PO Q24H PRN (Reason: allergy symptoms) azelastine 137 mcg (0.1 %) aerosol,spray 2 spray intranasal BID PRN (Reason: allergy symptoms) Rx Instructions: administer into each nostril estradiol 0.01 % (0.1 mg/gram) cream See Rx Instructions vaginal .COMPLEX Qty: 42.5 2RF Rx Instructions: small amount(.25mg) as directed vaginal twice a week; Primary Care Provider: Vega Strickland Referrals: Vega Strickland DO [Primary Care Provider, Family Practice] Print Language: Estonian
[2025-03-24 02:51] LABS: AST(SGOT) 20 U/L (<=31); Alanine Aminotransfer ALT/SGPT 15 U/L (<=34); Albumin, Serum 4.1 g/dL (3.5-5.0); Alkaline Phosphatase 101 U/L (35-104); Anion Gap 11 (5-15); BUN 16 mg/dL (4-19); BUN/Creat Ratio 25.4 RATIO (10-20); Calcium,Total 9.1 mg/dL (7.6-11.0); Carbon Dioxide 25.4 mmol/L (21.0-32.0); Chloride 103 mmol/L (98-108); Estimated Creatinine Clearance 87.87 ml/min (50-250); Globulin 2.7 g/dL (2.2-4.2); Glucose 125 mg/dL (70-99); Lipase 25 U/L (13-75); Potassium 3.7 mmol/L (3.3-5.1); Troponin T High Sensitivity < 6 ng/L (<=14)
[2025-03-24 03:14] LABS: Mucous, Urine 0 SEEN /hpf (<or=2+); Red Blood Cells-Urine 0 SEEN /hpf (0-5)
[2025-03-24 03:16] LABS: Color, Urine Yellow (Yellow); Glucose, Dipstick Normal (Normal); Ketone-Dipstick Negative (Negative); Leukocyte Esterase-Dipstick 25 /ul (Negative); Nitrite-Dipstick Negative (Negative); Occult Blood-Urine Negative /ul (Negative); Protein-Dipstick Negative (Negative); Specific Gravity, Urine 1.015 (1.002-1.030); Urine Bilirubin Dipstick Negative (Negative)
[2025-03-24 03:37] LABS: Squamous Epithelial Cells - UA 0-5 SEEN /hpf (5-10)
--- NOTE | 2025-03-24 04:00 | HP.PCM.SX_ITS ---
HPI - General General Date of Admission: 03/24/25 HPI Narrative ELZBIETA JENNINGS, is a 59 F who presents due to diffuse abdominal pain with some pain to her right shoulder and back starting this morning. Patient have nausea denies any vomiting. CT abdomen pelvis shows dilated appendix at 1.4 cm with some inflammation towards the tip w some thickening of appendix at the tip. Patient normal white blood cell count. Patient last colonoscopy was 2018 was normal. [facility] Medical History Asthma Fibrocystic breast disease Home Medications ?Medication ?Instructions ?Recorded ?Last Taken ?Type fexofenadine 180 mg tablet 180 mg PO Q24H PRN allergy symptoms 11/19/17 Unknown History (Iraida Allergy) azelastine 137 mcg (0.1 %) nasal 2 spray intranasal BI D PRN allergy 12/23/21 Unknown History spray symptoms estradiol 0.01% (0.1 mg/gram) See Rx Instructions vagi nal 03/15/25 Unknown Rx vaginal cream .COMPLEX #42.5 grams Allergy/AdvReac Type Severity Reaction Status Date / Time Sulfa (Sulfonamide Allergy Rash Verified 03/24/25 01:42 Antibiotics) amoxicillin (From Augmentin) AdvReac Vomiting Verified 03/24/25 01:42 clavulanic acid (From AdvReac Vomiting Verified 03/24/25 01:42 Augmentin) Family History Mother Thyroid disorder Diabetes Father Hypertension Cancer squamous cell cancer Sister Breast cancer Surgical History History of carpal tunnel surgery of right wrist History of wisdom tooth extraction, class II edentulism H/O tubal ligation History of cholecystectomy Social History Smoking Status: Never smoker alcohol intake: never substance use type: does not use caffeine: No what type of physical activity do you participate in: aerobics frequency: 5-6 times per week seatbelt use: always do you feel safe at home: Yes additional social history: -Tomás Vital Signs Vital Signs Vital Signs: 03/24/25 01:41 03/24/25 01:45 03/24/25 03:41 Temperature 98.3 F Temperature Source Oral Pulse Rate 92 75 Respiratory Rate 18 16 Blood Pressure 163/100 H 152/100 H Blood Pressure Mean 121 117 Pulse Ox 99 98 Oxygen Delivery Method Room Air Room Air 03/24/25 03:53 03/24/25 03:54 Temperature 98 F 98 F Temperature Source Oral Pulse Rate 75 78 Respiratory Rate 16 18 Blood Pressure 152/100 H 152/100 H Blood Pressure Mean 117 117 Pulse Ox 982 98 Oxygen Delivery Method Room Air Weight Weight: 137 lb 9.095 oz Body Mass Index (BMI) 23.6 Physical Exam Const alert, oriented x3 and no apparent distress HEENT normocephalic and head/scalp atraumatic Resp normal respiratory effort Cardio regular rate GI soft to palpation; Negative for non-distended Palpation: tender Positive for RLQ; Negative for guarding Extremity no clubbing, cyanosis or edema Neuro CN's II-XII intact bilaterally Psych mental status grossly normal Results Lab / Micro Data 03/24/25 02:19 03/24/25 02:19 Labs: Laboratory Results - last 24 hr 03/24/25 02:19: WBC 8.8, RBC 5.00, Hgb 14.7, Hct 44.3, MCV 88.6, MCH 29.4, MCHC 33.2, RDW Std Deviation 38.2, RDW Coeff of Juan 11.9, Plt Count 180, MPV 10.0, Immature Gran % (Auto) 0.200, Neut % (Auto) 73.8 H, Lymph % (Auto) 17.6 L, [place] % (Auto) 5.9, Eos % (Auto) 1.7, Baso % (Auto) 0.8, Absolute Neuts (auto) 6.5, Absolute Lymphs (auto) 1.55, Nucleated RBC % 0, Sodium 139, Potassium 3.7, Chloride 103, Carbon Dioxide 25.4, Anion Gap 11, BUN 16, Creatinine 0.61 L, Estim Creat Clear Calc 87.87, Est GFR (MDRD) Non-Af 104, BUN/Creatinine Ratio 25.4 H, Glucose 125 H, Lactic Acid < 1.0, Calcium 9.1, Total Bilirubin 0.45, AST 20, ALT 15, Alkaline Phosphatase 101, Troponin T High Sens < 6, Total Protein 6.9, Albumin 4.1, Globulin 2.7, Albumin/Globulin Ratio 1.5, Lipase 25 03/24/25 03:08: Urine Color Yellow, Urine Clarity Clear, Urine pH 8.0, Ur Specific [place] 1.015, Urine Protein Negative, Urine Glucose (UA) Normal, Urine Ketones Negative, Urine Occult Blood Negative, Urine Nitrite Negative, Urine Bilirubin Negative, Urine Urobilinogen Normal, Ur Leukocyte Esterase 25 H, Urine RBC 0 SEEN, Urine WBC 0 SEEN, Ur Squamous Epith Cells 0-5 SEEN, Urine Bacteria 0 SEEN, Urine Mucus 0 SEEN Micro: Microbiology 03/24/25 02:06 Stool Stool Occult Blood (ALEJANDRO) - Final Imaging Radiology Impression Abdomen/Pelvis CT 03/24/25 02:10 IMPRESSION: Distended appendix with mural thickening of its distal segment and tip worrisome of appendicitis. Advise clinical and laboratory correlation. Right renal lower calyceal punctate calculus. Uterine interstitial fibroids. Reading Location: [place] [address] Assessment & Plan Assessment/Plan (1) Acute appendicitis: PLAN: Plan 1. Discussed procedure laparoscopic appendectomy, possible open along with the risk but not limited to bleeding, infection/abscess, injury to another organ (small bowel, colon, etc.), adhesion, hernia at incision sites, and anesthesia. Patient and her had no further question this time. Lucille Varela M.D. Pager: [phone] [facility] [address] [place] [address], [address] [place] [address] Office: [phone]
[2025-03-24] MEDS: metroNIDAZOLE 500 MG/100 ML BAG 100 MG IV (04:05)
--- OUTSIDE RECORDS SUMMARY | 2025-03-24 04:34 | XMS RPT_ITS | CCD ---
Author Organization [facility] Care Team Providers Care General Practice Name Role Phone Sherrie Kovacs Maco Unavailable Unavailab Khadijah Gray MD Unavailable [phone] CEBUL IIIRINKU Unavailable Unavailable CEBUL III, RINKU A Unavailable Unavailable Khadijah Hill MD Unavailable [phone] Dr. Vega Strickland Primary Care Provider [phone] Dr. Vega Strickland Referring Provider Dr. Khadijah Hill Attending Provider [phone] Dr. Vega Strickland Primary Care Provider [phone] Dr. Vega Strickland Referring Provider [phone] Dr. Khadijah Hill Attending Provider [phone] Dr. Vega Strickland Primary Care Provider [phone] Dr. Vega Strickland Referring Provider Dr. Khadijah Hill Attending Provider [phone] Dr. Vega Strickland DO Primary Care Provider Dr. Khadijah Hill MD Attending Provider [phone] Dr. Khadijah Hill MD Referring Provider [phone] Dr. Vega Strickland DO Referring Provider [phone] [...] amoxicillin / clavulanate drug allergy 7 N/V [facility] (3 sources) Sulfonamides (Antibiotic) drug allergy 7 HIves [facility] (10 sources) Sulfonamides (Antibiotic); Translations: [SULFA (SULFONAMIDE ANTIBIOTICS)] Propensity to adverse reactions to drug (disorder) 6 [facility], [facility] Repository (1 source) AMOXICILLIN-POT CLAVULANATE; Translations: [AMOXICILLIN-POT CLAVULANATE] Propensity to adverse reactions to drug (disorder) 6 [facility] Repository (1 source) OTHER; Translations: [OTHER] Propensity to adverse reactions (disorder) 6 [facility] Repository (8 sources) Amoxicillin Drug Allergy 1 Vomiting [facility] (8 sources) Clavulanate Drug Allergy 1 [facility] (1 source) Amoxicillin Drug Allergy 5 [facility] Repository (1 source) Clavulanate Drug Allergy 5 [facility] Repository Medications Current Medications Medication Drug Class(es) [...] ALLERGY 180 MG TABS PRN FEXOFENADINE HCL [id number] Khadijah Hill MD Herbal [facility] capsule (2 [...] 50 MCG /ACT SUSP PRN MOMETASONE FUROATE [id number] Khadijah Hill MD Start: 11-17-2016 NASONEX 50 MCG /ACT SUSP PRN MOMETASONE FUROATE [id number] Khadijah Hill MD Multivitamin preparation (6 sources) [...] Test Name Value Interpretation Reference Range Facility [facility] Office Visit Reporton 03-15-2025 Ship Loader Office Visit Report [facility] [address], [address] [place] [address] OFFICE VISIT Date of Service: 03/15/25 MR#: [id number] Acct: [id number] Name: ELZBIETA JENNINGS Rep #: [id number] : 1965 Provider: MISSY Dela Cruz Age/Sex: 59/F [place] [facility] [place] Status: Signed Intake Vital Signs 03/09/25 10:22 03/15/25 15:48 Height 5 ft 4 in 5 ft 4 in Weight: 136 lb 5 oz 135 lb BMI 23.3 23.1 BP 124/81 H 136/88 H Intake Visit Reasons: pessary causing pain 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 Normal [facility] CBC W/Diff, Automatedon 11-0 -2024 Absolute Lymph 1.93 X10 3/uL Normal 0.83-4.51 [facility] Comment on above: Performed By: #### L 506.1001, L500.4050, L501.9520, L500.4100, L100.0100 #### [facility] [address] [place], [address] Absolute Neut 3.0 X10 3/uL Normal 2.0-7.7 [facility] Comment on above: Performed By: #### L 506.1001, L500.4050, L501.9520, L500.4100, L100.0100 #### [facility] [address] [place], [address] Basophils/100 WBC (Bld) 1.2 % High 0-1 [facility] Comment on above: Performed By: #### L 506.1001, L500.4050, L501.9520, L500.4100, L100.0100 #### [facility] [address] [place], [address] Eosinophils/100 WBC (Bld) 4.7 % Normal 0-5 [facility] Comment on above: Performed By: #### L 506.1001, L500.4050, L501.9520, L500.4100, L100.0100 #### [facility] [address] [place], [address] Erythrocyte distribution width (RBC) [Ratio] 12.1 % Normal 11.6-14.6 [facility] Comment on above: Performed By: #### L 506.1001, L500.4050, L501.9520, L500.4100, L100.0100 #### [facility] [address] [place], [address] Hematocrit (Bld) [Volume fraction] 45.5 % Normal 37-47 [facility] Comment on above: Performed By: #### L 506.1001, L500.4050, L501.9520, L500.4100, L100.0100 #### [facility] [address] [place], [address] Hemoglobin (Bld) [Mass/Vol] 15.2 g/dL High 12.0-15.0 [facility] Comment on above: Performed By: #### L 506.1001, L500.4050, L501.9520, L500.4100, L100.0100 #### [facility] [address] [place], [address] IG% 0.200 Normal 0.0-0.9 [facility] Comment on above: Result Comment: IG% - Immature Granulocytes (promyelocytes, myelocytes and metamyelocytes) > 1% indicates that a LEFT SHIFT is Present. Performed By: #### L 506.1001, L500.4050, L501.9520, L500.4100, L100.0100 #### [facility] [address] [place], [address] Lymphocytes/100 WBC (Bld) 33.3 % Normal 19-41 [facility] Comment on above: Performed By: #### L 506.1001, L500.4050, L501.9520, L500.4100, L100.0100 #### [facility] [address] [place], [address] MCH (RBC) [Entitic mass] 29.3 pg Normal 27.0-32.0 [facility] Comment on above: Performed By: #### L 506.1001, L500.4050, L501.9520, L500.4100, L100.0100 #### [facility] [address] [place], [address] MCHC (RBC) [Mass/Vol] 33.4 g/dL Normal 32-36 [facility] Comment on above: Performed By: #### L 506.1001, L500.4050, L501.9520, L500.4100, L100.0100 #### [facility] [address] [place], [address] MCV (RBC) [Entitic vol] 87.7 fL Normal 81-99 [facility] Comment on above: Performed By: #### L 506.1001, L500.4050, L501.9520, L500.4100, L100.0100 #### [facility] [address] [place], [address] Monocytes/100 WBC (Bld) 8.8 % Normal 0-10 [facility] Comment on above: Performed By: #### L 506.1001, L500.4050, L501.9520, L500.4100, L100.0100 #### [facility] [address] [place], [address] Neutrophils/100 WBC (Bld) 51.8 % Normal 47-70 [facility] Comment on above: Performed By: #### L 506.1001, L500.4050, L501.9520, L500.4100, L100.0100 #### [facility] [address] [place], [address] Nucleated RBC (Bld) [#/Vol] 0 10*3/uL Normal 0-5 [facility] Comment on above: Performed By: #### L 506.1001, L500.4050, L501.9520, L500.4100, L100.0100 #### [facility] [address] [place], [address] Platelet mean volume (Bld) [Entitic vol] 9.9 fL Normal 6.2-12.0 [facility] Comment on above: Performed By: #### L 506.1001, L500.4050, L501.9520, L500.4100, L100.0100 #### [facility] [address] [place], [address] Platelets (Bld) [#/Vol] 188 10*3/uL Normal 150-450 [facility] Comment on above: Performed By: #### L 506.1001, L500.4050, L501.9520, L500.4100, L100.0100 #### [facility] [address] [place], [address] RBC (Bld) [#/Vol] 5.19 10*6/uL Normal 4.2-5.4 [facility] Comment on above: Performed By: #### L 506.1001, L500.4050, L501.9520, L500.4100, L100.0100 #### [facility] [address] [place], [address] RDW SD 38.5 fl Normal 35.1-43.9 [facility] Comment on above: Performed By: #### L 506.1001, L500.4050, L501.9520, L500.4100, L100.0100 #### [facility] [address] [place], [address] WBC (Bld) [#/Vol] 5.8 10*3/uL Normal 4.4-11.0 [facility] Comment on above: Performed By: #### L 506.1001, L500.4050, L501.9520, L500.4100, L100.0100 #### [facility] [address] [place], [address] Comprehensive Metabolic [facility] 03-06-2025 Albumin [Mass/Vol] 4.3 g/dL Normal 3.5-5.0 [facility] Comment on above: Performed By: #### L 506.1001, L500.4050, L501.9520, L500.4100, L100.0100 #### [facility] [address] [place], [address] Albumin/Globulin [Mass ratio] 1.6 {ratio} Normal 0.9-2.4 [facility] Comment on above: Performed By: #### L 506.1001, L500.4050, L501.9520, L500.4100, L100.0100 #### [facility] [address] [place], [address] ALK PHOS 101 U/L Normal 35-104 [facility] Comment on above: Performed By: #### L 506.1001, L500.4050, L501.9520, L500.4100, L100.0100 #### [facility] [address] [place], [address] ALT [Catalytic activity/Vol] 25 U/L Normal <=34 [facility] Comment on above: Performed By: #### L 506.1001, L500.4050, L501.9520, L500.4100, L100.0100 #### [facility] [address] [place], [address] AST [Catalytic activity/Vol] 25 U/L Normal <=31 [facility] Comment on above: Performed By: #### L 506.1001, L500.4050, L501.9520, L500.4100, L100.0100 #### [facility] [address] [place], [address] Bilirubin [Mass/Vol] 0.77 mg/dL Normal 0.00-1.30 [facility] Comment on above: Performed By: #### L 506.1001, L500.4050, L501.9520, L500.4100, L100.0100 #### [facility] [address] [place], [address] BUN/CRE 27.4 RATIO High 10-20 [facility] Comment on above: Performed By: #### L 506.1001, L500.4050, L501.9520, L500.4100, L100.0100 #### [facility] [address] [place], [address] Calcium [Mass/Vol] 9.4 mg/dL Normal 7.6-11.0 [facility] Comment on above: Performed By: #### L 506.1001, L500.4050, L501.9520, L500.4100, L100.0100 #### [facility] [address] [place], [address] Chloride [Moles/Vol] 104 mmol/L Normal 98-108 [facility] Comment on above: Performed By: #### L 506.1001, L500.4050, L501.9520, L500.4100, L100.0100 #### [facility] [address] [place], [address] CO2 [Moles/Vol] 25.9 mmol/L Normal 21.0-32.0 [facility] Comment on above: Performed By: #### L 506.1001, L500.4050, L501.9520, L500.4100, L100.0100 #### [facility] [address] [place], [address] Creatinine [Mass/Vol] 0.54 mg/dL Low 0.70-1.20 [facility] Comment on above: Performed By: #### L 506.1001, L500.4050, L501.9520, L500.4100, L100.0100 #### [facility] [address] [place], [address] GAP 10 Normal 5-15 [facility] Comment on above: Performed By: #### L 506.1001, L500.4050, L501.9520, L500.4100, L100.0100 #### [facility] [address] [place], [address] GFR/1.73 sq M.predicted among non-blacks MDRD (S/P/Bld) [Vol rate/Area] 107 mL/min/{1.73_m2} Normal >60 [facility] Comment on above: Result Comment: mL/m in/1.73m2 CKD-EPI Creatinine Equation (2020) Performed By: #### L 506.1001, L500.4050, L501.9520, L500.4100, L100.0100 #### [facility] [address] [place], [address] Globulin (S) [Mass/Vol] 2.8 g/dL Normal 2.2-4.2 [facility] Comment on above: Performed By: #### L 506.1001, L500.4050, L501.9520, L500.4100, L100.0100 #### [facility] [address] [place], [address] Glucose [Mass/Vol] 97 mg/dL Normal 70-99 [facility] Comment on above: Performed By: #### L 506.1001, L500.4050, L501.9520, L500.4100, L100.0100 #### [facility] [address] [place], [address] Potassium [Moles/Vol] 3.8 mmol/L Normal 3.3-5.1 [facility] Comment on above: Performed By: #### L 506.1001, L500.4050, L501.9520, L500.4100, L100.0100 #### [facility] [address] [place], [address] Sodium [Moles/Vol] 140 mmol/L Normal 133-145 [facility] Comment on above: Performed By: #### L 506.1001, L500.4050, L501.9520, L500.4100, L100.0100 #### [facility] [address] [place], [address] T PROT 7.0 g/dL Normal 5.9-8.4 [facility] Comment on above: Performed By: #### L 506.1001, L500.4050, L501.9520, L500.4100, L100.0100 #### [facility] [address] [place], [address] Urea nitrogen [Mass/Vol] 15 mg/dL Normal 4-19 [facility] Comment on above: Performed By: #### L 506.1001, L500.4050, L501.9520, L500.4100, L100.0100 #### [facility] [address] [place], [address] Lipid Profileon 03-06-2025 CHOL:HDL 4.08 Normal [facility] Comment on above: Performed By: #### L 506.1001, L500.4050, L501.9520, L500.4100, L100.0100 #### [facility] [address] [place], [address] Cholesterol [Mass/Vol] 225 mg/dL High <=200 [facility] Comment on above: Result Comment: Chol esterol level, Desirable <200 mg/dL Borderline high cholesterol 200-239 mg/dL High cholesterol >=240 mg/dL Recommendations of the NCEP Adult Treatment Panel for the following risk-cutoff thresholds for the [place] population. Performed By: #### L 506.1001, L500.4050, L501.9520, L500.4100, L100.0100 #### [facility] [address] [place], [address] Cholesterol in HDL [Mass/Vol] 55 mg/dL Normal [facility] Comment on above: Result Comment: Jeanette onal Cholesterol Education Program (NCEP) guidelines: <40 mg/dL: Low HDL-cholesterol (major risk factor for CHD) >= 60 mg/dL: High HDL-cholesterol (negative risk factor for CHD) HDL-cholesterol is affected by a number of factors, e.g. smoking, exercise, hormones, sex and age. Performed By: #### L 506.1001, L500.4050, L501.9520, L500.4100, L100.0100 #### [facility] [address] [place], [address] Cholesterol in LDL [Mass/Vol] 153 mg/dL Normal [facility] Comment on above: Result Comment: Bord nfhgqu=081-275 mg/dL Higher Qehe=148 mg/dL or greater Dejesus Equation 2020 for LDL-C Performed By: #### L 506.1001, L500.4050, L501.9520, L500.4100, L100.0100 #### [facility] [address] [place], [address] Cholesterol in VLDL [Mass/Vol] 19 mg/dL Normal 5-40 [facility] Comment on above: Performed By: #### L 506.1001, L500.4050, L501.9520, L500.4100, L100.0100 #### [facility] [address] [place], [address] Triglyceride [Mass/Vol] 95 mg/dL Normal [facility] Comment on above: Result Comment: The drugs N-Acetylcysteine and Metamizole may falsely depress this assay. Normal range: <150 mg/dL Borderline High: 150-199 mg/dL High: 200-499 mg/dL Very High: >500 mg/dL Performed By: #### L 506.1001, L500.4050, L501.9520, L500.4100, L100.0100 #### [facility] [address] [place], [address] Thyroid Stim Hormone (TSH)on 03-06-2025 TSH 2.380 uIU/mL Normal 0.300-4.200 [facility] Comment on above: Performed By: #### L 506.1001, L500.4050, L501.9520, L500.4100, L100.0100 #### [facility] [address] [place], [address] Vitamin D,25 Hydroxyon 03-06 Vitamin D 25-OH 35.0 ng/mL Normal 30-100 [facility] Comment on above: Result Comment: Lindsay min D Status Deficiency: <20 ng/mL (50nmol/L) Insufficiency: 20-30 ng/mL (50-75 nmol/L) Sufficiency: 30-100 ng/mL (75-250 nmol/L) Toxicity: >100 ng/mL (>250 nmol/L) Performed By: #### L 506.1001, L500.4050, L501.9520, L500.4100, L100.0100 #### [facility] [address] [place], [address] Ship Loader Office Visit Reporton 12-19-2024 Ship Loader Office Visit Report [facility] [address], [address] [place] [address] OFFICE VISIT Date of Service: 12/19/24 MR#: [id number] Acct: [id number] Name: ELZBIETA JENNINGS Rep #: [id number] : 1965 Provider: Dr. 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 Normal [facility] Breast imaging reportOrdered By: Vlad Ignacio on 12-05-2024 Study report [facility] [address] [place] [address] [id number] SCRN MAMM (CAD)W/JOCELINE BILAT MR#: [id number] Acct: [id number] Name: ELZBIETA JENNINGS Rep #: [id number] : 1965 F 59 From: Atul Ignacio MD PCP: Dr. Vega Strickland, DO Status: REG CLI Study:SCRN MAMM (CAD)W/JOCELINE BILAT Date of Exa m: 12/05/24 Exam# [id number] Ordering Dr: Khadijah Hill MD EXAM: SCRN [...] be mailed to the patient. Reading Location: [id number] CC: Dr. Vega Strickland DO; Dr. Khadijah Hill MD ~ Dolly Driver: Signed [facility] SCRN MAMM (CAD)W/JOCELINE BILATo n 12-05-2024 SCRN MAMM (CAD)W/JOCELINE BILAT [facility] [address] [place] [id number] SCRN MAMM (CAD)W/JOCELINE BILAT MR#: [id number] Acct: [id number] Name: ELZBIETA JENNINGS Rep #: [id number] : 1965 F 59 From: Vlad cunningham MD PCP: Dr. Vega Strickland DO Status: REG CLI Study: SCRN MAMM (CAD)W/JOCELINE BILAT Date of Exam: 08/26 Exam# [id number] Ordering Dr: Khadijah Hill EXAM: SCRN MAMM [...] be mailed to the patient. Reading Location: [id number] CC: Dr. Vega Strickland DO; Dr. Khadijah Hill MD Dolly Driver: Signed Normal [facility] Absolute lymphocyte countOrd ered By: Vega Strickland on 03-06-2023 Lymphocytes Auto (Unsp spec) [#/Vol] 1.50 10*3/uL 0.83-4.51 [facility] Basophil percentageOrdered B y: Vega Strickland on 03-06-2023 Basophils/100 WBC (Bld) 1.3 % 0-1 [facility] Bilirubin [Mass/Vol] 0.60 mg/dL 0.20-1.00 [facility] Comment on above: For patients on eltr ombopag therapy, use of [employer] TBIL is not recommended. Chloride [Moles/Vol] 106 mmol/L 98-107 [facility] Cholesterol [Mass/Vol] 237 mg/dL <200 [facility] Comment on above: <200 mg/dL Desirable 200-240 mg/dL Borderline >240 mg/dL High Risk Eosinophils/100 WBC (Bld) 3.8 % 0-5 [facility] Glucose [Mass/Vol] 107 mg/dL 74-106 [facility] Comment on above: Fasting Glucose resu lt from 100 to 125 mg/dL suggests IMPAIRED HOMEOSTASIS per A.D.A. criteria. Neutrophils (Bld) [#/Vol] 3.8 10*3/uL 2.0-7.7 [facility] Neutrophils/100 WBC (Bld) 63.1 % 47-70 [facility] Potassium [Moles/Vol] 3.8 mmol/L 3.5-5.1 [facility] Protein [Mass/Vol] 7.5 g/dL 6.4-8.2 [facility] Sodium [Moles/Vol] 140 mmol/L 136-145 [facility] Triglyceride [Mass/Vol] 104 mg/dL <199 [facility] Comment on above: The drugs N-Acetylcy steine and Metamizole may falsely depress this assay.Serum Triglycerides Reference Interval Normal <150 mg/dL Borderline high 150 - 199 mg/dL High 200 - 499 mg/dL Very High > or = 500 mg/dL WBC (Bld) [#/Vol] 6.1 10*3/uL 4.4-11.0 [facility] Blood erythrocytes count (nu mber/volume)Ordered By: Vega Strickland on 03-06-2023 RBC (Bld) [#/Vol] 5.34 10*6/uL 4.2-5.4 [facility] Blood hemoglobin measurement (mass/volume)Ordered By: Vega Strickland on 03-06-2023 Hemoglobin (Bld) [Mass/Vol] 15.9 g/dL 12.0-15.0 [facility] Blood lymphocytes/100 leukoc ytesOrdered By: Vega Strickland on 03-06-2023 Lymphocytes/100 WBC (Bld) 24.6 % 19-41 [facility] Blood monocytes/100 leukocyt esOrdered By: Vega Strickland on 03-06-2023 Monocytes/100 WBC (Bld) 6.9 % 0-10 [facility] Blood platelet mean volumeOr dered By: Vega Strickland on 03-06-2023 Platelet mean volume (Bld) [Entitic vol] 10.3 fL 6.2-12.0 [facility] Determination of erythrocyte mean corpuscular volume (MCV)Ordered By: Vega Strickland on 03-06-2023 MCV (RBC) [Entitic vol] 90.1 fL 81-99 [facility] Hematocrit Auto (Bld) [Volum e fraction]Ordered By: Vega Strickland on 03-06-2023 Hematocrit (Bld) [Volume fraction] 48.1 % 37-47 [facility] - Chemistry and C hemistry - challengeOrdered By: Vega Strickland on 03-06-2023 ALP [Catalytic activity/Vol] 105 U/L 45-117 [facility] ALT [Catalytic activity/Vol] 32 U/L 13-56 [facility] CO2 [Moles/Vol] 31.0 mmol/L 21.0-32.0 [facility] Globulin (S) [Mass/Vol] 3.6 g/dL 2.2-4.2 [facility] Urea nitrogen/Creatinine [Mass ratio] 22.6 mg/mg 10-20 [facility] - Hematology and Cell countsOrdered By: Vega Strickland on 03-06-2023 Erythrocyte distribution width (RBC) [Entitic vol] 40.3 fL 35.1-43.9 [facility] Erythrocyte distribution width (RBC) [Ratio] 12.3 % 11.6-14.6 [facility] Immature granulocytes/100 WBC (Bld) 0.300 % 0.0-0.9 [facility] Comment on above: IG% - Immature Granu locytes (promyelocytes, myelocytes and metamyelocytes) > 1% indicates that a LEFT SHIFT is Present. MCH (RBC) [Entitic mass] 29.8 pg 27.0-32.0 [facility] Nucleated RBC/100 WBC (Bld) [Ratio] 0 % 0-5 [facility] MCHC Auto (RBC) [Mass/Vol]Or dered By: Vega Strickland on 03-06-2023 MCHC (RBC) [Mass/Vol] 33.1 g/dL 32-36 [facility] No Panel InformationOrdered By: eVga Strickland on 03-06-2023 Estimated GFR (MDRD) Amer 128 mL/min >60 [facility] Comment on above: GFR Calc Estimated GFR (MDRD) Non-Af Amer 106 mL/min >60 [facility] Comment on above: Non- GFR Calc Vitamin D 25-Hydroxy 42.7 ng/mL [facility] Comment on above: Vitamin D 25(OH) Sta tus Range Deficiency <20 ng/mL (50nmol/L) Insufficiency 20 - 30 ng/mL (50 - 75 nmol/L) Sufficiency 30 - 100 ng/mL (75 - 250 nmol/L) Toxicity >100 ng/mL (>250 nmol/L) Platelets bldOrdered By: Chasidy Strickland on 03-06-2023 Platelets (Bld) [#/Vol] 212 10*3/uL 150-450 [facility] Serum or plasma albumin tomer urement (mass/volume)Ordered By: Vega Strickland on 03-06-2023 Albumin [Mass/Vol] 3.9 g/dL 3.2-5.0 [facility] Serum or plasma albumin/glob ulin mass ratioOrdered By: Vega Strickland on 03-06-2023 Albumin/Globulin [Mass ratio] 1.1 {ratio} 0.9-2.4 [facility] Serum or plasma calcium tomer urement (mass/volume)Ordered By: Vega Strickland on 03-06-2023 Calcium [Mass/Vol] 9.1 mg/dL 8.5-10.1 [facility] Serum or plasma cholesterol in HDL measurement (mass/volume)Ordered By: Vega Strickland on 03-06-2023 Cholesterol in HDL [Mass/Vol] 57 mg/dL >40 [facility] Comment on above: The drugs N-Acetylcy steine and Metamizole may falsely depress this assay. Reference Range HDL <40 mg/dL Low HDL Cholesterol HDL >or= 60 mg/dL High HDL Cholesterol Serum or plasma cholesterol in VLDL measurement (mass/volume)Ordered By: Vega Strickland on 03-06-2023 Cholesterol in VLDL [Mass/Vol] 21 mg/dL 5-40 [facility] Serum or plasma creatinine m easurement (mass/volume)Ordered By: Vega Strickland on 03-06-2023 Creatinine [Mass/Vol] 0.62 mg/dL 0.55-1.02 [facility] Comment on above: The validity of the calculated GFR & GFRAA in patients over 70 years has not been determined. Clinical correlation is essential. Serum or plasma low density lipoprotein (LDL) cholesterol measurement (mass/volume)Ordered By: Vega Strickland on 03-06-2023 Cholesterol in LDL [Mass/Vol] 159 mg/dL 0-130 [facility] Serum or plasma urea nitroge n measurement (mass/volume)Ordered By: Vega Strickland on 03-06-2023 Urea nitrogen [Mass/Vol] 14 mg/dL 7-18 [facility] Thin prep Papanicolaou smear with manual screeningOrdered By: Vega Strickland on 03-06-2023 Thin prep Papanicolaou smear with manual screening 18 U/L 15-37 [facility] Thin prep Papanicolaou smear with manual screening 3 5-15 [facility] Cervical or vagninal specime n microscopic examination by cytology stain (reported asOrdered By: Khadijah Hill on 12-26-2022 Cytology report Cyto stain Doc (Cvx/Vag) Comment . [facility] Comment on above: The Pap smear is [...] DNA Probe+sig amp Ql (Cvx) Negative Negative [facility] Comment on above: This nucleic acid am plification test detects fourteen high- risk HPV types (16,18,31,33,35,39,45,51,52,56,58,59,66,68)without differentiation. Laboratory - CytologyOrdered By: Khadijah Hill on 12-26-2022 Invoice Control Clerk Cyto stain Nom (Cvx/Vag) [ID] Comment . [facility] Comment on above: Davonte De La Paz totechnologist (ASCP) Laboratory - Miscellaneous t estsOrdered By: Khadijah Hill on 12-26-2022 Service comment (Unsp spec) [Interp] Comment . [facility] Comment on above: This liquid based Th inPrep(R) pap test was screened withthe use of an image guided system. Service comment (Unsp spec) [Interp] . . [facility] Liquid-based cerv Pap + CT/G C by GERALD w reflex to high-risk HPV for ASCUSOrdered By: Khadijah Hill on 12-26-2022 Cytology report Cyto stain.thin prep Doc (Cvx/Vag) Comment . [facility] Comment on above: Criteria not met, HP V Genotype not performed.Performed at: [facility] [id number] [place], [place] [id number] Director: Galo Chi MD, Phone: [phone] at: - [facility] [place], [place] [id number] Director: Cheryl Mesa MD, Phone: [phone] at: =G - [facility] [address] [place], [place] [id number] Director: Cheryl Mesa MD, Phone: [phone] No Panel InformationOrdered By: Khadijah Hill on 12-26-2022 Pathology report final diagnosis Narrative Comment . [facility] Comment on above: NEGATIVE FOR INTRAEP ITHELIAL LESION OR MALIGNANCY.CELLULAR CHANGES ASSOCIATED WITH ATROPHY ARE PRESENT. Basophil percentageon 2021 Cholesterol [Mass/Vol] 238 mg/dL <200 [facility] Work Phone: Comment on above: <200 mg/dL Desirable 200-240 mg/dL Borderline >240 mg/dL High Risk Triglyceride [Mass/Vol] 101 mg/dL <199 [facility] Work Phone: Comment on above: The drugs N-Acetylcy steine and Metamizole may falsely depress this assay.Serum Triglycerides Reference Interval Normal <150 mg/dL Borderline high 150 - 199 mg/dL High 200 - 499 mg/dL Very High > or = 500 mg/dL Serum or plasma cholesterol in HDL measurement (mass/volume)on 03-14-2022 Cholesterol in HDL [Mass/Vol] 53 mg/dL >40 [facility] Work Phone: Comment on above: The drugs N-Acetylcy steine and Metamizole may falsely depress this assay. Reference Range HDL <40 mg/dL Low HDL Cholesterol HDL >or= 60 mg/dL High HDL Cholesterol Serum or plasma cholesterol in VLDL measurement (mass/volume)on 03-14-2022 Cholesterol in VLDL [Mass/Vol] 20 mg/dL 5-40 [facility] Work Phone: Serum or plasma low density lipoprotein (LDL) cholesterol measurement (mass/volume)on 03-14-2022 Cholesterol in LDL [Mass/Vol] 165 mg/dL 0-130 [facility] Work Phone: Office Visit: Annualon 11-17 Documentation of current medications (procedure) Done Invalid Interpretation Code [facility] Fall risk assessment No Invalid Interpretation Code [facility] Protein mass conc Done [facility] Tobacco smoking status NHIS Never Invalid Interpretation Code [facility] Tobacco smoking status NHIS Never smoker [facility] Tobacco use CPHS Never smoker Invalid Interpretation Code 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 She was [...] and regular exercise ---150 min/wkfollow up with carton maker for drift miner exam, including breast exam--per patientrequestFrank MOR Liu III MD 10/31/2016 1:48 PM SignedPLAN:healthy diet and regular exercise ---150 min/wkfollow up with carton maker for drift miner exam, including breast examFrank Maco Stanley III MDReferring Provider: RINKU STANLEY III [[id number]]Allergies As of Date: 10/31/2016 Noted Allergy ReactionAUGMENTIN [...] regular exercise ---150 min/wk follow up with carton maker for drift miner exam, including breast exam Rinku Stanley III MDEncounter Number: [id number] Status:Closed by RINKU STANLEY III, MD on 10/31/16 Normal [facility] PROGRESSon 10-31-2016 PROGRESS HNO ID: [id number]: Rinku Stanley IIIService: (none)Author Type: PhysicianType: Progress [...] Chart review shows that she is 1pound director supplier quality than 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 She [...] and regular exercise ---150 min/wkfollow up with carton maker for drift miner exam, including breast exam--perpatient requestFrank MOR Liu MD [facility] Office Visit: Annualon 10-20 MG Breast screening Normal Bilateral Invalid Interpretation Code [facility] Office Visit: Annualon 11-04 General categories Cyto stain Interp (Cervical or vaginal smear or scraping) Normal Invalid Interpretation Code [facility] Vital Signs Date Time Vital Sign Value Performing Clinician Faci josh 12-19-2024 08:44-0400 Body height 162.[address] Vega Strickland DO Work Phone: [facility] 12-19-2024 08:44-0400 Body mass index (BMI) [Ratio] 22.8 kg/m2 Dr. Vega Strickland DO Work Phone: [facility] 12-19-2024 08:44-0400 Body weight 60.[address] Vega Strickland DO Work Phone: [facility] 12-19-2024 08:44-0400 Diastolic blood pressure 87 mm[Hg] Dr. Vega Strickland DO Work Phone: [facility] 12-19-2024 08:44-0400 Systolic blood pressure 130 mm[Hg] Dr. Vega Strickland DO Work Phone: [facility] 12-26-2022 09:14-0400 Body height 162.[address] Vega Strickland Work Phone: [facility] 12-26-2022 09:09-0400 Body mass index (BMI) [Ratio] 23.5 kg/m2 Dr. Vega Strickland Work Phone: [facility] 12-26-2022 09:09-0400 Body weight 62.[address] Vega Strickland Work Phone: [facility] 12-26-2022 09:09-0400 Diastolic blood pressure 88 mm[Hg] Dr. Vega Strickland Work Phone: [facility] 12-26-2022 09:09-0400 Systolic blood pressure 128 mm[Hg] Dr. Vega Strickland Work Phone: [facility] 12-23-2021 10:16-0400 Body height 162.[address] Vega Strickland Work Phone: [facility] Work Phone: 12-23-2021 10:16-0400 Body mass index (BMI) [Ratio] 23.8 kg/m2 Dr. Vega Strickland Work Phone: [facility] Work Phone: 12-23-2021 10:16-0400 Body weight 62.[address] Vega Strickland Work Phone: [facility] Work Phone: 12-23-2021 10:16-0400 Diastolic blood pressure 90 mm[Hg] Dr. Vega Strickland Work Phone: [facility] Work Phone: 12-23-2021 10:16-0400 Systolic blood pressure 130 mm[Hg] Dr. Vega Strickland Work Phone: [facility] Work Phone: 11-17-2016 08:06-0400 BMI (Body Mass Index) 22.49 kg/m2 Khadijah Hill MD [facility] 11-17-2016 08:06-0400 BP Diastolic 81 mm[Hg] Khadijah Hill MD [facility] 11-17-2016 08:06-0400 BP Systolic 117 mm[Hg] Khadijah Hill MD [facility] 11-17-2016 08:06-0400 Height 161.29 cm Khadijah Hill MD [facility] 11-17-2016 08:06-0400 Pulse (Heart Rate) 80 /min Khadijah Hill MD [facility] 11-17-2016 08:06-0400 Respiratory Rate 16 /min Khadijah Hill MD [facility] 11-17-2016 08:060400 Weight 58.51 kg Khadijah Hill MD [facility] Encounters Encounter Date Encounter Type Care Provider Facility Start: 03-15-2025 End: 03-15-2025 ambulatory [facility] Start: 03-09-2025 End: 03-09-2025 ambulatory [facility] [place] Start: 03-06-2025 Encounter for genera l adult medical examination without abnormal findings [facility] Start: 03-06-2025 ambulatory [facility] Facility: [facility] Start: 12-19-2024 End: 12-19-[address] Khadijah Hill MD -[facility] Work Phone: Start: 12-19-2024 End: 12-19-[address] Khadijah Hill MD [facility] Start: 12-19-2024 End: 12-19-[address] Vega Strickland DO Work Phone: -[facility] Start: 12-05-2024 End: 12-05-[address] Vega Strickland DO Work Phone: -[facility] Start: 12-05-2024 End: 12-05-[address] Khadijah Hill MD -[facility] Work Phone: Start: 12-05-2024 End: 12-05-2024 ambulatory Khadijah Hill Facility:[facility] Start: 05-01-2023 End: 05-01-2023 ambulatory [facility] Work Phone: Start: 05-01-2023 End: 05-01-2023 Discharged Recurring [facility]Occ[facility]ational [facility] Work Phone: Start: 03-06-2023 End: 03-06-[address] Vega Strickland Work Phone: [facility] Work Phone: Start: 03-06-2023 End: 03-06-[address] Vega Strickland Work Phone: [facility]Laboratory Work Phone: Start: 12-26-2022 End: 12-26-[address] Vega Strickland Work Phone: [facility] Work Phone: Start: 12-26-2022 End: 12-26-[address] [facility] Strickland [facility] Work [facility]: Start: 12-26-2022 End: 12-26-[address] Vega Strickland Work Phone: [facility] Work Phone: Start: 12-02-2022 End: 12-02-2022 Discharged Recurring [facility] Work Phone: Start: 12-01-2022 End: 12-01-2022 ambulatory [facility] Work Phone: Start: 12-01-2022 End: 12-01-2022 Patient encounter procedure [facility] Work Phone: Start: 03-14-2022 End: 03-14-[address] Vega Strickland Work Phone: [facility] Work Phone: Start: 03-14-2022 End: 03-14-[address] Vega Strickland Work Phone: [facility] Jhonny Devonte [facility] Start: 12-23-2021 End: 12-23-[address] Vega Strickland Work Phone: [facility] Start: 11-27-2021 End: 11-27-2021 Patient encounter procedure [facility] Start: 10-31-2016 End: 10-31-2016 Ambulatory RINKU A CEBUL [facility] Procedures Date Procedure Procedure Detail Performing Clinician Start: 12-05-[address] Vega Strickland DO Work Phone: Start: 12-01-2022 Screening mammography Start: 11-27-2021 Screening mammography Start: 11-17-2016 End: 11-18-2016 Gynecologic examination Encounter for gynecological examination (general) (routine) with abnormal findings Khadijah Hill MD Plan of Treatment Date Care Activity Detail Author Start: 12-26-2022 Liquid based cervica l cytology screening [facility] Start: 11-19-2016 End: 11-20-2016 Transvaginal us, non-ob US Transvaginal [facility] Start: 11-19-2016 End: 11-20-2016 Us exam, pelvic, complete US Pelvis [facility] mens [facility] Start: 11-17-2016 End: 11-17-2016 Appointment [facility]ointment [facility] Start: 11-17-2016 End: 11-17-2016 Transvaginal us, non-ob US Transvaginal [facility] Start: 11-17-2016 End: 11-17-2016 Us exam, pelvic, complete US Pelvis [facility] MG Breast - bilatera l Screening [facility] Work Phone: Path report.final Dx Spec [facility] Payers Date Payer Category Payer Self-pay [id number] 2024 Unknown [id number] Unknown [id number] [id number] [id number] Unknown [id number] [id number] Unknown [id number] [id number] [id number] Unknown [id number] [id number] [id number] Unknown [id number] [id number] [id number] Social History Date Type Detail Facility Start: 12-20-2020 End: 12-26-2022 Tobacco smoking status NHIS Unknown if ever smoked [facility] Start: 1965 Sex Assigned At Female [facility] Start: 08-15-2024 Tobacco smoking stat us NHIS Never smoked tobacco (finding) [facility] Clinical Note 12-26-2022 Note Date & Type Note Facility 12-26-2022 Note [facility] Pap Smear Specimen Adequacy December 26, 2022 11:28am Comment . Satisfactory for evaluation. Endocervical and/or squamous metaplasticcells (endocervical component) are present. Comment on above: Satisfactory for kenya luation. Endocervical and/or squamous metaplasticcells (endocervical component) are present. 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 Intramural uterine fibroid c hronic Encounter for routine gyneco logical examination noneactive [facility] Work Phone: Evaluation note Note Date & Type Note Facility Evaluation note Diagnosis Onset Date Resolution Cystocele and rectocele with incomplete uterovaginal prolapse acute December 8:37am Intramural uterine fibroid chronic December 19 8:37am Windsor-Walker grade 3 cystocele deleted December 19 8:37am Windsor-Walker grade 3 rectocele deleted December 19 8:37am Encounter for routine gynecological examination noneactive December 19 8:37am [facility] Work Phone: Reason for referral (narrative) Note Date & Type Note Facility Reason for referral (narrative) No reason for referral information available [facility] Work Phone: Summary Purpose Family History No [...] Will Yes May 28 9:11am 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 UCL REPAIR. PT HAS RX Chief Complaint SCREENING CTS R UPPER. UCL REPAIR. 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 Intramural uterine fibroid Encounter for routine gynecological examination Chief Complaint L HAND PT HAS RX Chief Complaint Admit Date screen for breast cancer December 05 7:09am Chief Complaint Admit Date screen for breast cancer December 05 7:09am Annual (FORESTRY HUNTER) December 19, 2024 8: 37am Reason for Visit Admit Date Cystocele and rectocele with incomplete uterovaginal prolapse December 19, 2024 8:37am Intramural uterine fibroid December 19, 2024 8:37am Windsor-Walker grade 3 cystocele December 192024 8:37am Windsor-Walker grade 3 rectocele December 192024 8:37am Encounter for routine gynecological exam ination December 19, 2024 8:37am Additional Source Comments INFORMATION SOURCE (unrecogn ized section and content) DATE CREATED AUTHOR 10/28/2017 [facility] DATE CREATED AUTHOR AUTHOR'S ORGANIZ ATION 03/16/2025 [facility] Goals (unrecognized section and content) Goals may [...] Status: Inactive Member Role Status Dates Dr. Vgea Strickland DO Primary Care Provider Active Dr. [...] BE BASED ON THE PRIMARY CLINICAL RECORDS. [facility]. provides no warranty or guarantee of the accuracy or completeness of information in this document.
--- OUTSIDE RECORDS SUMMARY | 2025-03-24 04:39 | XMS RPT_ITS | CCD ---
Author Organization [facility] Care Team Providers Care Volleyball Assembler Name Role Phone Sherrie Kovacs Maco Unavailable Unavailab Khadijah Gray MD Unavailable [phone] CEBUL IIIRINKU Unavailable Unavailable CEBUL III, RINKU A Unavailable Unavailable Khadijah Hill MD Unavailable [phone] Dr. Vega Strickland Primary Care Provider [phone] Dr[address] Vega Strickland Referring Provider Dr. Khadijah Hill Attending Provider [phone] Dr. Vega Strickland Primary Care Provider [phone] Dr. Vega Strickland Referring Provider [phone] Dr. Khadijah Hill Attending Provider [phone] [...] amoxicillin / clavulanate drug allergy 7 N/V [facility] (3 sources) Sulfonamides (Antibiotic) drug allergy 7 HIves [facility] (10 sources) Sulfonamides (Antibiotic); Translations: [SULFA (SULFONAMIDE ANTIBIOTICS)] Propensity to adverse reactions to drug (disorder) 6 [facility], [facility] Repository (1 source) AMOXICILLIN-POT CLAVULANATE; Translations: [AMOXICILLIN-POT CLAVULANATE] Propensity to adverse reactions to drug (disorder) 6 [facility] Repository (1 source) OTHER; Translations: [OTHER] Propensity to adverse reactions (disorder) 6 [facility] Repository (8 sources) Amoxicillin Drug Allergy 1 Vomiting [facility] (8 sources) Clavulanate Drug Allergy 1 [facility] (1 source) Amoxicillin Drug Allergy 5 [facility] Repository (1 source) Clavulanate Drug Allergy 5 [facility] Repository Medications Current Medications Medication Drug Class(es) [...] ALLERGY 180 MG TABS PRN FEXOFENADINE HCL [id number] Khadijah Hill MD Herbal Drugs capsule (2 [...] 50 MCG /ACT SUSP PRN MOMETASONE FUROATE [id number] Khadijah Hill MD Start: 11-17-2016 NASONEX 50 MCG /ACT SUSP PRN MOMETASONE FUROATE [id number] Khadijah Hill MD Multivitamin preparation (6 sources) [...] Test Name Value Interpretation Reference Range Facility Ophthalmic Lens Inspector Office Visit Reporton 03-15-2025 Ophthalmic Lens Inspector Office Visit Report [facility] [address], [address] [place] [address] OFFICE VISIT Date of Service: 03/15/25 MR#: [id number] Acct: [id number] Name: ELZBIETA JENNINGS Rep #: [id number] : 1965 Provider: MISSY Dela Cruz Age/Sex: 59/F Location: [facility] Status: Signed Intake Vital Signs 03/09/25 10:22 03/15/25 15:48 Height 5 ft 4 in 5 ft 4 in Weight: 136 lb 5 oz 135 lb BMI 23.3 23.1 BP 124/81 H 136/88 H Intake Visit Reasons: pessary causing pain 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 Normal [facility] Ophthalmic Lens Inspector Office Visit Reporton 03-09-2025 Ophthalmic Lens Inspector Office Visit Report [facility] [address], [address] [place] [address] OFFICE VISIT Date of Service: 03/09/25 MR#: [id number] Acct: [id number] Name: ELZBIETA JENNINGS Rep #: [id number] : 1965 Provider: MISSY Dela Cruz Age/Sex: 59/F Location: [facility] [place] [place] Status: Signed Intake Vital Signs 12/19/24 08:44 03/09/25 10:22 Height 5 ft 4 in 5 ft 4 in Weight: 133 lb 8 oz 136 lb 5 oz BMI 22.8 23.3 BP 130/87 H 124/81 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 Normal [facility] CBC W/Diff, Automatedon 11-0 -2024 Absolute Lymph 1.93 X10 3/uL Normal 0.83-4.51 [facility] Comment on above: Performed By: #### L 506.1001, L500.4050, L501.9520, L500.4100, L100.0100 #### [facility] Laboratory [address] [place], [address] Absolute Neut 3.0 X10 3/uL Normal 2.0-7.7 [facility] Comment on above: Performed By: #### L 506.1001, L500.4050, L501.9520, L500.4100, L100.0100 #### [facility] Laboratory [address] [place], [address] Basophils/100 WBC (Bld) 1.2 % High 0-1 [facility] Comment on above: Performed By: #### L 506.1001, L500.4050, L501.9520, L500.4100, L100.0100 #### [facility] Laboratory [address] [place], [address] Eosinophils/100 WBC (Bld) 4.7 % Normal 0-5 [facility] Comment on above: Performed By: #### L 506.1001, L500.4050, L501.9520, L500.4100, L100.0100 #### [facility] Laboratory [address] [place], [address] Erythrocyte distribution width (RBC) [Ratio] 12.1 % Normal 11.6-14.6 [facility] Comment on above: Performed By: #### L 506.1001, L500.4050, L501.9520, L500.4100, L100.0100 #### [facility] Laboratory [address] [place], [address] Hematocrit (Bld) [Volume fraction] 45.5 % Normal 37-47 [facility] Comment on above: Performed By: #### L 506.1001, L500.4050, L501.9520, L500.4100, L100.0100 #### [facility] Laboratory [address] [place], [address] Hemoglobin (Bld) [Mass/Vol] 15.2 g/dL High 12.0-15.0 [facility] Comment on above: Performed By: #### L 506.1001, L500.4050, L501.9520, L500.4100, L100.0100 #### [facility] Laboratory [address] [place], [address] IG% 0.200 Normal 0.0-0.9 [facility] Comment on above: Result Comment: IG% - Immature Granulocytes (promyelocytes, myelocytes and metamyelocytes) > 1% indicates that a LEFT SHIFT is Present. Performed By: #### L 506.1001, L500.4050, L501.9520, L500.4100, L100.0100 #### [facility] Laboratory [address] [place], [address] Lymphocytes/100 WBC (Bld) 33.3 % Normal 19-41 [facility] Comment on above: Performed By: #### L 506.1001, L500.4050, L501.9520, L500.4100, L100.0100 #### [facility] Laboratory [address] [place], [address] MCH (RBC) [Entitic mass] 29.3 pg Normal 27.0-32.0 [facility] Comment on above: Performed By: #### L 506.1001, L500.4050, L501.9520, L500.4100, L100.0100 #### [facility] Laboratory [address] [place], [address] MCHC (RBC) [Mass/Vol] 33.4 g/dL Normal 32-36 [facility] Comment on above: Performed By: #### L 506.1001, L500.4050, L501.9520, L500.4100, L100.0100 #### [facility] Laboratory [address] [place], [address] MCV (RBC) [Entitic vol] 87.7 fL Normal 81-99 [facility] Comment on above: Performed By: #### L 506.1001, L500.4050, L501.9520, L500.4100, L100.0100 #### [facility] Laboratory [address] [place] [place], [address] Monocytes/100 WBC (Bld) 8.8 % Normal 0-10 [facility] Comment on above: Performed By: #### L 506.1001, L500.4050, L501.9520, L500.4100, L100.0100 #### [facility] Laboratory [address] [place], [address] Neutrophils/100 WBC (Bld) 51.8 % Normal 47-70 [facility] Comment on above: Performed By: #### L 506.1001, L500.4050, L501.9520, L500.4100, L100.0100 #### [facility] Laboratory [address] [place] [place], [address] Nucleated RBC (Bld) [#/Vol] 0 10*3/uL Normal 0-5 [facility] Comment on above: Performed By: #### L 506.1001, L500.4050, L501.9520, L500.4100, L100.0100 #### [facility] Laboratory [address] [place] [place], [address] Platelet mean volume (Bld) [Entitic vol] 9.9 fL Normal 6.2-12.0 [facility] Comment on above: Performed By: #### L 506.1001, L500.4050, L501.9520, L500.4100, L100.0100 #### [facility] Laboratory [address] [place], [address] Platelets (Bld) [#/Vol] 188 10*3/uL Normal 150-450 [facility] Comment on above: Performed By: #### L 506.1001, L500.4050, L501.9520, L500.4100, L100.0100 #### [facility] Laboratory [address] [place], [address] RBC (Bld) [#/Vol] 5.19 10*6/uL Normal 4.2-5.4 [facility] Comment on above: Performed By: #### L 506.1001, L500.4050, L501.9520, L500.4100, L100.0100 #### [facility] Laboratory [address] [place], [address] RDW SD 38.5 fl Normal 35.1-43.9 [facility] Comment on above: Performed By: #### L 506.1001, L500.4050, L501.9520, L500.4100, L100.0100 #### [facility] Laboratory [address] [place], [address] WBC (Bld) [#/Vol] 5.8 10*3/uL Normal 4.4-11.0 [facility] Comment on above: Performed By: #### L 506.1001, L500.4050, L501.9520, L500.4100, L100.0100 #### [facility] Laboratory [address] [place], [address] Comprehensive Metabolic [facility] 03-06-2025 Albumin [Mass/Vol] 4.3 g/dL Normal 3.5-5.0 [facility] Comment on above: Performed By: #### L 506.1001, L500.4050, L501.9520, L500.4100, L100.0100 #### [facility] Laboratory [address] [place], [address] Albumin/Globulin [Mass ratio] 1.6 {ratio} Normal 0.9-2.4 [facility] Comment on above: Performed By: #### L 506.1001, L500.4050, L501.9520, L500.4100, L100.0100 #### [facility] Laboratory [address] [place], [address] ALK PHOS 101 U/L Normal 35-104 [facility] Comment on above: Performed By: #### L 506.1001, L500.4050, L501.9520, L500.4100, L100.0100 #### [facility] Laboratory [address] [place], [address] ALT [Catalytic activity/Vol] 25 U/L Normal <=34 [facility] Comment on above: Performed By: #### L 506.1001, L500.4050, L501.9520, L500.4100, L100.0100 #### [facility] Laboratory [address] [place], [address] AST [Catalytic activity/Vol] 25 U/L Normal <=31 [facility] Comment on above: Performed By: #### L 506.1001, L500.4050, L501.9520, L500.4100, L100.0100 #### [facility] [address] [place], [address] Bilirubin [Mass/Vol] 0.77 mg/dL Normal 0.00-1.30 [facility] Comment on above: Performed By: #### L 506.1001, L500.4050, L501.9520, L500.4100, L100.0100 #### [facility] [address] [place], [address] BUN/CRE 27.4 RATIO High 10-20 [facility] Comment on above: Performed By: #### L 506.1001, L500.4050, L501.9520, L500.4100, L100.0100 #### [facility] Laboratory [address] [place], [address] Calcium [Mass/Vol] 9.4 mg/dL Normal 7.6-11.0 [facility] Comment on above: Performed By: #### L 506.1001, L500.4050, L501.9520, L500.4100, L100.0100 #### [facility] [address] [place], [address] Chloride [Moles/Vol] 104 mmol/L Normal 98-108 [facility] Comment on above: Performed By: #### L 506.1001, L500.4050, L501.9520, L500.4100, L100.0100 #### [facility] Laboratory [address] [place], [address] CO2 [Moles/Vol] 25.9 mmol/L Normal 21.0-32.0 [facility] Comment on above: Performed By: #### L 506.1001, L500.4050, L501.9520, L500.4100, L100.0100 #### [facility] Laboratory [address] [place], [address] Creatinine [Mass/Vol] 0.54 mg/dL Low 0.70-1.20 [facility] Comment on above: Performed By: #### L 506.1001, L500.4050, L501.9520, L500.4100, L100.0100 #### [facility] [address] [place], [address] GAP 10 Normal 5-15 [facility] Comment on above: Performed By: #### L 506.1001, L500.4050, L501.9520, L500.4100, L100.0100 #### [facility] Laboratory [address] [place], [address] GFR/1.73 sq M.predicted among non-blacks MDRD (S/P/Bld) [Vol rate/Area] 107 mL/min/{1.73_m2} Normal >60 [facility] Comment on above: Result Comment: mL/m in/1.73m2 CKD-EPI Creatinine Equation (2020) Performed By: #### L 506.1001, L500.4050, L501.9520, L500.4100, L100.0100 #### [facility] Laboratory [address] [place], [address] Globulin (S) [Mass/Vol] 2.8 g/dL Normal 2.2-4.2 [facility] Comment on above: Performed By: #### L 506.1001, L500.4050, L501.9520, L500.4100, L100.0100 #### [facility] Laboratory [address] [place], [address] Glucose [Mass/Vol] 97 mg/dL Normal 70-99 [facility] Comment on above: Performed By: #### L 506.1001, L500.4050, L501.9520, L500.4100, L100.0100 #### [facility] Laboratory [address] [place], [address] Potassium [Moles/Vol] 3.8 mmol/L Normal 3.3-5.1 [facility] Comment on above: Performed By: #### L 506.1001, L500.4050, L501.9520, L500.4100, L100.0100 #### [facility] Laboratory [address] [place], [address] Sodium [Moles/Vol] 140 mmol/L Normal 133-145 [facility] Comment on above: Performed By: #### L 506.1001, L500.4050, L501.9520, L500.4100, L100.0100 #### [facility] Laboratory [address] [place], [address] T PROT 7.0 g/dL Normal 5.9-8.4 [facility] Comment on above: Performed By: #### L 506.1001, L500.4050, L501.9520, L500.4100, L100.0100 #### [facility] [address] [place], [address] Urea nitrogen [Mass/Vol] 15 mg/dL Normal 4-19 [facility] Comment on above: Performed By: #### L 506.1001, L500.4050, L501.9520, L500.4100, L100.0100 #### [facility] Laboratory [address] [place], [address] Lipid Profileon 03-06-2025 CHOL:HDL 4.08 Normal [facility] Comment on above: Performed By: #### L 506.1001, L500.4050, L501.9520, L500.4100, L100.0100 #### [facility] Laboratory [address] [place], [address] Cholesterol [Mass/Vol] 225 mg/dL High <=200 [facility] Comment on above: Result Comment: Chol esterol level, Desirable <200 mg/dL Borderline high cholesterol 200-239 mg/dL High cholesterol >=240 mg/dL Recommendations of the NCEP Adult Treatment Panel for the following risk-cutoff thresholds for the [place] population. Performed By: #### L 506.1001, L500.4050, L501.9520, L500.4100, L100.0100 #### [facility] Laboratory [address] [place], [address] Cholesterol in HDL [Mass/Vol] 55 mg/dL Normal [facility] Comment on above: Result Comment: Jeanette onal Cholesterol Education Program (NCEP) guidelines: <40 mg/dL: Low HDL-cholesterol (major risk factor for CHD) >= 60 mg/dL: High HDL-cholesterol (negative risk factor for CHD) HDL-cholesterol is affected by a number of factors, e.g. smoking, exercise, hormones, sex and age. Performed By: #### L 506.1001, L500.4050, L501.9520, L500.4100, L100.0100 #### [facility] Laboratory [address] [place], [address] Cholesterol in LDL [Mass/Vol] 153 mg/dL Normal [facility] Comment on above: Result Comment: Bord jzaslr=503-137 mg/dL Higher Hajr=602 mg/dL or greater Dejesus Equation 2020 for LDL-C Performed By: #### L 506.1001, L500.4050, L501.9520, L500.4100, L100.0100 #### [facility] Laboratory [address] [place], [address] Cholesterol in VLDL [Mass/Vol] 19 mg/dL Normal 5-40 [facility] Comment on above: Performed By: #### L 506.1001, L500.4050, L501.9520, L500.4100, L100.0100 #### [facility] Laboratory [address] [place], [address] Triglyceride [Mass/Vol] 95 mg/dL Normal [facility] Comment on above: Result Comment: The drugs N-Acetylcysteine and Metamizole may falsely depress this assay. Normal range: <150 mg/dL Borderline High: 150-199 mg/dL High: 200-499 mg/dL Very High: >500 mg/dL Performed By: #### L 506.1001, L500.4050, L501.9520, L500.4100, L100.0100 #### [facility] Laboratory [address] [place], [address] Thyroid Stim Hormone (TSH)on 03-06-2025 TSH 2.380 uIU/mL Normal 0.300-4.200 [facility] Comment on above: Performed By: #### L 506.1001, L500.4050, L501.9520, L500.4100, L100.0100 #### [facility] [address] [place], [address] Vitamin D,25 Hydroxyon 03-06 Vitamin D 25-OH 35.0 ng/mL Normal 30-100 [facility] Comment on above: Result Comment: Lindsay min D Status Deficiency: <20 ng/mL (50nmol/L) Insufficiency: 20-30 ng/mL (50-75 nmol/L) Sufficiency: 30-100 ng/mL (75-250 nmol/L) Toxicity: >100 ng/mL (>250 nmol/L) Performed By: #### L 506.1001, L500.4050, L501.9520, L500.4100, L100.0100 #### [facility] [address] [place], [address] Ophthalmic Lens Inspector Office Visit Reporton 12-19-2024 Ophthalmic Lens Inspector Office Visit Report [facility] [address], [address] [place] [address] OFFICE VISIT Date of Service: 12/19/24 MR#: [id number] Acct: [id number] Name: ELZBIETA JENNINGS Rep #: [id number] : 1965 Provider: Dr. 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 Normal [facility] Breast imaging reportOrdered By: Vlad Ignacio on 12-05-2024 Study report [facility] Imaging Services [address] [place] [address] 0001[address] SCRN MAMM (CAD)W/JOCELINE BILAT MR#: [id number] Acct: [id number] Name: ELZBIETA JENNINGS Rep #: [id number] : 1965 F 59 From: Atul Ignacio MD PCP: Dr. Vega Strickland, DO Status: REG CLI Study:SCRN MAMM (CAD)W/JOCELINE BILAT Date of Exa m: 12/05/24 Exam# [id number] Ordering Dr: Khadijah Hill MD EXAM: SCRN [...] be mailed to the patient. Reading Location: [id number] CC: Dr. Vega Strickland DO; Dr. Khadijah Hill MD ~ Chicken Raiser: Signed [facility] SCRN MAMM (CAD)W/JOCELINE BILATo n 12-05-2024 SCRN MAMM (CAD)W/JOCELINE BILAT [facility] Imaging Services [address] [place] [address] SCRN MAMM (CAD)W/JOCELINE BILAT MR#: [id number] Acct: [id number] Name: ELZBIETA JENNINGS Rep #: [id number] : 1965 F 59 From: Vlad cunningham MD PCP: Dr. Vega Strickland DO Status: REG CLI Study: SCRN MAMM (CAD)W/JOCELINE BILAT Date of Exam: 08/26 Exam# [id number] Ordering Dr: Khadijah Hill EXAM: SCRN MAMM [...] be mailed to the patient. Reading Location: [id number] CC: Dr. Vega Strickland DO; Dr. Khadijah Hill MD Chicken Raiser: Signed Normal [facility] Absolute lymphocyte countOrd ered By: Vega Strickland on 03-06-2023 Lymphocytes Auto (Unsp spec) [#/Vol] 1.50 10*3/uL 0.83-4.51 [facility] Basophil percentageOrdered B y: Vega Strickland on 03-06-2023 Basophils/100 WBC (Bld) 1.3 % 0-1 [facility] Bilirubin [Mass/Vol] 0.60 mg/dL 0.20-1.00 [facility] Comment on above: For patients on eltr ombopag therapy, use of Dimension [place] TBIL is not recommended. Chloride [Moles/Vol] 106 mmol/L 98-107 [facility] Cholesterol [Mass/Vol] 237 mg/dL <200 [facility] Comment on above: <200 mg/dL Desirable 200-240 mg/dL Borderline >240 mg/dL High Risk Eosinophils/100 WBC (Bld) 3.8 % 0-5 [facility] Glucose [Mass/Vol] 107 mg/dL 74-106 [facility] Comment on above: Fasting Glucose resu lt from 100 to 125 mg/dL suggests IMPAIRED HOMEOSTASIS per A.D.A. criteria. Neutrophils (Bld) [#/Vol] 3.8 10*3/uL 2.0-7.7 [facility] Neutrophils/100 WBC (Bld) 63.1 % 47-70 [facility] Potassium [Moles/Vol] 3.8 mmol/L 3.5-5.1 [facility] Protein [Mass/Vol] 7.5 g/dL 6.4-8.2 [facility] Sodium [Moles/Vol] 140 mmol/L 136-145 [facility] Triglyceride [Mass/Vol] 104 mg/dL <199 [facility] Comment on above: The drugs N-Acetylcy steine and Metamizole may falsely depress this assay.Serum Triglycerides Reference Interval Normal <150 mg/dL Borderline high 150 - 199 mg/dL High 200 - 499 mg/dL Very High > or = 500 mg/dL WBC (Bld) [#/Vol] 6.1 10*3/uL 4.4-11.0 [facility] Blood erythrocytes count (nu mber/volume)Ordered By: Vega Strickland on 03-06-2023 RBC (Bld) [#/Vol] 5.34 10*6/uL 4.2-5.4 [facility] Blood hemoglobin measurement (mass/volume)Ordered By: Vega Strickland on 03-06-2023 Hemoglobin (Bld) [Mass/Vol] 15.9 g/dL 12.0-15.0 [facility] Blood lymphocytes/100 leukoc ytesOrdered By: Vega Strickland on 03-06-2023 Lymphocytes/100 WBC (Bld) 24.6 % 19-41 [facility] Blood monocytes/100 leukocyt esOrdered By: Vega Strickland on 03-06-2023 Monocytes/100 WBC (Bld) 6.9 % 0-10 [facility] Blood platelet mean volumeOr dered By: Vega Strickland on 03-06-2023 Platelet mean volume (Bld) [Entitic vol] 10.3 fL 6.2-12.0 [facility] Determination of erythrocyte mean corpuscular volume (MCV)Ordered By: Vega Strickland on 03-06-2023 MCV (RBC) [Entitic vol] 90.1 fL 81-99 [facility] Hematocrit Auto (Bld) [Volum e fraction]Ordered By: Vega Strickland on 03-06-2023 Hematocrit (Bld) [Volume fraction] 48.1 % 37-47 [facility] Laboratory - Chemistry and C hemistry - challengeOrdered By: Vega Strickland on 03-06-2023 ALP [Catalytic activity/Vol] 105 U/L 45-117 [facility] ALT [Catalytic activity/Vol] 32 U/L 13-56 [facility] CO2 [Moles/Vol] 31.0 mmol/L 21.0-32.0 [facility] Globulin (S) [Mass/Vol] 3.6 g/dL 2.2-4.2 [facility] Urea nitrogen/Creatinine [Mass ratio] 22.6 mg/mg 10-20 [facility] Laboratory - Hematology and Cell countsOrdered By: Vega Strickland on 03-06-2023 Erythrocyte distribution width (RBC) [Entitic vol] 40.3 fL 35.1-43.9 [facility] Erythrocyte distribution width (RBC) [Ratio] 12.3 % 11.6-14.6 [facility] Immature granulocytes/100 WBC (Bld) 0.300 % 0.0-0.9 [facility] Comment on above: IG% - Immature Granu locytes (promyelocytes, myelocytes and metamyelocytes) > 1% indicates that a LEFT SHIFT is Present. MCH (RBC) [Entitic mass] 29.8 pg 27.0-32.0 [facility] Nucleated RBC/100 WBC (Bld) [Ratio] 0 % 0-5 [facility] MCHC Auto (RBC) [Mass/Vol]Or dered By: Vega Strickland on 03-06-2023 MCHC (RBC) [Mass/Vol] 33.1 g/dL 32-36 [facility] No Panel InformationOrdered By: Vega Strickland on 03-06-2023 Estimated GFR (MDRD) Amer 128 mL/min >60 [facility] Comment on above: GFR Calc Estimated GFR (MDRD) Non-Af Amer 106 mL/min >60 [facility] Comment on above: Non- GFR Calc Vitamin D 25-Hydroxy 42.7 ng/mL [facility] Comment on above: Vitamin D 25(OH) Sta tus Range Deficiency <20 ng/mL (50nmol/L) Insufficiency 20 - 30 ng/mL (50 - 75 nmol/L) Sufficiency 30 - 100 ng/mL (75 - 250 nmol/L) Toxicity >100 ng/mL (>250 nmol/L) Platelets bldOrdered By: Chasidy Strickland on 03-06-2023 Platelets (Bld) [#/Vol] 212 10*3/uL 150-450 [facility] Serum or plasma albumin tomer urement (mass/volume)Ordered By: Vega Strickland on 03-06-2023 Albumin [Mass/Vol] 3.9 g/dL 3.2-5.0 [facility] Serum or plasma albumin/glob ulin mass ratioOrdered By: Vega Strickland on 03-06-2023 Albumin/Globulin [Mass ratio] 1.1 {ratio} 0.9-2.4 [facility] Serum or plasma calcium tomer urement (mass/volume)Ordered By: Vega Strickland on 03-06-2023 Calcium [Mass/Vol] 9.1 mg/dL 8.5-10.1 [facility] Serum or plasma cholesterol in HDL measurement (mass/volume)Ordered By: Vega Strickland on 03-06-2023 Cholesterol in HDL [Mass/Vol] 57 mg/dL >40 [facility] Comment on above: The drugs N-Acetylcy steine and Metamizole may falsely depress this assay. Reference Range HDL <40 mg/dL Low HDL Cholesterol HDL >or= 60 mg/dL High HDL Cholesterol Serum or plasma cholesterol in VLDL measurement (mass/volume)Ordered By: Vega Strickland on 03-06-2023 Cholesterol in VLDL [Mass/Vol] 21 mg/dL 5-40 [facility] Serum or plasma creatinine m easurement (mass/volume)Ordered By: Vega Strickland on 03-06-2023 Creatinine [Mass/Vol] 0.62 mg/dL 0.55-1.02 [facility] Comment on above: The validity of the calculated GFR & GFRAA in patients over 70 years has not been determined. Clinical correlation is essential. Serum or plasma low density lipoprotein (LDL) cholesterol measurement (mass/volume)Ordered By: Vega Strickland on 03-06-2023 Cholesterol in LDL [Mass/Vol] 159 mg/dL 0-130 [facility] Serum or plasma urea nitroge n measurement (mass/volume)Ordered By: Vega Strickland on 03-06-2023 Urea nitrogen [Mass/Vol] 14 mg/dL 7-18 [facility] Thin prep Papanicolaou smear with manual screeningOrdered By: Vega Strickland on 03-06-2023 Thin prep Papanicolaou smear with manual screening 18 U/L 15-37 [facility] Thin prep Papanicolaou smear with manual screening 3 5-15 [facility] Cervical or vagninal specime n microscopic examination by cytology stain (reported asOrdered By: Khadijah Hill on 12-26-2022 Cytology report Cyto stain Doc (Cvx/Vag) Comment . [facility] Comment on above: The Pap smear is [...] DNA Probe+sig amp Ql (Cvx) Negative Negative [facility] Comment on above: This nucleic acid am plification test detects fourteen high- risk HPV types (16,18,31,33,35,39,45,51,52,56,58,59,66,68)without differentiation. Laboratory - CytologyOrdered By: Khadijah Hill on 12-26-2022 Helicopter Pilot Instructor Cyto stain Nom (Cvx/Vag) [ID] Comment . [facility] Comment on above: Davonte De La Paz totechnologist (ASCP) Laboratory - Miscellaneous t estsOrdered By: Khadijah Hill on 12-26-2022 Service comment (Unsp spec) [Interp] Comment . [facility] Comment on above: This liquid based Th inPrep(R) pap test was screened withthe use of an image guided system. Service comment (Unsp spec) [Interp] . . [facility] Liquid-based cerv Pap + CT/G C by GERALD w reflex to high-risk HPV for ASCUSOrdered By: Khadijah Hill on 12-26-2022 Cytology report Cyto stain.thin prep Doc (Cvx/Vag) Comment . [facility] Comment on above: Criteria not met, HP V Genotype not performed.Performed at: [facility] [id number] [place], [place] [id number] Director: Galo Chi MD, Phone: [phone] at: - [facility] [place], [place] [id number] Director: Cheryl Mesa MD, Phone: [phone] at: =G - [facility] [address] [place], [place] [id number] Director: Cheryl Mesa MD, Phone: [phone] No Panel InformationOrdered By: Khadijah Hill on 12-26-2022 Pathology report final diagnosis Narrative Comment . [facility] Comment on above: NEGATIVE FOR INTRAEP ITHELIAL LESION OR MALIGNANCY.CELLULAR CHANGES ASSOCIATED WITH ATROPHY ARE PRESENT. Basophil percentageon 2021 Cholesterol [Mass/Vol] 238 mg/dL <200 [facility] Work Phone: Comment on above: <200 mg/dL Desirable 200-240 mg/dL Borderline >240 mg/dL High Risk Triglyceride [Mass/Vol] 101 mg/dL <199 [facility] Work Phone: Comment on above: The drugs N-Acetylcy steine and Metamizole may falsely depress this assay.Serum Triglycerides Reference Interval Normal <150 mg/dL Borderline high 150 - 199 mg/dL High 200 - 499 mg/dL Very High > or = 500 mg/dL Serum or plasma cholesterol in HDL measurement (mass/volume)on 03-14-2022 Cholesterol in HDL [Mass/Vol] 53 mg/dL >40 [facility] Work Phone: Comment on above: The drugs N-Acetylcy steine and Metamizole may falsely depress this assay. Reference Range HDL <40 mg/dL Low HDL Cholesterol HDL >or= 60 mg/dL High HDL Cholesterol Serum or plasma cholesterol in VLDL measurement (mass/volume)on 03-14-2022 Cholesterol in VLDL [Mass/Vol] 20 mg/dL 5-40 [facility] Work Phone: Serum or plasma low density lipoprotein (LDL) cholesterol measurement (mass/volume)on 03-14-2022 Cholesterol in LDL [Mass/Vol] 165 mg/dL 0-130 [facility] Work Phone: Office Visit: Annualon 11-17 Documentation of current medications (procedure) Done Invalid Interpretation Code [facility] Fall risk assessment No Invalid Interpretation Code [facility] Protein mass conc Done [facility] Tobacco smoking status NHIS Never Invalid Interpretation Code [facility] Tobacco smoking status NHIS Never smoker [facility] Tobacco use CPHS Never smoker Invalid Interpretation Code [facility] CNOVon 10-31-2016 CNOV Office Visit (FAMPWS) ELZBIETA MANCUSO ([id number]) 1965 FDate Time Provider Department10/31/16 1:20 PM [...] 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 Vega Strickland DO Work Phone: [facility] 12-19-2024 08:44-0400 Body mass index (BMI) [Ratio] 22.8 kg/m2 Dr. Vega Strickland DO Work Phone: [facility] 12-19-2024 08:44-0400 Body weight 60.[address] Vega Strickland DO Work Phone: [facility] 12-19-2024 08:44-0400 Diastolic blood pressure 87 mm[Hg] Dr. Vega Strickland DO Work Phone: [facility] 12-19-2024 08:44-0400 Systolic blood pressure 130 mm[Hg] Dr. Vega Strickland DO Work Phone: [facility] 12-26-2022 09:14-0400 Body height 162.[address] Vega Strickland Work Phone: [facility] 12-26-2022 09:09-0400 Body mass index (BMI) [Ratio] 23.5 kg/m2 Dr. Vega Strickland Work Phone: [facility] 12-26-2022 09:09-0400 Body weight 62.[address] Vega Strickland Work Phone: [facility] 12-26-2022 09:09-0400 Diastolic blood pressure 88 mm[Hg] Dr. Vega Strickland Work Phone: [facility] 12-26-2022 09:09-0400 Systolic blood pressure 128 mm[Hg] Dr. Vega Strickland Work Phone: [facility] 12-23-2021 10:16-0400 Body height 162.[address] Vega Strickland Work Phone: [facility] Work Phone: 12-23-2021 10:16-0400 Body mass index (BMI) [Ratio] 23.8 kg/m2 Dr. Vega Strickland Work Phone: [facility] Work Phone: 12-23-2021 10:16-0400 Body weight 62.[address] Vega Strickland Work Phone: [facility] Work Phone: 12-23-2021 10:16-0400 Diastolic blood pressure 90 mm[Hg] Dr. Vega Strickland Work Phone: [facility] Work Phone: 12-23-2021 10:16-0400 Systolic blood pressure 130 mm[Hg] Dr. Vega Strickland Work Phone: [facility] Work Phone: 11-17-2016 08:06-0400 BMI (Body Mass Index) 22.49 kg/m2 Khadijah Hill MD [facility] 11-17-2016 08:06-0400 BP Diastolic 81 mm[Hg] Khadijah Hill MD [facility] 11-17-2016 08:06-0400 BP Systolic 117 mm[Hg] Khadijah Hill MD [facility] 11-17-2016 08:06-0400 Height 161.29 cm Khadijah Hill MD [facility] 11-17-2016 08:06-0400 Pulse (Heart Rate) 80 /min Khadijah Hill MD [facility] 11-17-2016 08:06-0400 Respiratory Rate 16 /min Khadijah Hill MD [facility] 11-17-2016 08:060400 Weight 58.51 kg Khadijah Hill MD [facility] Encounters Encounter Date Encounter Type Care Provider Facility Start: 03-15-2025 End: 03-15-2025 ambulatory [facility] Facility:[facility] Start: 03-09-2025 End: 03-09-2025 ambulatory [facility] Facility:[facility] Start: 03-06-2025 Encounter for genera l adult medical examination without abnormal findings [facility] Start: 03-06-2025 ambulatory [facility] Facility: [facility] Start: 12-19-2024 End: 12-19-[address] Khadijah Hill MD -[facility] Work Phone: Start: 12-19-2024 End: 12-19-[address] Khadijah Hill MD [facility] Start: 12-19-2024 End: 12-19-[address] Vega Strickland DO Work Phone: -[facility] Start: 12-05-2024 End: 12-05-[address] Vega Strickland DO Work Phone: -[facility] Start: 12-05-2024 End: 12-05-[address] Khadijah Hill MD -[facility] Work Phone: Start: 12-05-2024 End: 12-05-2024 ambulatory Khadijah Hill Facility:[facility] Start: 05-01-2023 End: 05-01-2023 ambulatory [facility] Work Phone: Start: 05-01-2023 End: 05-01-2023 Discharged Recurring [facility]-Occupational Therapy Work Phone: Start: 03-06-2023 End: 03-06-[address] Vega Strickland Work Phone: [facility] Work Phone: Start: 03-06-2023 End: 03-06-[address] Vega Strickland Work Phone: [facility]-Laboratory Work Phone: Start: 12-26-2022 End: 12-26-[address] Vega Strickland Work Phone: [facility] Work Phone: Start: 12-26-2022 End: 12-26-[address] [facility] Work [facility] Start: 12-26-2022 End: 12-26-[address] Vega Strickland Work Phone: [facility] Work Phone: Start: 12-02-2022 End: 12-02-2022 Discharged Recurring [facility]-Occupational Therapy Work Phone: Start: 12-01-2022 End: 12-01-2022 ambulatory [facility] Work Phone: Start: 12-01-2022 End: 12-01-2022 Patient encounter procedure [facility]-Outpatient Breast Imaging Work Phone: Start: 03-14-2022 End: 03-14-[address] Vega Strickland Work Phone: [facility] Work Phone: Start: 03-14-2022 End: 03-14-[address] Vega Strickland Work Phone: [facility], Jhonny Devonte [facility] Start: 12-23-2021 End: 12-23-[address] Vega Strickland Work Phone: [facility] Start: 11-27-2021 End: 11-27-2021 Patient encounter procedure [facility]-Outpatient Breast Imaging Start: 10-31-2016 End: 10-31-2016 Ambulatory RINKU A CEBUL III [facility] Jerry Procedures Date Procedure Procedure Detail Performing Clinician Start: 12-05-[address] Vega Strickland DO Work Phone: Start: 12-01-2022 Screening mammography Start: 11-27-2021 Screening mammography Start: 11-17-2016 End: 11-18-2016 Gynecologic examination Encounter for gynecological examination (general) (routine) with abnormal findings Khadijah Hill MD Plan of Treatment Date Care Activity Detail Author Start: 12-26-2022 Liquid based cervica l cytology screening [facility] Start: 11-19-2016 End: 11-20-2016 Transvaginal us, non-ob US Transvaginal [facility] Start: 11-19-2016 End: 11-20-2016 Us exam, pelvic, complete US Pelvis [facility] Start: 11-17-2016 End: 11-17-2016 Appointment Appointment [place] [facility] Start: 11-17-2016 End: 11-17-2016 Transvaginal us, non-ob US Transvaginal [facility] Start: 11-17-2016 End: 11-17-2016 Us exam, pelvic, complete US Pelvis [facility] MG Breast - bilatera l Screening [facility] Work Phone: Path report.final Dx Spec [facility] Payers Date Payer Category Payer Self-pay [id number] 2024 Unknown [id number] Unknown [id number] [id number] [id number] Unknown [id number] [id number] [id number] Unknown [id number] [id number] [id number] Unknown [id number] [id number] [id number] Unknown [id number] [id number] [id number] Social History Date Type Detail Facility Start: 12-20-2020 End: 12-26-2022 Tobacco smoking status NHIS Unknown if ever smoked [facility] Start: 1965 Sex Assigned At Female [facility] Start: 08-15-2024 Tobacco smoking stat us NHIS Never smoked tobacco (finding) [facility] Clinical Note 12-26-2022 Note Date & Type Note Facility 12-26-2022 Note [facility] Pap Smear Specimen Adequacy December 26, 2022 11:28am Comment . Satisfactory for evaluation. Endocervical and/or squamous metaplasticcells (endocervical component) are present. Comment on above: Satisfactory for kenya luation. Endocervical and/or squamous metaplasticcells (endocervical component) are present. Evaluation note Note Date & Type Note Facility Evaluation note No assessment information availa ble [facility] Work Phone: Evaluation note Note Date & Type Note Facility Evaluation note Diagnosis Onset Date Quebeck-Walker grade 3 cystocele acute Quebeck-Walker grade 3 rectocele acute Intramural uterine fibroid c hronic Encounter for routine gyneco logical examination noneactive [facility] Work Phone: Evaluation note Note Date & Type Note Facility Evaluation note Diagnosis Onset Date Resolution Cystocele and rectocele with incomplete uterovaginal prolapse acute December 8:37am Intramural uterine fibroid chronic December 19 8:37am Quebeck-Walker grade 3 cystocele deleted December 19 8:37am Quebeck-Walker grade 3 rectocele deleted December 19 8:37am Encounter for routine gynecological examination noneactive December 19 8:37am [facility] Work Phone: Reason for referral (narrative) Note Date & Type Note Facility Reason for referral (narrative) No reason for referral information available [facility] Work Phone: Summary Purpose Family History No [...] Will Yes May 28 9:11am Power of Quarter Inspector Yes May 28, 2020 9:11am Advance Directive Response Recorded Date/ Time Living Will Yes May 28 8:11am Power of Quarter Inspector Yes May 28, 2020 8:11am Chief Complaint and Reason for Visit Chief Complaint SCREENING Chief Complaint SCREENING 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 UCL REPAIR. PT HAS RX Chief Complaint SCREENING CTS R UPPER. UCL REPAIR. 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) December 19, 2024 8: 37am Reason for Visit Admit Date Cystocele and rectocele with incomplete uterovaginal prolapse December 19, 2024 8:37am Intramural uterine fibroid December 19, 2024 8:37am Quebeck-Walker grade 3 cystocele December 192024 8:37am Quebeck-Walker grade 3 rectocele December 192024 8:37am Encounter for routine gynecological exam ination December 19, 2024 8:37am Additional Source Comments INFORMATION SOURCE (unrecogn ized section and content) DATE CREATED AUTHOR 10/28/2017 [facility] DATE CREATED AUTHOR AUTHOR'S ORGANIZ ATION 03/16/2025 [facility] y [facility] Goals (unrecognized section and content) [...] BE BASED ON THE PRIMARY CLINICAL RECORDS. [facility]. provides no warranty or guarantee of the accuracy or completeness of information in this document.
--- NOTE | 2025-03-24 05:39 | PRE.ANES_ITS ---
ASA Classification* ASA Classification ASA Classification: 1 and E Assessment & Plan Anesthesia* Anesthesia Assessment Anesthesia Assessment: Discussed sedation and/or anesthesia options, risks, benefits, and alternatives with patient/parents/legal guardian/POA. Questions invited. The patient/parents/legal guardian/POA seems to understand and agrees to proceed with anesthesia plan. Reviewed the physical assessment, medical history, allergy history and patient home medications list prior to surgery/procedure/anesthetic and documented any changes. Performed airway and anesthesia risk assessments. Anesthesia Type Anesthesia Type: General History Source History Obtained from:: Patient and Chart Anesthesia Focused Assessment* Temperature: 98.1 F Pulse Rate: 98 Blood Pressure: 150/92 Respiratory Rate: 18 Pulse Ox: 98 Oxygen Delivery Method: Room Air Airway Assessment Mouth opens: >3 cm Mallampati Score: II Teeth Condition: Intact Neck Range of motion (ROM): Full ROM Labs Anesthesia Preop lab: CBC WBC, (4.4-11.0) 8.8 K/mm3 Today, 02:19 RBC, (4.2-5.4) 5.00 M/mm3 Today, 02:19 Hgb, (12.0-15.0) 14.7 g/dL Today, 02:19 Hct, (37-47) 44.3 % Today, 02:19 Plt Count, (150-450) 180 K/mm3 Today, 02:19 CHEMISTRY Potassium, (3.3-5.1) 3.7 mmol/L Today, 02:19 Sodium, (133-145) 139 mmol/L Today, 02:19 BUN, (4-19) 16 mg/dL Today, 02:19 Creatinine, (0.70-1.20) 0.61 mg/dL L Today, 02:19 Glucose, (70-99) 125 mg/dL H Today, 02:19 TSH, (0.300-4.200) 2.380 uIU/mL 03/06/25, 06:05 COAG Pre-Assessment Diagnosis/Proposed Procedure Planned Operative Procedure(s): Laparoscopic appendectomy Anesthesia History 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 When Was Last Pacemaker Check QUESTION #4 FULL TEXT: You/Your Family Experience fever (hyperthermia) with Anesthesia Last Oral Intake Last Oral intake: Last Oral Intake NPO since Meds taken in AM with sips of water? Meds patient instructed to take am of surgery PONV PONV - motivational speaker: PONV - motivational speaker Female HX of Motion Sickness HX of N/V After Surgery Non-Smoker Duration of Surgery greater than 60 minutes Number of Risk Factors PONV Score Height & Weight Height & Weight: Anesthesia: Height & Weight Height 5 ft 4 in 03/24/25 04:09 Weight: 62.4 kg 03/24/25 04:09 Body Mass Index (BMI) 23.6 03/24/25 04:09 Respiratory Assessment Respiratory Assessment - motivational speaker: Respiratory Tract Infection Hx - motivational speaker Hx Respiratory Tract Infection No 08/15/24 12:02 STOP Sleep Apnea STOP Sleep Apnea - motivational speaker: STOP Sleep Apnea - motivational speaker Hx Hypertension Yes 03/24/25 04:09 Hx Sleep Apnea No 03/24/25 04:09 CPAP BIPAP Do you snore loudly (louder No 03/24/25 04:09 than talking or can be heard Do you often feel tired/ No 03/24/25 04:09 fatigued/ sleepy during daytime? Has anyone observed you stop No 03/24/25 04:09 breathing during sleep? STOP Results Negative 03/24/25 04:09 QUESTION #5 FULL TEXT : Do you snore loudly (louder than talking or can be heard through closed doors)? 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 Specify any problems Hx of Preganancy in last 3 Months Nurse Filling Out Transfusion & Questions: Date: Time: Patient unable to answer at this time (ie. confused, unrespo /Reproduction History /Reproductive History - motivational speaker: /Reproductive Hx- motivational speaker Hx Now No 03/24/25 04:09 Gestational Age (in weeks): EDC: Hx Hx Para Hx Section SAB No 03/24/25 04:09 Does the father of the baby or his family experience fever w Father of the baby Malignant Hypertension history comment [facility] Medical History Asthma Fibrocystic breast disease Home Medications ?Medication ?Instructions ?Recorded ?Last Taken ?Type fexofenadine 180 mg tablet 180 mg PO Q24H PRN allergy symptoms 11/19/17 Unknown History (Iraida Allergy) azelastine 137 mcg (0.1 %) nasal 2 spray intranasal BI D PRN allergy 12/23/21 Unknown History spray symptoms estradiol 0.01% (0.1 mg/gram) See Rx Instructions vagi nal 03/15/25 Unknown Rx vaginal cream .COMPLEX #42.5 grams Allergy/AdvReac Type Severity Reaction Status Date / Time Sulfa (Sulfonamide Allergy Rash Verified 03/24/25 01:42 Antibiotics) amoxicillin (From Augmentin) AdvReac Vomiting Verified 03/24/25 01:42 clavulanic acid (From AdvReac Vomiting Verified 03/24/25 01:42 Augmentin) Family History Mother Thyroid disorder Diabetes Father Hypertension Cancer squamous cell cancer Sister Breast cancer Surgical History History of carpal tunnel surgery of right wrist History of wisdom tooth extraction, class II edentulism H/O tubal ligation History of cholecystectomy Social History Smoking Status: Never smoker alcohol intake: never substance use type: does not use caffeine: No what type of physical activity do you participate in: aerobics frequency: 5-6 times per week seatbelt use: always do you feel safe at home: Yes additional social history: -Tomás Review of Systems (Anesthesia) ROS Narrative System reviewed and no additional complaints, except as documented.
[2025-03-24] MEDS: Lactated Ringers 1,000 ML 1000 ML IV (05:45)
--- NOTE | 2025-03-24 05:50 | APP_PTH ---
PATIENT: ELZBIETA JENNINGS LOC: MS3 U#:[id number] AGE/SX: 59/F ROOM: ID318 RE03/24/[address]: Dr. Lucille Varela MD : 1965 BED: 1 DIS: 03/24/2025 SPEC #: [id number] RECD: 03/24/25 07:14 STATUS: JESSIKA REApple #: [id number] [place]: 03/24/25 05:[address]: Lucille Varela DEPT: SURGICAL PATHOLOGY RECD BY: Teto Shaw ENTERED: 03/24/25 10:03 SP TYPE: APPENDIX OTHR DR: Dr. Vega Strickland, DO Tissues: A - Appendix, NOS Procedures: Surgery Specimen Level III HEADER OPERATION: Laparoscopic appendectomy PRE-OP DIAGNOSIS: Acute appendicitis TISSUE SUBMITTED: A- Appendix MICROSCOPIC DIAGNOSIS A. Appendix, laparoscopic appendectomy: * Acute appendicitis with periappendicitis MICROSCOPIC DESCRIPTION Slides are reviewed. GROSS DESCRIPTION A. Received in formalin labeled with the patient's name and date of . Designated as appendix is a 5.2 x 0.8-1.1 cm pink-red somewhat granular and dilated appendix with attached mesoappendix and focal serosal exudate. The margin is inked black and shaved. Sectioning reveals pink-spicer to red, granular mucosa with focal, possible fat infiltration near the distal tip; the lumen contains somewhat mucinous, blood-tinged material however, no definitive lesions are grossly appreciated. Labeling Strategist sections are submitted in 2 cassettes as follows: A1: Distal tip, marginA2: Cross-sections WA 03/24/2025 CPT:55069
[2025-03-24] MEDS: fentaNYL 100 MCG/2 ML Ampul IV (05:53)
[2025-03-24] MEDS: Midazolam 2 MG/2 ML Syringe IV (05:53)
[2025-03-24] MEDS: Lidocaine 1% (5 ml sdv) 5 ML Vial IV (05:53)
[2025-03-24] MEDS: Bupiv/Epi 0.25% 30 ML Vial (06:20)
--- NOTE | 2025-03-24 06:33 | PCM.OPRPT ---
Operative Report (Standard) Operative Information Date of Procedure: 03/24/25 Pre-Operative Diagnosis: Acute appendicitis Post-Operative Diagnosis: Same Surgery/Procedure Performed: Laparoscopic appendectomy punch out crew member: No Type of Anesthesia: General/Supplemental RN Documented Start/Stop Times: Operation Date: 03/24/25 05:50 Case Time Anesthesia Start 03/24/25 05:41 Into Room 03/24/25 05:41 Procedure Start 03/24/25 06:06 Procedure End 03/24/25 06:31 Anesthesia End 03/24/25 06:40 Out of Room 03/24/25 06:40 Into Recovery 03/24/25 06:41 Procedure Start Time: 06:06 Procedure Stop Time: 06:31 Select all DRAINS/GRAFTS/IMPLANTS that apply: None Special Medications: Cipro 400 mg IV x 1, Flagyl 500 mg IV x 1 Estimated Blood Loss: < 10 cc Specimen collected: Yes Description of specimen(s) removed: Appendix Description of surgery: Indications: 59-year-old female presented to the ER with new abdominal pain/right lower quadrant pain this morning. On workup she was found to have acute appendicitis on CT and normal white blood count no shift. Patient was started on antibiotics in the ER for acute appendicitis-Cipro 400 mg IV x 1 and Flagyl 500 mg IV x 1 Description of the procedure: The patient was placed on operating table in supine position. General anesthesia was induced. A timeout was completed verifying correct patient, procedure, position and special equipment prior to beginning procedure. Abdomen was prepped and draped in usual sterile fashion. Incision was made in the natural skin line above the umbilicus with a 15 blade scalpel. The fascia was elevated and incised. Entry into the peritoneum was confirmed visually and no bowel was noted in the vicinity of the incision. The Weir trocar was placed under direct vision. Abdomen insufflated with a pressure of 12-15 mmHg. Patient tolerated insertion well. The scope was inserted and the abdomen inspected. No injuries from initial trocar placement were noted. Minimal amount of fluid was seen in the right lower quadrant. An direct visualization 2 -5 mm trocars were placed one above the symphysis pubis and below the hairline and one in the left lower quadrant lateral to the rectus muscle. Care is taken to avoid injury to the bladder and inferior epigastric vessels. The table was placed in Trendelenburg position with the right side elevated. The appendix was grasped with atraumatic grasper and elevated. It was noted to be inflamed. A window was developed in the mesoappendix at the point between the base of the appendix and the cecum. An endoscopic 45 mm linear cutting stapler blue load was then used to divide and staple the base of the appendix. Enseal was used to divide the mesoappendix. The appendix was withdrawn into the Weir trocar after being placed endoscopically retrieval bag. Appendix was sent to pathology. The appendiceal stump was then irrigated and hemostasis was assured. Fluid was suctioned no other pathology was identified. Secondary trochars were removed under direct visualization. No bleeding was noted trocar sites. The laparoscope withdrawn and the umbilical trocar removed. The abdomen was allowed to collapse. Local anesthesia of 25 mL of 0.25% Marcaine with epi was used at the incision sites. The umbilical trocar site was closed with the [id number] 0 Vicryl suture. The skin was closed using sutures of 4-0 Monocryl and Steri-Strips. The patient was extubated. The patient tolerated the procedure well and was taken to the postanesthesia care unit in satisfactory condition. Surgical Findings: See operative report Complications Complications: No
--- NOTE | 2025-03-24 06:35 | DCINST_ITS ---
Discharge Instructions Diet Discharge Diet: Light diet - advance as tolerated Activity Discharge Activity: May Not Drive (while taking narcotic pain medications.) May shower in (days): 1 Lifting Restrictions: no lifting >20 lbs x 2 wks, no strenuous exercise for 4 wks Dressing / Incision Call your doctor if your incision/area has: Continuous Slow Oozing, Sudden Increased Bleeding, Increased Pain/ Swelling, Increased Redness, Foul Smelling Discharge and Swelling at the incision site Call your doctor if you observe: Fever of 101 or Higher Remove Dressing in: 2 days Cleanse incision/area with: Soap & Water Additional Dressing/Incision Instructions:: Steri-Strips will fall off in 7 to 10 days, if they do not fall off okay to remove after 10 days. Follow Up Care Please Follow Up With: Lucille Varela MD When: Call the office for a follow-up appointment 2 weeks; after 5 PM and on the weekends call [phone] with any concerns. Test Results: Test results from this visit will be discussed in further detail at your follow- up appointment, if applicable. Discharge Plan Admission Attending Provider: Lucille Varela Primary Care Provider: Vega Strickland Instructions Print Language: Brazilian Discharge Orders/Prescriptions Prescriptions: New oxycodone 5 mg capsule 5 mg PO Q6H PRN (Reason: pain) 3 Days Qty: 10 0RF Continued fexofenadine [Iraida Allergy] 180 mg tablet 180 mg PO Q24H PRN (Reason: allergy symptoms) azelastine 137 mcg (0.1 %) aerosol,spray 2 spray intranasal BID PRN (Reason: allergy symptoms) Rx Instructions: administer into each nostril estradiol 0.01 % (0.1 mg/gram) cream See Rx Instructions vaginal .COMPLEX Qty: 42.5 2RF Rx Instructions: small amount(.25mg) as directed vaginal twice a week; Referrals / Follow Up: Vega Strickland DO [Primary Care Provider, Family Practice] Disposition Disposition (needs filled in before D/C Order can be placed): Home, Self Care
--- NOTE | 2025-03-24 06:47 | PCM.POST.ANE ---
Anesthesia: Postop Eval I Current Vital Signs Temperature: 97.3 F Pulse Rate: 98 Blood Pressure: 113/72 Respiratory Rate: 18 Pulse Ox: 99 Oxygen Delivery Method: Room Air Assessment Airway patent: Yes Spontaneous unlabored respirations: Yes Mental status: Awake and Calm nausea: No Vomiting: No Anesthesia Complication: No Fluid Hydration Crystalloid volume administer (ml): 1,000 Total IV fluid infused: 1,000 Progress Note Anesthesia document: Postop Eval 1 completed: Yes
--- NOTE | 2025-03-24 09:41 | PHA.DC.COU.R ---
Pharmacy [facility] has performed discharge medication counseling for this patient. The patient was counseled on the following discharge medications and changes in medications for homegoing review. - Oxycodone 5 mg capsule The Reason for Use, instructions for use, and potential side effects were reviewed for all new medications. The patient's questions regarding all of their medications were answered. The patient was able to verbally demonstrate an understanding of their discharge medications. Medications at Discharge Home Medications fexofenadine 180 mg tablet (Iraida Allergy) 180 mg PO Q24H PRN allergy symptoms 11/19/17 azelastine 137 mcg (0.1 %) nasal spray 2 spray intranasal BID PRN allergy symptoms 12/23/21 estradiol 0.01% (0.1 mg/gram) vaginal cream See Rx Instructions vaginal .COMPLEX #42.5 grams 03/15/25 oxycodone 5 mg capsule 5 mg PO Q6H PRN pain 3 days #10 caps 03/24/25
--- OUTSIDE RECORDS SUMMARY | 2025-03-24 10:28 | XMS RPT_ITS | CCD ---
Author Organization [facility] Care Team Providers Care Planer Chain Offbearer Name Role Phone Sherrie Kovacs Maco Unavailable Unavailab Khadijah Gray MD Unavailable [phone] CEBUL IIIRINKU Unavailable Unavailable CEBUL III, RINKU A Unavailable Unavailable Khadijah Hill MD Unavailable [phone] Dr. Vega Strickland Primary Care Provider [phone] Dr[address] Vega Strickland Referring Provider Dr. Khadijah Hill Attending Provider [phone] Dr. Vega Strickland Primary Care Provider [phone] Dr. Vega Strickland Referring Provider [phone] Dr. Khadijah Hill Attending Provider [phone] [...] amoxicillin / clavulanate drug allergy 7 N/V [facility] (3 sources) Sulfonamides (Antibiotic) drug allergy 7 HIves [facility] (10 sources) Sulfonamides (Antibiotic); Translations: [SULFA (SULFONAMIDE ANTIBIOTICS)] Propensity to adverse reactions to drug (disorder) 6 [facility], [facility] Rep[facility] (1 source) AMOXICILLIN-POT CLAVULANATE; Translations: [AMOXICILLIN-POT CLAVULANATE] Propensity to adverse reactions to drug (disorder) 6 [facility] Repository (1 source) OTHER; Translations: [OTHER] Propensity to adverse reactions (disorder) 6 [facility] Repository (8 sources) Amoxicillin Drug Allergy 1 Vomiting [facility] (8 sources) Clavulanate Drug Allergy 1 [facility] (1 source) Amoxicillin Drug Allergy 5 [facility] Repository (1 source) Clavulanate Drug Allergy 5 [facility] Repository Medications Current Medications Medication [...] ALLERGY 180 MG TABS PRN FEXOFENADINE HCL [id number] Khadijah Hill MD Herbal Drugs capsule (2 [...] 50 MCG /ACT SUSP PRN MOMETASONE FUROATE [id number] Khadijah Hill MD Start: 11-17-2016 NASONEX 50 MCG /ACT SUSP PRN MOMETASONE FUROATE [id number] Khadijah Hill MD Multivitamin preparation (6 sources) [...] Test Name Value Interpretation Reference Range Facility [facility] Office Visit Reporton 03-15-2025 [facility] Office Visit Report [facility] [address], [address] [place] [address] OFFICE VISIT Date of Service: 03/15/25 MR#: [id number] Acct: [id number] Name: ELZBIETA JENNINGS Rep #: [id number] : 1965 Provider: MISSY Dela Cruz Age/Sex: 59/F [place] [facility] Status: Signed Intake Vital Signs 03/09/25 10:22 03/15/25 15:48 Height 5 ft 4 in 5 ft 4 in Weight: 136 lb 5 oz 135 lb BMI 23.3 23.1 BP 124/81 H 136/88 H Intake Visit Reasons: pessary causing pain Bulb Tester Required: No Is patient in pain?: No [...] grossly nor (more content not included)... 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 Normal [facility] CBC W/Diff, Automatedon 11-0 -2024 Absolute Lymph 1.93 X10 3/uL Normal 0.83-4.51 [facility] Comment on above: Performed By: #### L 506.1001, L500.4050, L501.9520, L500.4100, L100.0100 #### [facility] [address] [place], [address] Absolute Neut 3.0 X10 3/uL Normal 2.0-7.7 [facility] Comment on above: Performed By: #### L 506.1001, L500.4050, L501.9520, L500.4100, L100.0100 #### [facility] [address] [place], [address] Basophils/100 WBC (Bld) 1.2 % High 0-1 [facility] Comment on above: Performed By: #### L 506.1001, L500.4050, L501.9520, L500.4100, L100.0100 #### [facility] [address] [place], [address] Eosinophils/100 WBC (Bld) 4.7 % Normal 0-5 [facility] Comment on above: Performed By: #### L 506.1001, L500.4050, L501.9520, L500.4100, L100.0100 #### [facility] [address] [place], [address] Erythrocyte distribution width (RBC) [Ratio] 12.1 % Normal 11.6-14.6 [facility] Comment on above: Performed By: #### L 506.1001, L500.4050, L501.9520, L500.4100, L100.0100 #### [facility] [address] [place], [address] Hematocrit (Bld) [Volume fraction] 45.5 % Normal 37-47 [facility] Comment on above: Performed By: #### L 506.1001, L500.4050, L501.9520, L500.4100, L100.0100 #### [facility] [address] [place], [address] Hemoglobin (Bld) [Mass/Vol] 15.2 g/dL High 12.0-15.0 [facility] Comment on above: Performed By: #### L 506.1001, L500.4050, L501.9520, L500.4100, L100.0100 #### [facility] [address] [place], [address] IG% 0.200 Normal 0.0-0.9 [facility] Comment on above: Result Comment: IG% - Immature Granulocytes (promyelocytes, myelocytes and metamyelocytes) > 1% indicates that a LEFT SHIFT is Present. Performed By: #### L 506.1001, L500.4050, L501.9520, L500.4100, L100.0100 #### [facility] [address] [place], [address] Lymphocytes/100 WBC (Bld) 33.3 % Normal 19-41 [facility] Comment on above: Performed By: #### L 506.1001, L500.4050, L501.9520, L500.4100, L100.0100 #### [facility] [address] [place], [address] MCH (RBC) [Entitic mass] 29.3 pg Normal 27.0-32.0 [facility] Comment on above: Performed By: #### L 506.1001, L500.4050, L501.9520, L500.4100, L100.0100 #### [facility] [address] [place], [address] MCHC (RBC) [Mass/Vol] 33.4 g/dL Normal 32-36 [facility] Comment on above: Performed By: #### L 506.1001, L500.4050, L501.9520, L500.4100, L100.0100 #### [facility] [address] [place], [address] MCV (RBC) [Entitic vol] 87.7 fL Normal 81-99 [facility] Comment on above: Performed By: #### L 506.1001, L500.4050, L501.9520, L500.4100, L100.0100 #### [facility] [address] [place] [place], [address] Monocytes/100 WBC (Bld) 8.8 % Normal 0-10 [facility] Comment on above: Performed By: #### L 506.1001, L500.4050, L501.9520, L500.4100, L100.0100 #### [facility] [address] [place], [address] Neutrophils/100 WBC (Bld) 51.8 % Normal 47-70 [facility] Comment on above: Performed By: #### L 506.1001, L500.4050, L501.9520, L500.4100, L100.0100 #### [facility] [address] [place] [place], [address] Nucleated RBC (Bld) [#/Vol] 0 10*3/uL Normal 0-5 [facility] Comment on above: Performed By: #### L 506.1001, L500.4050, L501.9520, L500.4100, L100.0100 #### [facility] [address] [place] [place], [address] Platelet mean volume (Bld) [Entitic vol] 9.9 fL Normal 6.2-12.0 [facility] Comment on above: Performed By: #### L 506.1001, L500.4050, L501.9520, L500.4100, L100.0100 #### [facility] [address] [place], [address] Platelets (Bld) [#/Vol] 188 10*3/uL Normal 150-450 [facility] Comment on above: Performed By: #### L 506.1001, L500.4050, L501.9520, L500.4100, L100.0100 #### [facility] [address] [place], [address] RBC (Bld) [#/Vol] 5.19 10*6/uL Normal 4.2-5.4 [facility] Comment on above: Performed By: #### L 506.1001, L500.4050, L501.9520, L500.4100, L100.0100 #### [facility] [address] [place], [address] RDW SD 38.5 fl Normal 35.1-43.9 [facility] Comment on above: Performed By: #### L 506.1001, L500.4050, L501.9520, L500.4100, L100.0100 #### [facility] [address] [place], [address] WBC (Bld) [#/Vol] 5.8 10*3/uL Normal 4.4-11.0 [facility] Comment on above: Performed By: #### L 506.1001, L500.4050, L501.9520, L500.4100, L100.0100 #### [facility] [address] [place], [address] Comprehensive Metabolic [facility] 03-06-2025 Albumin [Mass/Vol] 4.3 g/dL Normal 3.5-5.0 [facility] Comment on above: Performed By: #### L 506.1001, L500.4050, L501.9520, L500.4100, L100.0100 #### [facility] [address] [place], [address] Albumin/Globulin [Mass ratio] 1.6 {ratio} Normal 0.9-2.4 [facility] Comment on above: Performed By: #### L 506.1001, L500.4050, L501.9520, L500.4100, L100.0100 #### [facility] [address] [place], [address] ALK PHOS 101 U/L Normal 35-104 [facility] Comment on above: Performed By: #### L 506.1001, L500.4050, L501.9520, L500.4100, L100.0100 #### [facility] [address] [place], [address] ALT [Catalytic activity/Vol] 25 U/L Normal <=34 [facility] Comment on above: Performed By: #### L 506.1001, L500.4050, L501.9520, L500.4100, L100.0100 #### [facility] [address] [place], [address] AST [Catalytic activity/Vol] 25 U/L Normal <=31 [facility] Comment on above: Performed By: #### L 506.1001, L500.4050, L501.9520, L500.4100, L100.0100 #### [facility] [address] [place], [address] Bilirubin [Mass/Vol] 0.77 mg/dL Normal 0.00-1.30 [facility] Comment on above: Performed By: #### L 506.1001, L500.4050, L501.9520, L500.4100, L100.0100 #### [facility] [address] [place], [address] BUN/CRE 27.4 RATIO High 10-20 [facility] Comment on above: Performed By: #### L 506.1001, L500.4050, L501.9520, L500.4100, L100.0100 #### [facility] [address] [place], [address] Calcium [Mass/Vol] 9.4 mg/dL Normal 7.6-11.0 [facility] Comment on above: Performed By: #### L 506.1001, L500.4050, L501.9520, L500.4100, L100.0100 #### [facility] [address] [place], [address] Chloride [Moles/Vol] 104 mmol/L Normal 98-108 [facility] Comment on above: Performed By: #### L 506.1001, L500.4050, L501.9520, L500.4100, L100.0100 #### [facility] [address] [place], [address] CO2 [Moles/Vol] 25.9 mmol/L Normal 21.0-32.0 [facility] Comment on above: Performed By: #### L 506.1001, L500.4050, L501.9520, L500.4100, L100.0100 #### [facility] [address] [place], [address] Creatinine [Mass/Vol] 0.54 mg/dL Low 0.70-1.20 [facility] Comment on above: Performed By: #### L 506.1001, L500.4050, L501.9520, L500.4100, L100.0100 #### [facility] [address] [place], [address] GAP 10 Normal 5-15 [facility] Comment on above: Performed By: #### L 506.1001, L500.4050, L501.9520, L500.4100, L100.0100 #### [facility] [address] [place], [address] GFR/1.73 sq M.predicted among non-blacks MDRD (S/P/Bld) [Vol rate/Area] 107 mL/min/{1.73_m2} Normal >60 [facility] Comment on above: Result Comment: mL/m in/1.73m2 CKD-EPI Creatinine Equation (2020) Performed By: #### L 506.1001, L500.4050, L501.9520, L500.4100, L100.0100 #### [facility] [address] [place], [address] Globulin (S) [Mass/Vol] 2.8 g/dL Normal 2.2-4.2 [facility] Comment on above: Performed By: #### L 506.1001, L500.4050, L501.9520, L500.4100, L100.0100 #### [facility] [address] [place], [address] Glucose [Mass/Vol] 97 mg/dL Normal 70-99 [facility] Comment on above: Performed By: #### L 506.1001, L500.4050, L501.9520, L500.4100, L100.0100 #### [facility] [address] [place], [address] Potassium [Moles/Vol] 3.8 mmol/L Normal 3.3-5.1 [facility] Comment on above: Performed By: #### L 506.1001, L500.4050, L501.9520, L500.4100, L100.0100 #### [facility] [address] [place], [address] Sodium [Moles/Vol] 140 mmol/L Normal 133-145 [facility] Comment on above: Performed By: #### L 506.1001, L500.4050, L501.9520, L500.4100, L100.0100 #### [facility] [address] [place], [address] T PROT 7.0 g/dL Normal 5.9-8.4 [facility] Comment on above: Performed By: #### L 506.1001, L500.4050, L501.9520, L500.4100, L100.0100 #### [facility] [address] [place], [address] Urea nitrogen [Mass/Vol] 15 mg/dL Normal 4-19 [facility] Comment on above: Performed By: #### L 506.1001, L500.4050, L501.9520, L500.4100, L100.0100 #### [facility] [address] [place], [address] Lipid Profileon 03-06-2025 CHOL:HDL 4.08 Normal [facility] Comment on above: Performed By: #### L 506.1001, L500.4050, L501.9520, L500.4100, L100.0100 #### [facility] [address] [place], [address] Cholesterol [Mass/Vol] 225 mg/dL High <=200 [facility] Comment on above: Result Comment: Chol esterol level, Desirable <200 mg/dL Borderline high cholesterol 200-239 mg/dL High cholesterol >=240 mg/dL Recommendations of the NCEP Adult Treatment Panel for the following risk-cutoff thresholds for the [place] population. Performed By: #### L 506.1001, L500.4050, L501.9520, L500.4100, L100.0100 #### [facility] [address] [place], [address] Cholesterol in HDL [Mass/Vol] 55 mg/dL Normal [facility] Comment on above: Result Comment: Jeanette onal Cholesterol Education Program (NCEP) guidelines: <40 mg/dL: Low HDL-cholesterol (major risk factor for CHD) >= 60 mg/dL: High HDL-cholesterol (negative risk factor for CHD) HDL-cholesterol is affected by a number of factors, e.g. smoking, exercise, hormones, sex and age. Performed By: #### L 506.1001, L500.4050, L501.9520, L500.4100, L100.0100 #### [facility] [address] [place], [address] Cholesterol in LDL [Mass/Vol] 153 mg/dL Normal [facility] Comment on above: Result Comment: Bord egvdnp=919-713 mg/dL Higher Ngfv=373 mg/dL or greater Dejesus Equation 2020 for LDL-C Performed By: #### L 506.1001, L500.4050, L501.9520, L500.4100, L100.0100 #### [facility] [address] [place], [address] Cholesterol in VLDL [Mass/Vol] 19 mg/dL Normal 5-40 [facility] Comment on above: Performed By: #### L 506.1001, L500.4050, L501.9520, L500.4100, L100.0100 #### [facility] [address] [place], [address] Triglyceride [Mass/Vol] 95 mg/dL Normal [facility] Comment on above: Result Comment: The drugs N-Acetylcysteine and Metamizole may falsely depress this assay. Normal range: <150 mg/dL Borderline High: 150-199 mg/dL High: 200-499 mg/dL Very High: >500 mg/dL Performed By: #### L 506.1001, L500.4050, L501.9520, L500.4100, L100.0100 #### [facility] [address] [place], [address] Thyroid Stim Hormone (TSH)on 03-06-2025 TSH 2.380 uIU/mL Normal 0.300-4.200 [facility] Comment on above: Performed By: #### L 506.1001, L500.4050, L501.9520, L500.4100, L100.0100 #### [facility] [address] [place], [address] Vitamin D,25 Hydroxyon 03-06 Vitamin D 25-OH 35.0 ng/mL Normal 30-100 [facility] Comment on above: Result Comment: Lindsay min D Status Deficiency: <20 ng/mL (50nmol/L) Insufficiency: 20-30 ng/mL (50-75 nmol/L) Sufficiency: 30-100 ng/mL (75-250 nmol/L) Toxicity: >100 ng/mL (>250 nmol/L) Performed By: #### L 506.1001, L500.4050, L501.9520, L500.4100, L100.0100 #### [facility] [address] [place], [address] [facility] Office Visit Reporton 12-19-2024 [facility] Office Visit Report [facility] [address], [address] [place] [address] OFFICE VISIT Date of Service: 12/19/24 MR#: [id number] Acct: [id number] Name: ELZBIETA JENNINGS Rep #: [id number] : 1965 Provider: Dr. 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 Normal [facility] Breast imaging reportOrdered By: Vlad Ignacio on 12-05-2024 Study report [facility] Imaging Services [address] [place] [address] [id number] SCRN MAMM (CAD)W/JOCELINE BILAT MR#: [id number] Acct: [id number] Name: ELZBIETA JENNINGS Rep #: [id number] : 1965 F 59 From: Atul Ignacio MD PCP: Dr. Vega Strickland, DO Status: REG CLI Study:SCRN MAMM (CAD)W/JOCELINE BILAT Date of Exa m: 12/05/24 Exam# [id number] Ordering Dr: Khadijah Hill MD EXAM: SCRN [...] be mailed to the patient. Reading Location: [id number] CC: Dr. Vega Strickland DO; Dr. Khadijah Hill MD ~ Radar Signal Processing Engineer: Signed [facility] SCRN MAMM (CAD)W/JOCELINE BILATo n 12-05-2024 SCRN MAMM (CAD)W/JOCELINE BILAT [facility] Imaging Services [address] [place] [address] SCRN MAMM (CAD)W/JOCELINE BILAT MR#: [id number] Acct: [id number] Name: ELZBIETA JENNINGS Rep #: [id number] : 1965 F 59 From: Vlad cunningham MD PCP: Dr. Vega Strickland DO Status: REG CLI Study: SCRN MAMM (CAD)W/JOCELINE BILAT Date of Exam: 08/26 Exam# [id number] Ordering Dr: Khadijah Hill EXAM: SCRN MAMM [...] be mailed to the patient. Reading Location: [id number] CC: Dr. Vega Strickland DO; Dr. Khadijah Hill MD Radar Signal Processing Engineer: Signed Normal [facility] Absolute lymphocyte countOrd ered By: Vega Strickland on 03-06-2023 Lymphocytes Auto (Unsp spec) [#/Vol] 1.50 10*3/uL 0.83-4.51 [facility] Basophil percentageOrdered B y: Vega Strickland on 03-06-2023 Basophils/100 WBC (Bld) 1.3 % 0-1 [facility] Bilirubin [Mass/Vol] 0.60 mg/dL 0.20-1.00 [facility] Comment on above: For patients on eltr ombopag therapy, use of Dimension [place] TBIL is not recommended. Chloride [Moles/Vol] 106 mmol/L 98-107 [facility] Cholesterol [Mass/Vol] 237 mg/dL <200 [facility] Comment on above: <200 mg/dL Desirable 200-240 mg/dL Borderline >240 mg/dL High Risk Eosinophils/100 WBC (Bld) 3.8 % 0-5 [facility] Glucose [Mass/Vol] 107 mg/dL 74-106 [facility] Comment on above: Fasting Glucose resu lt from 100 to 125 mg/dL suggests IMPAIRED HOMEOSTASIS per A.D.A. criteria. Neutrophils (Bld) [#/Vol] 3.8 10*3/uL 2.0-7.7 [facility] Neutrophils/100 WBC (Bld) 63.1 % 47-70 [facility] Potassium [Moles/Vol] 3.8 mmol/L 3.5-5.1 [facility] Protein [Mass/Vol] 7.5 g/dL 6.4-8.2 [facility] Sodium [Moles/Vol] 140 mmol/L 136-145 [facility] Triglyceride [Mass/Vol] 104 mg/dL <199 [facility] Comment on above: The drugs N-Acetylcy steine and Metamizole may falsely depress this assay.Serum Triglycerides Reference Interval Normal <150 mg/dL Borderline high 150 - 199 mg/dL High 200 - 499 mg/dL Very High > or = 500 mg/dL WBC (Bld) [#/Vol] 6.1 10*3/uL 4.4-11.0 [facility] Blood erythrocytes count (nu mber/volume)Ordered By: Vega Strickland on 03-06-2023 RBC (Bld) [#/Vol] 5.34 10*6/uL 4.2-5.4 [facility] Blood hemoglobin measurement (mass/volume)Ordered By: Vega Strickland on 03-06-2023 Hemoglobin (Bld) [Mass/Vol] 15.9 g/dL 12.0-15.0 [facility] Blood lymphocytes/100 leukoc ytesOrdered By: Vega Strickland on 03-06-2023 Lymphocytes/100 WBC (Bld) 24.6 % 19-41 [facility] Blood monocytes/100 leukocyt esOrdered By: Vega Strickland on 03-06-2023 Monocytes/100 WBC (Bld) 6.9 % 0-10 [facility] Blood platelet mean volumeOr dered By: Vega Strickland on 03-06-2023 Platelet mean volume (Bld) [Entitic vol] 10.3 fL 6.2-12.0 [facility] Determination of erythrocyte mean corpuscular volume (MCV)Ordered By: Vega Strickland on 03-06-2023 MCV (RBC) [Entitic vol] 90.1 fL 81-99 [facility] Hematocrit Auto (Bld) [Volum e fraction]Ordered By: Vega Strickland on 03-06-2023 Hematocrit (Bld) [Volume fraction] 48.1 % 37-47 [facility] - Chemistry and C hemistry - challengeOrdered By: Vega Strickland on 03-06-2023 ALP [Catalytic activity/Vol] 105 U/L 45-117 [facility] ALT [Catalytic activity/Vol] 32 U/L 13-56 [facility] CO2 [Moles/Vol] 31.0 mmol/L 21.0-32.0 [facility] Globulin (S) [Mass/Vol] 3.6 g/dL 2.2-4.2 [facility] Urea nitrogen/Creatinine [Mass ratio] 22.6 mg/mg 10-20 [facility] - Hematology and Cell countsOrdered By: Vega Strickland on 03-06-2023 Erythrocyte distribution width (RBC) [Entitic vol] 40.3 fL 35.1-43.9 [facility] Erythrocyte distribution width (RBC) [Ratio] 12.3 % 11.6-14.6 [facility] Immature granulocytes/100 WBC (Bld) 0.300 % 0.0-0.9 [facility] Comment on above: IG% - Immature Granu locytes (promyelocytes, myelocytes and metamyelocytes) > 1% indicates that a LEFT SHIFT is Present. MCH (RBC) [Entitic mass] 29.8 pg 27.0-32.0 [facility] Nucleated RBC/100 WBC (Bld) [Ratio] 0 % 0-5 [facility] MCHC Auto (RBC) [Mass/Vol]Or dered By: Vega Strickland on 03-06-2023 MCHC (RBC) [Mass/Vol] 33.1 g/dL 32-36 [facility] No Panel InformationOrdered By: Vega Stirckland on 03-06-2023 Estimated GFR (MDRD) Amer 128 mL/min >60 [facility] Comment on above: GFR Calc Estimated GFR (MDRD) Non-Af Amer 106 mL/min >60 [facility] Comment on above: Non- GFR Calc Vitamin D 25-Hydroxy 42.7 ng/mL [facility] Comment on above: Vitamin D 25(OH) Sta tus Range Deficiency <20 ng/mL (50nmol/L) Insufficiency 20 - 30 ng/mL (50 - 75 nmol/L) Sufficiency 30 - 100 ng/mL (75 - 250 nmol/L) Toxicity >100 ng/mL (>250 nmol/L) Platelets bldOrdered By: Chasidy Strickland on 03-06-2023 Platelets (Bld) [#/Vol] 212 10*3/uL 150-450 [facility] Serum or plasma albumin tomer urement (mass/volume)Ordered By: Vega Strickland on 03-06-2023 Albumin [Mass/Vol] 3.9 g/dL 3.2-5.0 [facility] Serum or plasma albumin/glob ulin mass ratioOrdered By: Vega Strickland on 03-06-2023 Albumin/Globulin [Mass ratio] 1.1 {ratio} 0.9-2.4 [facility] Serum or plasma calcium tomer urement (mass/volume)Ordered By: Vega Strickland on 03-06-2023 Calcium [Mass/Vol] 9.1 mg/dL 8.5-10.1 [facility] Serum or plasma cholesterol in HDL measurement (mass/volume)Ordered By: Vega Strickland on 03-06-2023 Cholesterol in HDL [Mass/Vol] 57 mg/dL >40 [facility] Comment on above: The drugs N-Acetylcy steine and Metamizole may falsely depress this assay. Reference Range HDL <40 mg/dL Low HDL Cholesterol HDL >or= 60 mg/dL High HDL Cholesterol Serum or plasma cholesterol in VLDL measurement (mass/volume)Ordered By: Vega Strickland on 03-06-2023 Cholesterol in VLDL [Mass/Vol] 21 mg/dL 5-40 [facility] Serum or plasma creatinine m easurement (mass/volume)Ordered By: Vega Strickland on 03-06-2023 Creatinine [Mass/Vol] 0.62 mg/dL 0.55-1.02 [facility] Comment on above: The validity of the calculated GFR & GFRAA in patients over 70 years has not been determined. Clinical correlation is essential. Serum or plasma low density lipoprotein (LDL) cholesterol measurement (mass/volume)Ordered By: Vega Strickland on 03-06-2023 Cholesterol in LDL [Mass/Vol] 159 mg/dL 0-130 [facility] Serum or plasma urea nitroge n measurement (mass/volume)Ordered By: Vega Strickland on 03-06-2023 Urea nitrogen [Mass/Vol] 14 mg/dL 7-18 [facility] Thin prep Papanicolaou smear with manual screeningOrdered By: Vega Strickland on 03-06-2023 Thin prep Papanicolaou smear with manual screening 18 U/L 15-37 [facility] Thin prep Papanicolaou smear with manual screening 3 5-15 [facility] Cervical or vagninal specime n microscopic examination by cytology stain (reported asOrdered By: Khadijah Hill on 12-26-2022 Cytology report Cyto stain Doc (Cvx/Vag) Comment . [facility] Comment on above: The Pap [...] DNA Probe+sig amp Ql (Cvx) Negative Negative [facility] Comment on above: This nucleic acid am plification test detects fourteen high- risk HPV types (16,18,31,33,35,39,45,51,52,56,58,59,66,68)without differentiation. Laboratory - CytologyOrdered By: Khadijah Hill on 12-26-2022 Research Methodologist Cyto stain Nom (Cvx/Vag) [ID] Comment . [facility] Comment on above: Davonte De La Paz totechnologist (ASCP) Laboratory - Miscellaneous t estsOrdered By: Khadijah Hill on 12-26-2022 Service comment (Unsp spec) [Interp] Comment . [facility] Comment on above: This liquid based Th inPrep(R) pap test was screened withthe use of an image guided system. Service comment (Unsp spec) [Interp] . . [facility] Liquid-based cerv Pap + CT/G C by GERALD w reflex to high-risk HPV for ASCUSOrdered By: Khadijah Hill on 12-26-2022 Cytology report Cyto stain.thin prep Doc (Cvx/Vag) Comment . [facility] Comment on above: Criteria not met, HP V Genotype not performed.Performed at: [facility] [id number] [place], [place] [id number] Director: Galo Chi MD, Phone: [phone] at: - [facility] [place], [place] [id number] Director: Cheryl Mesa MD, Phone: [phone] at: =G - [facility] [address] [place], [place] [id number] Director: Cheryl Mesa MD, Phone: [phone] No Panel InformationOrdered By: Khadijah Hill on 12-26-2022 Pathology report final diagnosis Narrative Comment . [facility] Comment on above: NEGATIVE FOR INTRAEP ITHELIAL LESION OR MALIGNANCY.CELLULAR CHANGES ASSOCIATED WITH ATROPHY ARE PRESENT. Basophil percentageon 2021 Cholesterol [Mass/Vol] 238 mg/dL <200 [facility] Work Phone: Comment on above: <200 mg/dL Desirable 200-240 mg/dL Borderline >240 mg/dL High Risk Triglyceride [Mass/Vol] 101 mg/dL <199 [facility] Work Phone: Comment on above: The drugs N-Acetylcy steine and Metamizole may falsely depress this assay.Serum Triglycerides Reference Interval Normal <150 mg/dL Borderline high 150 - 199 mg/dL High 200 - 499 mg/dL Very High > or = 500 mg/dL Serum or plasma cholesterol in HDL measurement (mass/volume)on 03-14-2022 Cholesterol in HDL [Mass/Vol] 53 mg/dL >40 [facility] Work Phone: Comment on above: The drugs N-Acetylcy steine and Metamizole may falsely depress this assay. Reference Range HDL <40 mg/dL Low HDL Cholesterol HDL >or= 60 mg/dL High HDL Cholesterol Serum or plasma cholesterol in VLDL measurement (mass/volume)on 03-14-2022 Cholesterol in VLDL [Mass/Vol] 20 mg/dL 5-40 [facility] Work Phone: Serum or plasma low density lipoprotein (LDL) cholesterol measurement (mass/volume)on 03-14-2022 Cholesterol in LDL [Mass/Vol] 165 mg/dL 0-130 [facility] Work Phone: Office Visit: Annualon 11-17 Documentation of current medications (procedure) Done Invalid Interpretation Code [facility] Fall risk assessment No Invalid Interpretation Code [facility] Protein mass conc Done [facility] Tobacco smoking status NHIS Never Invalid Interpretation Code [facility] Tobacco smoking status NHIS Never smoker [facility] Tobacco use [facility] Never smoker Invalid Interpretation Code [facility] CNOVon 10-31-2016 CNOV Office Visit (FAMPWS) ELZBIETA MANCUSO ([id number]) 1965 FDate Time Provider Department10/31/16 1:20 PM [...] 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 She was [...] and regular exercise ---150 min/wkfollow up with data warehousing manager for international account executive exam, including breast exam--per patientrequestFrank MOR Liu III MD 10/31/2016 1:48 PM SignedPLAN:healthy diet and regular exercise ---150 min/wkfollow up with data warehousing manager for international account executive exam, including breast examFrank Maco Stanley III MDReferring Provider: RINKU STANLEY III [[id number]]Allergies As of Date: 10/31/2016 Noted Allergy ReactionAUGMENTIN [...] regular exercise ---150 min/wk follow up with data warehousing manager for international account executive exam, including breast exam Rinku Stanley III MDEncounter Number: [id number] Status:Closed by RINKU STANLEY III, MD on 10/31/16 Normal [facility] PROGRESSon 10-31-2016 PROGRESS HNO ID: [id number]: Rinku Stanley IIIService: (none)Author Type: PhysicianType: Progress [...] 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 She [...] and regular exercise ---150 min/wkfollow up with data warehousing manager for international account executive exam, including breast exam--perpatient requestFrank MOR Liu MD [facility] Office Visit: Annualon 10-20 MG Breast screening Normal Bilateral Invalid Interpretation Code [facility] Office Visit: Annualon 11-04 General categories Cyto stain Interp (Cervical or vaginal smear or scraping) Normal Invalid Interpretation Code [facility] Vital Signs Date Time Vital Sign Value Performing Clinician Faci josh 12-19-2024 08:44-0400 Body height 162.[address] Vega Strickland DO Work Phone: [facility] 12-19-2024 08:44-0400 Body mass index (BMI) [Ratio] 22.8 kg/m2 Dr. Vega Strickland DO Work Phone: [facility] 12-19-2024 08:44-0400 Body weight 60.[address] Vega Strickland DO Work Phone: [facility] 12-19-2024 08:44-0400 Diastolic blood pressure 87 mm[Hg] Dr. Vega Strickland DO Work Phone: [facility] 12-19-2024 08:44-0400 Systolic blood pressure 130 mm[Hg] Dr. Vega Strickland DO Work Phone: [facility] 12-26-2022 09:14-0400 Body height 162.[address] Vega Strickland Work Phone: [facility] 12-26-2022 09:09-0400 Body mass index (BMI) [Ratio] 23.5 kg/m2 Dr. Vega Strickland Work Phone: [facility] 12-26-2022 09:09-0400 Body weight 62.[address] Vega Strickland Work Phone: [facility] 12-26-2022 09:09-0400 Diastolic blood pressure 88 mm[Hg] Dr. Vega Strickland Work Phone: [facility] 12-26-2022 09:09-0400 Systolic blood pressure 128 mm[Hg] Dr. Vega Strickland Work Phone: [facility] 12-23-2021 10:16-0400 Body height 162.[address] Vega Strickland Work Phone: [facility] Work Phone: 12-23-2021 10:16-0400 Body mass index (BMI) [Ratio] 23.8 kg/m2 Dr. Vega Strickland Work Phone: [facility] Work Phone: 12-23-2021 10:16-0400 Body weight 62.[address] Vega Strickland Work Phone: [facility] Work Phone: 12-23-2021 10:16-0400 Diastolic blood pressure 90 mm[Hg] Dr. Vega Strickland Work Phone: [facility] Work Phone: 12-23-2021 10:16-0400 Systolic blood pressure 130 mm[Hg] Dr. Vega Strickland Work Phone: [facility] Work Phone: 11-17-2016 08:06-0400 BMI (Body Mass Index) 22.49 kg/m2 Khadijah Hill MD [facility] 11-17-2016 08:06-0400 BP Diastolic 81 mm[Hg] Khadijah Hill MD [facility] 11-17-2016 08:06-0400 BP Systolic 117 mm[Hg] Khadijah Hill MD [facility] 11-17-2016 08:06-0400 Height 161.29 cm Khadijah Hill MD [facility] 11-17-2016 08:06-0400 Pulse (Heart Rate) 80 /min Khadijah Hill MD [facility] 11-17-2016 08:06-0400 Respiratory Rate 16 /min Khadijah Hill MD [facility] 11-17-2016 08:060400 Weight 58.51 kg Khadijah Hill MD [facility] Encounters Encounter Date Encounter Type Care Provider Facility Start: 03-15-2025 End: 03-15-2025 ambulatory [facility] Facility:[facility] Start: 03-09-2025 End: 03-09-2025 ambulatory [facility] [place] Start: 03-06-2025 Encounter for genera l adult medical examination without abnormal findings [facility] Start: 03-06-2025 ambulatory [facility] Facility: [facility] Start: 12-19-2024 End: 12-19-[address] Khadijah Hill MD -[facility] Work Phone: Start: 12-19-2024 End: 12-19-[address] Khadijah Hill MD [facility] Start: 12-19-2024 End: 12-19-[address] Vega Strickland DO Work Phone: -[facility] Start: 12-05-2024 End: 12-05-[address] Vega Strickland DO Work Phone: -[facility] Start: 12-05-2024 End: 12-05-[address] Khadijah Hill MD -[facility] Work Phone: Start: 12-05-2024 End: 12-05-2024 ambulatory Khadijah Hill Facility:[facility] Start: 05-01-2023 End: 05-01-2023 ambulatory [facility] Work Phone: Start: 05-01-2023 End: 05-01-2023 Discharged Recurring [facility]-Occupational Therapy Work Phone: Start: 03-06-2023 End: 03-06-[address] Vega Strickland Work Phone: [facility] Work Phone: Start: 03-06-2023 End: 03-06-[address] Vega Strickland Work Phone: [facility]-Laboratory Work Phone: Start: 12-26-2022 End: 12-26-[address] Vega Stirckland Work Phone: [facility] Work Phone: Start: 12-26-2022 End: 12-26-[address] [facility] Start: 12-26-2022 End: 12-26-[address] Vega Strickland Work Phone: [facility] Work Phone: Start: 12-02-2022 End: 12-02-2022 Discharged Recurring [facility]Occ[facility]ational [facility] Work Phone: Start: 12-01-2022 End: 12-01-2022 ambulatory [facility] Work Phone: Start: 12-01-2022 End: 12-01-2022 Patient encounter procedure [facility]-Outpatient Breast [facility] Work Phone: Start: 03-14-2022 End: 03-14-[address] Vega Strickland Work Phone: [facility] Work Phone: Start: 03-14-2022 End: 03-14-[address] Vega Strickland Work Phone: [facility], Jhonny Devonte [facility] Start: 12-23-2021 End: 12-23-[address] Vega Strickland Work Phone: [facility] Start: 11-27-2021 End: 11-27-2021 Patient encounter procedure [facility]Outpatient Breast Imaging Start: 10-31-2016 End: 10-31-2016 Ambulatory RINKU A CEBUL III [facility] Jerry Procedures Date Procedure Procedure Detail Performing Clinician Start: 12-05-[address] Vega Strickland DO Work Phone: Start: 12-01-2022 Screening mammography Start: 11-27-2021 Screening mammography Start: 11-17-2016 End: 11-18-2016 Gynecologic examination Encounter for gynecological examination (general) (routine) with abnormal findings Khadijah Hill MD Plan of Treatment Date Care Activity Detail Author Start: 12-26-2022 Liquid based cervica l cytology screening [facility] Start: 11-19-2016 End: 11-20-2016 Transvaginal us, non-ob US Transvaginal [facility] Start: 11-19-2016 End: 11-20-2016 Us exam, pelvic, complete US Pelvis [facility] Start: 11-17-2016 End: 11-17-2016 Appointment Appointment [place] Start: 11-17-2016 End: 11-17-2016 Transvaginal us, non-ob US Trans[facility]inal [facility] Start: 11-17-2016 End: 11-17-2016 Us exam, pelvic, complete US Pelvis [facility] MG Breast - bilatera l Screening [facility] Work Phone: Path report.final Dx Spec [facility] Payers Date Payer Category Payer Self-pay [id number] 2024 Unknown [id number] Unknown [id number] [id number] [id number] Unknown [id number] [id number] [id number] Unknown [id number] 2.16.8 [id number] Unknown [id number] 2.16.8 [id number] Unknown [id number] 2.16.8 [id number] Social History Date Type Detail Facility Start: 12-20-2020 End: 12-26-2022 Tobacco smoking status NHIS Unknown if ever smoked [facility] Start: 1965 Sex Assigned At Female [facility] Start: 08-15-2024 Tobacco smoking stat us NHIS Never smoked tobacco (finding) [facility] Clinical Note 12-26-2022 Note Date & Type Note Facility 12-26-2022 Note [facility] Pap Smear Specimen Adequacy December 26, 2022 11:28am Comment . Satisfactory for evaluation. Endocervical and/or squamous metaplasticcells (endocervical component) are present. Comment on above: Satisfactory for kenya luation. Endocervical and/or squamous metaplasticcells (endocervical component) are present. Evaluation note Note Date & Type Note Facility Evaluation note No assessment information availa ble [facility] Work Phone: Evaluation note Note Date & Type Note Facility Evaluation note Diagnosis Onset Date Red Level-Walker grade 3 cystocele acute Red Level-Walker grade 3 rectocele acute Intramural uterine fibroid c hronic Encounter for routine gyneco logical examination noneactive [facility] Work Phone: Evaluation note Note Date & Type Note Facility Evaluation note Diagnosis Onset Date Resolution Cystocele and rectocele with incomplete uterovaginal prolapse acute December 8:37am Intramural uterine fibroid chronic December 19 8:37am Red Level-Walker grade 3 cystocele deleted December 19 8:37am Red Level-Walker grade 3 rectocele deleted December 19 8:37am Encounter for routine gynecological examination noneactive December 19 8:37am [facility] Work Phone: Reason for referral (narrative) Note Date & Type Note Facility Reason for referral (narrative) No reason for referral information available [facility] Work Phone: Summary Purpose Family [...] Will Yes May 28 9:11am Power of Front Desk Worker Yes May 28, 2020 9:11am Advance Directive Response Recorded Date/ Time Living Will Yes May 28 8:11am Power of Front Desk Worker Yes May 28, 2020 8:11am Chief Complaint and Reason for Visit Chief Complaint SCREENING Chief Complaint SCREENING 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 UCL REPAIR. PT HAS RX Chief Complaint SCREENING CTS R UPPER. UCL REPAIR. 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) December 19, 2024 8: 37am Reason for Visit Admit Date Cystocele and rectocele with incomplete uterovaginal prolapse December 19, 2024 8:37am Intramural uterine fibroid December 19, 2024 8:37am Red Level-Walker grade 3 cystocele December 192024 8:37am Red Level-Walker grade 3 rectocele December 192024 8:37am Encounter for routine gynecological exam ination December 19, 2024 8:37am Additional Source Comments INFORMATION SOURCE (unrecogn ized section and content) DATE CREATED AUTHOR 10/28/2017 [facility] DATE CREATED AUTHOR AUTHOR'S ORGANIZ ATION 03/16/2025 [facility] y [facility] Goals (unrecognized section and content) Goals [...] BE BASED ON THE PRIMARY CLINICAL RECORDS. [facility]. provides no warranty or guarantee of the accuracy or completeness of information in this document.
--- NOTE | 2025-03-24 12:12 | PCM.POSTANE2 ---
Anesthesia Postop Eval I Sum Postop Eval Completion status Anesthesia document: Postop Eval 1 completed: Yes Anesthesia Postop Eval I Summary Anesthesia Postop Eval I Summary: Anesthesia Postop Eval I: Assessment Summary Airway patent Yes 03/24/25 06:48 Spontaneous unlabored Yes 03/24/25 06:48 respirations Mental status Awake,Calm 03/24/25 06:48 nausea No 03/24/25 06:48 Vomiting No 03/24/25 06:48 Anesthesia Postop Eval I: Fluid Summary Crystalloid volume administer 1,000 03/24/25 06:48 (ml) Colloids volume administered ( ml) Blood Product volume administered (ml) Total IV fluid infused 1,000 03/24/25 06:48 Anesthesia Postop Eval I: Summary Notes Anesthesia Complication No 03/24/25 06:48 Anesthesia Complication Comment: Post-operative progress note Anesthesia: Postop Eval II Evaluation Mental status: Awake Pain Level: 1 nausea: No Vomiting: No
== END 2025-03-24 16:12 | disposition home or self-care (01) ==
LOC: ED 02:12 → SDC 04:18 → MS3 04:18 → SDC 09:41 → MS3 09:41
PROVIDERS: Admitting Provider Surgery; Emergency Provider Specialist/Technologist Athletic Trainer; PCP Family Medicine; Referring Provider Surgery; Visit Provider Surgery
PROC: 0DTJ4ZZ Resection of Appendix, Percutaneous Endoscopic Approach (ICD-10-PCS; CPT 44970; principal; 2025-03-24 05:30)
DX: K35.80 Unspecified acute appendicitis (principal); Z79.899 Other long term (current) drug therapy; J32.9 Chronic sinusitis, unspecified; J45.909 Unspecified asthma, uncomplicated
CPT/HCPCS: 44970; 00840; 74177; 80053; 81001; 82274; 83605; 83690; 84484; 85025; 88304; 93005; 94668; 96361; 96374; 99284; Q9967; A4216; J0744; J2405

== ENCOUNTER → 2025-04-05 | Outpatient (CLI) | payer BC, SELFPAY | END | disposition home or self-care (01) | LOC: LABSPEC 10:44 | PROVIDERS: PCP Family Medicine; Visit Provider Nurse Practitioner Family | DX: N89.8 Other specified noninflammatory disorders of vagina (principal) | CPT/HCPCS: 87070; 87205 ==